=== PATIENT | male | born 1935 | race Caucasian/White ===

== ENCOUNTER 2019-05-31 18:08 | Inpatient (IN) | payer OTHER ==
[~2019-05-31] VITALS: Ht 172.7 cm; Wt 108.9 kg
[2019-05-31 18:08] VITALS: BP_SYST 104
--- NOTE | 2019-05-31 18:08 | NUR ---
BROUGHT IN BY ACLS RT AND [facility], PLACED IN BED #1 AND TRIAGED. REPORT GIVEN TO JOSELYN
--- NOTE | 2019-05-31 18:17 | NUR ---
Pt arrived via [facility] ambulance with RT at bedside for transport. Pt arrived from [facility] for abnormal labs. Pt is trach connected to vent, non-verbal. Pt connected to in room monitor.
--- NOTE | 2019-05-31 18:55 | NUR ---
ER Dr. Mancia at bedside examining patient.
--- NOTE | 2019-05-31 19:21 | NUR ---
Pt opens eyes spontaneously, pupils equal, sluggish to light accomodation. Trach-Vent dependent with Vent settings: A/C 14, Vt 500, PEEP 5, FiO2 40%. G-tube present and secure. Suprapubic cath secure and patent with yellow and cloudy urine to tubing and bag. 3-4+ pitting edema to bilat ankles and feet. VSS.
--- NOTE | 2019-05-31 19:21 | NUR ---
Pt endorsed to night RN at bedside.
[2019-05-31 19:36] LABS: MEAN CORPUSCULAR HEMOGLOBIN 35 pg (27-31); MEAN CORPUSCULAR HGB CONC 35 % (32-36); MEAN CORPUSCULAR VOLUME 101 fL (79.0-98.0); PLATELET COUNT (AUTO) 206 K/uL (130-430); RED CELL DISTRIBUTION WIDTH 19.7 % (9.0-15.0); WHITE BLOOD COUNT (AUTO) 9.1 K/uL (4.8-10.8)
[2019-05-31 19:40] LABS: RED BLOOD CELL COUNT(AUTO) 1.98 MIL/uL (4.2-6.2)
--- NOTE | 2019-05-31 19:40 | NUR ---
RT at bedside to obtain ABG. Lab also at bedside.
[2019-05-31 19:44] LABS: ANION GAP 3 (5-15); CALCIUM 8.3 mg/dL (8.4-11.0); CREATININE 0.84 mg/dL (0.55-1.30); GLUCOSE 154 mg/dL (70-99); UREA NITROGEN, BLOOD 67 mg/dL (8-21)
[2019-05-31 19:49] LABS: ALANINE AMINOTRANSFERASE 11 U/L (12-78); ALBUMIN 1.7 g/dL (3.4-4.8); ASPARTATE AMINOTRANSFERASE 20 U/L (10-37); TOTAL BILIRUBIN 0.5 mg/dL (0.0-1.0)
--- NOTE | 2019-05-31 20:00 | NUR ---
In line trach suction provided. Copious amount of thick white mucous suctioned.
[2019-05-31 20:11] LABS: SODIUM SERUM 116 mmol/L (136-145)
[2019-05-31 20:12] LABS: CHLORIDE 77 mmol/L (98-107); POTASSIUM 3.2 mmol/L (3.5-5.1)
--- NOTE | 2019-05-31 20:20 | NUR ---
# 20 gauge angiocath placed to LFA. Use of asceptic technique. Opsite placed over site. Blood return noted. Blood cultures x 2 and lactic acid drawn for lab from site. Flushed with 10 cc of normal saline. No evidence of infiltration noted. Patient tolerated well.
[2019-05-31 20:26] LABS: BAND % (MANUAL) 15 % (0-6); BASOPHILS % (MANUAL) 0 % (0-2); EOSINOPHILS % (MANUAL) 1 % (0-7); LYMPHOCYTES % (MANUAL) 25 % (20-46); MONOCYTES % (MANUAL) 6 % (0-11)
--- NOTE | 2019-05-31 20:30 | NUR ---
WBC WNL (9.1), Bands 15%, Lactic Acid 2.5. No fluid resuscitation per Dr. Stern r/t BNP 323. Zosyn 3.375 to be given.
[2019-05-31] MEDS ORDERED: PIPERACILLIN/TAZO 3.375 GM in NS 50 ML IV ONE (20:45)
[2019-05-31] MEDS ORDERED: LORA10TA7 GT (20:46)
[2019-05-31] MEDS ORDERED: CHLO473M5 MM (20:46)
[2019-05-31] MEDS ORDERED: DOCU-144 GT (20:47)
[2019-05-31] MEDS ORDERED: IPRA3AMP9 INH ×2 (20:48)
[2019-05-31] MEDS ORDERED: APIX2.5T GT (20:49)
[2019-05-31] MEDS ORDERED: CLON1TAB12 PO (20:50)
[2019-05-31] MEDS ORDERED: FURO-149 PO (20:50)
[2019-05-31] MEDS ORDERED: SYN50 GT (20:51)
[2019-05-31] MEDS ORDERED: MIDO10TA GT (20:52)
[2019-05-31] MEDS ORDERED: MULT-1100 GT (20:53)
[2019-05-31] MEDS ORDERED: OMEP-268 GT (20:54)
[2019-05-31] MEDS ORDERED: PHEN100O4 GT (20:55)
[2019-05-31] MEDS ORDERED: SENN8.6T19 PO (20:56)
[2019-05-31] MEDS ORDERED: ACET12.55 PO (20:57)
[2019-05-31] MEDS ORDERED: ACET12.55 GT (20:58)
[2019-05-31] MEDS ORDERED: CRAN1CAP6 GT (20:59)
[2019-05-31] MEDS ORDERED: VALP500S4 GT (21:00)
[2019-05-31] MEDS ORDERED: PIPERACILLIN/TAZOBACTAM 3.375 GM/VIAL (ZOSYN) IV ONE (21:01)
[2019-05-31] MEDS ORDERED: ASCO500S10 GT (21:02)
--- NOTE | 2019-05-31 21:03 | NUR ---
Wounds to decubitus with excoriation from right lateral gluteus to right lateral thigh. Wound to sacrum. No bandages noted to sites. Blue pads beneath pt and stuck to wounds with yellow slough noted. Dsg to left denominational region.
[2019-05-31] MEDS ORDERED: ZINC220T4 GT (21:04)
--- NOTE | 2019-05-31 21:04 | NUR ---
Medication reconciliation completed with information provided by Myron Tapia. Any prior medication reconciliation on file was reviewed and corrected.
[2019-05-31 21:25] LABS: PROTHROMBIN TIME 10.2 SECS (9.5-12.5)
[2019-05-31] MEDS ORDERED: PANTOPRAZOLE SODIUM 40 MG/VIAL (PROTONIX) IVP ONE (21:45)
--- NOTE | 2019-05-31 21:57 | NUR ---
Rubio santacruz in ED - 06/01/19 at 0109 by SDEDAJ Specimen collected for MRSA and sent to lab.
--- NOTE | 2019-05-31 21:59 | NUR ---
Dr. White at bedside.
[2019-05-31] MEDS ORDERED: FUROSEMIDE 100 MG in D5W 90 ML IV SCH (22:15)
[2019-05-31] MEDS ORDERED: ACETAMINOPHEN WITH CODEINE 12.5 ML UDC GT PRN (22:15)
[2019-05-31] MEDS ORDERED: IPRATROPIUM/ALBUTEROL SULFATE 3 ML AMPUL.NEB (DUONEB) INH PRN (22:15)
[2019-05-31 22:35] VITALS: BP_SYST 111
--- NOTE | 2019-05-31 22:35 | NUR ---
Patient will be admitted to care of Dr. White. Admitted to ICU unit. Will go to room 6. Summary report printed. Bedside report given to BENJAMIN Stevens.
--- NOTE | 2019-05-31 22:35 | NUR ---
ADMISSION NOTE Pt admitted from the ER. Pt brought in by ilan and placed in ICU bed 6. Pt connected to in room monitor, VSS with SR seen on the monitor. Pt trach to vent at this time. Vent settings: AC 14, TV 500, Fio2 40% and PEEP 5. Pt tolerating settings well with O2 sats @ 100% and even and unlabored breathing. Pt has a BEAN 20g SL. Patent/benign c/d/i. Gtube noted, clamped at this time. Suprapubic cath noted draining urine to gravity. Bed is locked and in lowest position, call light within, will cont to monitor pt.
[2019-05-31 23:00] VITALS: BP_SYST 90
[2019-05-31 23:44] VITALS: BP_SYST 104
[2019-05-31 23:47] VITALS: BP_SYST 90
[2019-06-01] VITALS (30 sets, daily range): BP systolic 73–141
--- NOTE | 2019-06-01 00:20 | NUR ---
DR FUNEZ NOTIFIED OF CONSULT AND AWARE OF THE LOW NA, BNP RESULTS.NO ORDERS GIVEN THIS TIME
--- NOTE | 2019-06-01 00:25 | NUR ---
DR CALZADA NOTIFIED OF CONSULT.MADE AWARE OF THE ABG RESULTS, VENT SETTINGS AND VITAL SIGNS AND GAVE ORDER.
[2019-06-01] MEDS: NOREPINEPHRINE BITARTRATE 8 MG in D5W 242 ML IV PRN (00:33)
[2019-06-01] MEDS ORDERED: NOREPINEPHRINE 4 MG/4 ML VIAL IV ONE (00:33)
--- NOTE | 2019-06-01 00:33 | NUR ---
Pt's BP low at this time. Levophed started @ 2 mcg/min per MD order. Will cont to monitor pt.
[2019-06-01] MEDS ORDERED: FUROSEMIDE 100 MG/10 ML VIAL ONE ×2 (00:49)
--- NOTE | 2019-06-01 02:00 | NUR ---
CHG CHG bath given to pt at this time, pt tolerated well. No signs of acute distress or discomfort noted. Will cont to monitor pt.
[2019-06-01 02:46] LABS: BILIRUBIN,URINE NEGATIVE (NEGATIVE); COLOR,URINE YELLOW (YELLOW); GLUCOSE,URINE NEGATIVE (NEGATIVE); KETONES,URINE NEGATIVE (NEGATIVE); LEUKOCYTE ESTERASE ,URINE 3+ (NEGATIVE); NITRITE, URINE POSITIVE (NEGATIVE); PH,URINE 7.5 (5.0-8.0); PROTEIN URINE NEGATIVE (NEGATIVE); UROBILINOGEN,URINE 0.2 (0.2-1.0)
[2019-06-01 02:48] LABS: BLOOD, URINE TRACE (NEGATIVE); CLARITY/URINE SLIGHTLY HAZY (CLEAR)
[2019-06-01 03:44] LABS: BACTERIA,URINE MANY /HPF (None Seen); WBC,URINE 20-50 /HPF (0-3)
--- NOTE | 2019-06-01 05:30 | NUR ---
Pt in bed with eyes closed resting comfortably. No signs of acute distress or discomfort noted. Bed is locked and in lowest position, call light within reach, will cont to monitor pt.
[2019-06-01] MEDS: VALPROIC ACID ORAL SYRUP 250 MG/5 ML UDC GT SCH ×2 (06:00→15:26)
[2019-06-01] MEDS: clonazePAM 0.5 MG TABLET PO SCH ×2 (06:00→15:28)
[2019-06-01 06:47] LABS: BASOPHILS # (AUTO) 0.1 K/uL (0.0-0.2); BASOPHILS % (AUTO) 0.5 % (0.0-2.0); EOSINOPHILS # (AUTO) 0.1 K/uL (0.0-0.4); EOSINOPHILS % (AUTO) 0.5 % (0.0-4.0); HEMATOCRIT 23.4 % (36-54); HEMOGLOBIN 8.1 g/dL (14.0-18.0); LYMPHOCYTES # (AUTO) 2.2 K/uL (1.0-5.5); LYMPHOCYTES % (AUTO) 16.7 % (20.5-51.5); MEAN CORPUSCULAR HEMOGLOBIN 35 pg (27-31); MEAN CORPUSCULAR HGB CONC 35 % (32-36); MEAN CORPUSCULAR VOLUME 102 fL (79.0-98.0); MONOCYTES # (AUTO) 0.9 K/uL (0.0-1.0); PLATELET COUNT (AUTO) 267 K/uL (130-430); RED CELL DISTRIBUTION WIDTH 19.9 % (9.0-15.0); WHITE BLOOD COUNT (AUTO) 13.3 K/uL (4.8-10.8)
[2019-06-01 06:57] LABS: PROTHROMBIN TIME 10.2 SECS (9.5-12.5)
[2019-06-01] MEDS ORDERED: LEVOTHYROXINE SODIUM 0.05 MG TABLET GT SCH (07:00)
[2019-06-01 07:13] LABS: NEUTROPHILS % (AUTO) 75.3 % (40.0-70.0)
[2019-06-01 07:17] LABS: ALANINE AMINOTRANSFERASE 12 U/L (12-78); ALBUMIN 1.8 g/dL (3.4-4.8); ASPARTATE AMINOTRANSFERASE 16 U/L (10-37); CALCIUM 8.5 mg/dL (8.4-11.0); CREATININE 0.91 mg/dL (0.55-1.30); GLUCOSE 146 mg/dL (70-99); PHENYTOIN (DILANTIN) 8.9 ug/mL (10.0-20.0); PHOSPHORUS 4.2 mg/dL (2.7-4.5); SODIUM SERUM 121 mmol/L (136-145); TOTAL BILIRUBIN 0.6 mg/dL (0.0-1.0); UREA NITROGEN, BLOOD 58 mg/dL (8-21); VALPROIC ACID 23 ug/mL (50-100)
--- NOTE | 2019-06-01 07:20 | NUR ---
Received patient and report from NOC shift. In no acute distress.
[2019-06-01] MEDS ORDERED: FUROSEMIDE 100 MG in D5W 90 ML IV SCH (07:23)
--- NOTE | 2019-06-01 07:25 | NUR ---
ENDORSEMENT Report given to oncoming dayshift RN using SBAR format and pt care was endorsed. No signs of acute distress or discomfort noted.
[2019-06-01 07:35] LABS: TOTAL IRON BIND. CAPACITY 239 ug/dL (250-450)
[2019-06-01 07:43] LABS: ANION GAP 2 (5-15); CHLORIDE 82 mmol/L (98-107); FREE T4 (FREE THYROXINE) 0.9 ng/dL (0.6-1.6); THYROID STIMULATING HORMONE 10.95 uIu/mL (0.34-4.82)
[2019-06-01 07:44] LABS: POTASSIUM 2.9 mmol/L (3.5-5.1)
[2019-06-01] MEDS ORDERED: POTASSIUM CHLORIDE 40 MEQ in NS 250 ML IV ONE (08:15)
--- NOTE | 2019-06-01 08:40 | NUR ---
Conservator Francesca eduardo [phone] Spoke with Myron Tapia regarding who makes medical decisions. They indicated to call the conservator Francesca. Called Francesca Dsouza at number indicated above. Her VM referred me to Emergency # [phone]. I called this number and no one answered and unable to leave a message. I called Francesca back at the number above and left her a VM indicating that I need urgent consent for procedures for their member that is here in the ICU. I also informed her that I was unable to reach anyone at the Emergency number provided in VM. I also indicated that her outgoing VM instructs the caller to call the emergency number if they are not available, yet there is no other number listed to call.
[2019-06-01] MEDS ORDERED: SENNOSIDES 8.6 MG TABLET GT PRN (08:45)
[2019-06-01] MEDS: PHENYTOIN 100 MG/4 ML UDC (DILANTIN) GT SCH ×2 (08:50→21:21)
[2019-06-01] MEDS: PANTOPRAZOLE SODIUM 40 MG/VIAL (PROTONIX) IVP SCH ×2 (08:50→21:21)
[2019-06-01] MEDS: LORATADINE 10 MG TABLET GT SCH (08:50)
[2019-06-01] MEDS: DOCUSATE SODIUM 100 MG CAPSULE PO SCH ×2 (08:50→21:20)
[2019-06-01] MEDS: CHLORHEXIDINE GLUCONATE 15 ML/DOSE, 480 ML MM SCH ×2 (09:38→21:45)
[2019-06-01] MEDS: ASCORBIC ACID 500 MG TABLET GT SCH (09:38)
[2019-06-01] MEDS: MULTIVITS,CA,MINERALS/IRON/FA 1 TABLET GT SCH (09:38)
[2019-06-01] MEDS ORDERED: NS 500 ML IV ONE (11:08)
--- NOTE | 2019-06-01 11:34 | NUR ---
Informed MD White hemoglobin 8.1 and hematocrit 23.4. Requested PICC line and DVT prophylaxis. MD White new order of venous doppler of bilateral lower extremities, midline, and to collect stool to test for occult blood. Orders placed.
[2019-06-01] MEDS: NACL 0.9% 1,000 ML IV SCH ×3 (11:58→17:59)
--- NOTE | 2019-06-01 12:24 | NUR ---
Nutrition Update Momo Scale 11 noted. Pt admitted for anemia and possible GI bleed. Diet: NPO BMI: 36.5 kg/m2 RD to follow per nutrition care standards.
[2019-06-01] MEDS ORDERED: CEFEPIME 1 GM in D5W 50 ML IV ONE (12:30)
[2019-06-01] MEDS: MICAFUNGIN SODIUM 100 MG in NS 100 ML IV SCH (15:28)
[2019-06-01] MEDS ORDERED: POTASSIUM CHLORIDE 20 MEQ/PKT PACKET PO ONE (17:30)
[2019-06-01] MEDS ORDERED: EPOETIN ALFA 4,000 UNITS/ML VIAL SUBCUT ONE (17:30)
--- NOTE | 2019-06-01 17:56 | NUR ---
Consult called for Dr. Muro and spoke to Helena.
--- NOTE | 2019-06-01 19:18 | NUR ---
Endorsed patient and gave report to oncoming shift. In no acute distress.
[2019-06-01] MEDS ORDERED: FLU VACC TS2019(65UP)/MF59C/PF 45 MCG/0.5 ML SYRINGE I.M. PRN (19:30)
--- NOTE | 2019-06-01 20:00 | NUR ---
TRACH TO VENT. RESPONDS TO NOXIOUS STIMULI. SUCTIONED TRACH VIA SANDHU WITH MOD AMOUNT OF THIN WHITE MUCUS OBTAINED. ORAL CARE GIVEN. GT CLAMPED. ON LEVOPHED DRIP AT 9 MCG/MIN. LASIX DRIP AT 5 MG/HR. AC PICC LINE DRSG D/I. SUPRAPUBIC CATH PATENT DRAINING CLEAR ROLO URINE TO GRAVITY. SR.
--- NOTE | 2019-06-01 21:00 | NUR ---
FLU SHOT GIVEN.
[2019-06-01] MEDS ORDERED: FUROSEMIDE 40 MG/4 ML VIAL ONE (21:15)
[2019-06-01] MEDS ORDERED: FUROSEMIDE 20 MG/2 ML VIAL ONE (21:16)
[2019-06-01] MEDS: POTASSIUM CHLORIDE 20 MEQ/PKT PACKET GT SCH (21:20)
[2019-06-01] MEDS: CEFEPIME 1 GM in D5W 50 ML IV SCH (21:21)
[2019-06-01] MEDS: FUROSEMIDE 100 MG in D5W 90 ML IV SCH (21:45)
--- NOTE | 2019-06-01 22:00 | NUR ---
HS CARE. SUCTIONED. TURNED. SCD'S CONTRAINDICATED BECAUSE OF MULTIPLE LEG WOUNDS.
[2019-06-02] VITALS (33 sets, daily range): BP systolic 102–142
--- NOTE | 2019-06-02 | NUR ---
GT FEEDING WITH PIVOT 1.5 STARTED AT 30CC/HR PER ORDER. GT FLUSHED WITH 50 CC H2O. ORAL CARE DONE. SUCTIONED WITH SAME RESULTS. TURNED AND REPOSITIONED.
--- NOTE | 2019-06-02 02:00 | NUR ---
ASLEEP. LEVOPHED DECREASED TO 8 MCG/MIN. SUCTIONED. TURNED.
[2019-06-02] MEDS: NACL 0.9% 1,000 ML IV SCH ×2 (02:21→15:06)
--- NOTE | 2019-06-02 04:00 | NUR ---
SUCTIONED. ORAL CARE DONE. TURNED. RESIDUAL CHECK 0.
[2019-06-02] MEDS ORDERED: NOREPINEPHRINE 4 MG/4 ML VIAL IV ONE (05:16)
[2019-06-02] MEDS: NOREPINEPHRINE BITARTRATE 8 MG in D5W 242 ML IV PRN (05:24)
--- NOTE | 2019-06-02 06:00 | NUR ---
OPENS EYES SPON. SUCTIONED AND TURNED Q2 HRS AND PRN. UO GOOD. GT FLUSHED WITH 50CC H2O. LASIX AT 5MG/HR. LEVOPHED AT 8 MCG/MIN. REMAINS IN GUARDED CONDITION.
[2019-06-02] MEDS: LEVOTHYROXINE SODIUM 0.075 MG TABLET PO SCH (06:06)
[2019-06-02 07:20] LABS: CHOLESTEROL 149 mg/dL (<200); HDL CHOLESTEROL 47 mg/dL (>45); LDL CHOLESTEROL 84 mg/dL (<100); TRIGLYCERIDES 103 mg/dL (30-150)
[2019-06-02 07:24] LABS: ALBUMIN 1.6 g/dL (3.4-4.8); ANION GAP 3 (5-15); ASPARTATE AMINOTRANSFERASE 16 U/L (10-37); CALCIUM 8.4 mg/dL (8.4-11.0); CHLORIDE 92 mmol/L (98-107); CREATININE 0.84 mg/dL (0.55-1.30); GLUCOSE 208 mg/dL (70-99); POTASSIUM 3.9 mmol/L (3.5-5.1); SODIUM SERUM 130 mmol/L (136-145); TOTAL BILIRUBIN 0.6 mg/dL (0.0-1.0); UREA NITROGEN, BLOOD 40 mg/dL (8-21)
--- NOTE | 2019-06-02 07:25 | NUR ---
AM NOTES: Received report from Dean ALEXANDER. patient lying in bed, open eyes,nonverbal, vent dependent trach shilley 7XLT, TV 500, Fio2 40%, rate 14, peep 5. no s/s of distress.on levophed 8mcg/kg/min. bp 108/45. picc line right upper arm patent with good blood return. g-tube pivot 1.5@ 30ml/hr. hob elevated to prevent aspiration. suprapubic cath draining dark yellow output. multiple skin issue, lyly lower extremities edematous elevated with pillow.
[2019-06-02] MEDS: POTASSIUM CHLORIDE 20 MEQ/PKT PACKET GT SCH ×2 (08:13→20:43)
[2019-06-02] MEDS: CEFEPIME 1 GM in D5W 50 ML IV SCH ×2 (08:13→20:48)
[2019-06-02] MEDS: PANTOPRAZOLE SODIUM 40 MG/VIAL (PROTONIX) IVP SCH ×2 (08:13→20:43)
[2019-06-02] MEDS: MULTIVITS,CA,MINERALS/IRON/FA 1 TABLET GT SCH (08:14)
[2019-06-02] MEDS: LORATADINE 10 MG TABLET GT SCH (08:14)
[2019-06-02] MEDS: ASCORBIC ACID 500 MG TABLET GT SCH (08:14)
[2019-06-02] MEDS: DOCUSATE SODIUM 100 MG CAPSULE PO SCH ×2 (08:14→20:43)
[2019-06-02] MEDS: PHENYTOIN 100 MG/4 ML UDC (DILANTIN) GT SCH ×2 (08:14→20:44)
[2019-06-02 08:15] LABS: ALANINE AMINOTRANSFERASE 7 U/L (12-78)
[2019-06-02] MEDS: CHLORHEXIDINE GLUCONATE 15 ML/DOSE, 480 ML MM SCH ×2 (08:16→20:56)
--- NOTE | 2019-06-02 09:00 | NUR ---
GI CONSULT: SEEN BY Fatuma FINK
--- NOTE | 2019-06-02 12:00 | NUR ---
ID CONSULT: SEEN BY DR. WARD.
[2019-06-02] MEDS: MICAFUNGIN SODIUM 100 MG in NS 100 ML IV SCH (12:15)
--- NOTE | 2019-06-02 13:15 | NUR ---
Dietitian Recommendations *Recommend Pivot 1.5 at 45ml/hr, Caden BID via GT. *FWF per physician. Provides: 1780 kcal, 106 gm protein and 819ml free water daily. Meets: 103% of estimated calorie needs and 101% of upper end of estimated protein needs. Please see Nutritional Assessment. LILIA, RD
--- NOTE | 2019-06-02 13:30 | NUR ---
G-TUBE FEEDING. INCREASE G TUBE FEEDING TO 40 ML/HR. GOAL 45ML/HR PER DIETITIAN RECOMMENDATION.
--- NOTE | 2019-06-02 13:39 | NUR ---
SS Notes: COUNTER CASER was referred to see pt for assessment. Pt is unable to be interviewed to due condition. COUNTER CASER attempted to phone conservator, Francesca Dsouza @ [phone], left a message to call back for collateral information. Pt is a resident of [facility]. COUNTER CASER spoke with Catherine (SW at [facility] @ [phone]) and information were gathered. Pt has been at [facility] since 10/12/2017 and was referred to them from [facility] and unknown prior to [facility]. Per Catherine, pt has no family and was never . Pt is a resident at their sub-acute unit, and is receiving 24 hr nursing care and respiratory therapy. Pt sees a resource protection specialist 1x/week and wound care on a daily basis. Per Catherine, pt was admitted to their facility with existing wounds. Pt does not qualify for [employer] due to income. SS will follow up with Lyndon (fryer operator).
--- NOTE | 2019-06-02 15:00 | NUR ---
patient keep on coughing, suction, oral care provided. keep hob elevated to prevent aspiration.
[2019-06-02] MEDS: LORazepam 2 MG/ML VIAL IVP PRN (15:06)
[2019-06-02] MEDS: FUROSEMIDE 100 MG in D5W 90 ML IV SCH (17:00)
--- NOTE | 2019-06-02 17:00 | NUR ---
WOUND EVALUATION: Late note for 06/02/19 at 1700 secondary to patient care. Wound Consult received from Dr. White. Thank you, Dr. White, for the consult. Patient received in a [place] Bed with an IsoFlex CHILO mattress, obtunded. Patient unable to turn in bed independently. Momo Score is an 11. Past Medical History: Tracheostomy, persistent vegetative state, Chronic Respiratory Failure, COPD, Obesity, chronic ventilator dependence, Dysphagia, G-tube feeding, Seizure disorder, CVA, Hypothyroidism, Hypertension. Recent Labs: WBC 13.3, RBC 2.30, hemoglobin 8.1, hematocrit 23.4, sodium 130, chloride 92, BUN 40, creatinine 0.84, glucose 208, magnesium 2.5, alkaline phosphatase 324, albumin 1.6. Microbiology: Wound culture results 2 in progress. Urine culture results negative. MRSA screen results negative. Stool occult blood results negative. Patient admitted with Hgb/Hct of 7.0/20.0. Intrinsic factors that delay wound healing: Chronic Respiratory Failure, COPD, chronic ventilator dependence, Dysphagia, G-tube feeding. Extrinsic factors that delay wound healing: Decreased mobility. Wound Assessment: 1. Left Heel: Arterial ulcer per [facility] staff, present on admission. Wound bed has 40% yellow slough, 40% brown slough, 10% pink tissue, 5% red tissue, 5% back slough. Foul odor, scant yellow purulent drainage. Periwound intact. Wound measures 5.8 cm x 5.0 cm. Recommend: Cleanse wound with normal saline. Apply moisture barrier cream to diana-wound. Apply Venelex ointment to wound bed. Cover with foam dressing. Perform wound care daily, and as needed for dressing soiling or dislodgement. 2. Left lateral malleolus: [facility], present on admission. Wound bed has 90% yellow slough, 10% pink tissue. No odor, scant yellow purulent drainage. Periwound intact. Wound measures 3.0 cm x 2.0 cm x 0.4 cm. Recommend: Cleanse wound with normal saline. Apply moisture barrier cream to diana-wound. Apply Venelex ointment to wound bed. Cover with foam dressing. Perform wound care daily, and as needed for dressing soiling or dislodgement. 3. Left distal posterior lower extremity, superior to calcaneus: Chronic wound of unknown etiology, present on admission. Site has 90% pink scar tissue, 10% brown scab. No odor, no drainage. Periwound intact. Site measures 1.2 cm x 1.2 cm. Recommend: Cleanse site with normal saline. Apply moisture barrier cream to site. Cover with foam dressing. Perform site care daily, and as needed for dressing soiling or dislodgement. 4. Right lateral lower extremity: Area of elevated tissue, with 80% pink tissue, 10% black discoloration, 10% red discoloration. No odor, no drainage. Diana-site intact. Site measures 2.0 cm x 1.7 cm. Recommend: Cleanse site with normal saline. Apply moisture barrier cream to site. Cover with foam dressing. Perform site care daily, and as needed for dressing soiling or dislodgement. 5. Right lateral lower extremity, inferior to site 3: Arterial ulcer per [facility] staff, present on admission. Wound bed has 85% yellow slough, 10% pink tissue, 5% red tissue. No odor, no drainage. Periwound intact. Wound measures 7.0 cm x 3.0 cm. 6. Right lateral foot: Arterial ulcer per [facility] staff, present on admission. Wound bed has 85% yellow slough, 10% pink tissue, 5% red tissue. No odor, no drainage. Periwound intact. Wound measures 2.7 cm x 1.7 cm x 0.3 cm. Recommend: Cleanse wounds with normal saline. Apply moisture barrier cream to diana-wounds. Apply Venelex ointment to wound beds. Cover with foam dressings. Perform wound care daily, and as needed for dressing soiling or dislodgement. 7. Posterior back: 8. Posterior bilateral thighs: 9. Pelvic area: 10. Sacral-Coccygeal/Buttocks areas: 11. Abdominal fold: 12. Bilateral inguinal folds: All areas have severe IAD with fungal infection, present on admission. Site have dark red tissue with large amounts of dry, flaky skin. Entire area from back area to Buttocks areas measured 66.7 cm x 48.5 cm. Recommend: Cleanse involved areas with mild soap and water. Pat dry. Place antifungal powder to involved areas. Lay inter-dry AG cloth underneath patient to hold antifungal powder onto skin. Perform site care twice a day, and as needed for soiling. 13. Scrotal area: Severe IAD with fungal infection, present on admission. Site has dark red tissue. Recommend: Cleanse involved area with mild soap and water. Pat dry. Apply antifungal powder to involved area. Lay inter-dry AG cloth underneath Scrotum and pull Scrotum up off of bed by pulling cloth through bilateral thigh/inguinal areas. Perform site care twice a day, and as needed for soiling. 14. Sacral-Coccygeal/Buttocks areas: Moisture associated skin damage that is converting to a pressure ulcer, present on admission. Site has 70% red tissue, 30% black scab versus eschar. No odor, scant sanguineous drainage. Entire site measures 16.0 cm x 14.5 cm. Recommend: Cleanse site with normal saline. Apply moisture barrier cream to diana-wound. Apply Venelex ointment to wound bed. Cover with non-adhesive foam dressings. Secure with transparent dressings. Perform wound care daily, and as needed for dressing soiling or dislodgement. 15. Posterior neck: Moisture associated skin damage from trach collar and intertriginous area, present on admission. Site has 90% denuded pink skin, 5% red scab, 5% black scab. No odor, scant serous drainage. Site measures 2.7 cm x 3.0 cm. 16. Left lateral neck: Moisture associated skin damage from trach collar and intertriginous area, present on admission. Patient also leans his head to the left, further compressing this area causing increased moisture. Site has 100% denuded pink skin. No odor, scant serous drainage. Site measures 2.7 cm x 3.0 cm. Recommend: Cleanse sites with normal saline. Thoroughly pat dry. Apply antifungal powder to sites. Cover with alginate dressing. Cut inter-dry AG cloth to size and place inside of trach collar over the alginate dressing. Perform site care BID, and as needed for dressing soiling or dislodgement. Change inter-dry AG cloth every 5 days, and as needed for cloth soiling or dislodgment. 17. Left lateral forehead: Wound, present on admission. Wound bed has 90% pink tissue, 5% red tissue, 5% yellow tissue. No odor, scant sanguineous is drainage. Periwound intact. Wound measures 2.7 cm x 3.0 cm. Recommend: Cleanse wound with normal saline. Apply moisture barrier cream to diana-wound. Apply Venelex ointment to wound bed. Cover with foam dressing. Perform wound care daily, and as needed for dressing soiling or dislodgement. Also recommend: Reposition patient side to side only every 2 hours with pillow support and off-load pressure areas with pillows for pressure re-distribution. Offload, elevate and float bilateral heels with pillows. Perform skin care and monitor skin integrity Q shift. Use moisture barrier cream on buttocks and other moisture susceptible areas QID and as needed for soiling. Initiate low air-loss therapy.
--- NOTE | 2019-06-02 17:00 | NUR ---
assisted wound care nurse. wound care provided.
[2019-06-02] MEDS ORDERED: ALBUMIN HUMAN 25% 200 ML IV ONE (17:45)
[2019-06-02] MEDS ORDERED: DEXTROSE 50% JECT 50 ML DISP.SYRIN IVP PRN (18:15)
--- NOTE | 2019-06-02 18:15 | NUR ---
MD mora is here updated patient current condition. informed patien has hx of Dm and no accucheck or sliding scale. stated he will order.
[2019-06-02] MEDS: NYSTATIN 15 GM TOPICAL POWDER TP SCH ×2 (18:47→20:50)
[2019-06-02] MEDS: INSULIN REGULAR, HUMAN 100 UNITS/ML, 10 ML VIAL (humuLIN R) SUBCUT PRN (18:48)
--- NOTE | 2019-06-02 19:01 | NUR ---
albumin iv infusing, blood pressure 129/59, decrease Levophed 4mcg/kg/min. patient stable condition. no s/s of distress, blood sugar 206, 4 units of regular insulin administered. g tube feeding infusing no residual noted 45ml/hr. Shipman catheter draining yellow color. lasix drip @5mg/hr. ns @ 100ml/hr. picc line patent with good blood return. all needs mets. will endorsed to incoming nurse.
--- NOTE | 2019-06-02 19:20 | NUR ---
AT 1920 P.M, RECEIVED NURSING REPORT FROM DAY SHIFT RMindaN, PATIENT IS OPEN EYES, NON VERBAL RESPONSE, UNABLE TO FOLLOW COMMANDS, TRACH VIA VENT. VENTILATOR SETTING : AC 14, TV 500, FIO2 40% PEEP 5, O2 SAT. 97-100%, B.P 124/59 MMHG, DEPENDED LEVOPHED DRIP 4 MCG/MIN, H.R 83 IS SINUS RHYTHM WITH FIRST DEGREE A-V BLOCK, RIGHT UPPER ARM PICC LINE DOUBLE LUMEN , HAD BLOOD RETURN, ORDERED ON LASIX 5 MG/HOUR, GENERALIZED EDEMA, G-T INTACT, FORMULA FEEDING TOLERATED WELL, SUPRAPUBIC CATHETER INTACT, DRAIN OUT YELLOW COLOR URINE, GIVE TOTAL CARE, REPOSITION EVERY 2 HOURS, KEEP DRY, CLEAN, COMFORTABLE SUPPORT ALL TIMES
[2019-06-02] MEDS: SOD FERRIC GLUC COMPLEX/SUC 125 MG in NS 100 ML IV SCH (20:43)
[2019-06-03] VITALS (33 sets, daily range): BP systolic 84–129
[2019-06-03] MEDS: NACL 0.9% 1,000 ML IV SCH ×2 (00:11→11:53)
[2019-06-03] MEDS: INSULIN REGULAR, HUMAN 100 UNITS/ML, 10 ML VIAL (humuLIN R) SUBCUT PRN ×5 (00:17→23:47)
[2019-06-03] MEDS: FUROSEMIDE 100 MG in D5W 90 ML IV SCH (00:58)
[2019-06-03] MEDS: LEVOTHYROXINE SODIUM 0.075 MG TABLET PO SCH (06:03)
[2019-06-03 06:06] LABS: MEAN CORPUSCULAR HEMOGLOBIN 36 pg (27-31); MEAN CORPUSCULAR HGB CONC 34 % (32-36); MEAN CORPUSCULAR VOLUME 106 fL (79.0-98.0); PLATELET COUNT (AUTO) 190 K/uL (130-430); RED CELL DISTRIBUTION WIDTH 20.2 % (9.0-15.0); WHITE BLOOD COUNT (AUTO) 9.9 K/uL (4.8-10.8)
[2019-06-03 06:20] LABS: RED BLOOD CELL COUNT(AUTO) 1.92 MIL/uL (4.2-6.2)
[2019-06-03 06:21] LABS: HEMATOCRIT 20.3 % (36-54); HEMOGLOBIN 6.9 g/dL (14.0-18.0)
[2019-06-03 06:26] LABS: ALANINE AMINOTRANSFERASE 12 U/L (12-78); ALBUMIN 2.2 g/dL (3.4-4.8); ASPARTATE AMINOTRANSFERASE 14 U/L (10-37); CALCIUM 7.9 mg/dL (8.4-11.0); CHLORIDE 96 mmol/L (98-107); CREATININE 0.85 mg/dL (0.55-1.30); GLUCOSE 207 mg/dL (70-99); LACTATE DEHYDROGENASE 126 U/L (85-227); PHOSPHORUS 2.9 mg/dL (2.7-4.5); POTASSIUM 4.5 mmol/L (3.5-5.1); SODIUM SERUM 130 mmol/L (136-145); TOTAL BILIRUBIN 0.7 mg/dL (0.0-1.0); UREA NITROGEN, BLOOD 33 mg/dL (8-21)
[2019-06-03 06:31] LABS: BAND % (MANUAL) 3 % (0-6); BASOPHILS % (MANUAL) 0 % (0-2); EOSINOPHILS % (MANUAL) 1 % (0-7); LYMPHOCYTES % (MANUAL) 22 % (20-46); METAMYELOCYTES % 3 % (0-0); MONOCYTES % (MANUAL) 12 % (0-11); MYELOCYTES % 5 % (0-0)
[2019-06-03 06:35] LABS: ANION GAP < 3 (5-15)
--- NOTE | 2019-06-03 06:49 | NUR ---
AT 0600 A.M, RECEIVED A/M LAB, H.b 6.8, REQUEST REDRAW H.b IS 6.9, AT [address] EUGENE , ORDERED GIVE BLOOD TRANSFUSION P-RBC 2 UNITS IN THIS MORNING
--- NOTE | 2019-06-03 07:20 | NUR ---
Opening Note Received plan of care from endorsing nurse Kaylah ALEXANDER. Completed patient round.
--- NOTE | 2019-06-03 07:30 | NUR ---
Called Francesca Bishop [phone] left message to discuss blood consent.
--- NOTE | 2019-06-03 07:33 | NUR ---
GIVE COMPLETE NURSING REPORT TO DAY SHIFT ALEJANDRINA Beach
[2019-06-03] MEDS: NOREPINEPHRINE BITARTRATE 8 MG in D5W 242 ML IV PRN (08:09)
--- NOTE | 2019-06-03 09:00 | NUR ---
Called Francesca Bishop [phone] left message to discuss blood consent.
[2019-06-03] MEDS: CHLORHEXIDINE GLUCONATE 15 ML/DOSE, 480 ML MM SCH ×2 (09:20→20:37)
[2019-06-03] MEDS: CEFEPIME 1 GM in D5W 50 ML IV SCH ×2 (09:21→20:26)
[2019-06-03] MEDS: BALSAM PERU/CASTOR OIL 60 GM OINT...G. TP SCH (09:21)
[2019-06-03] MEDS: ASCORBIC ACID 500 MG TABLET GT SCH (09:22)
[2019-06-03] MEDS: PHENYTOIN 100 MG/4 ML UDC (DILANTIN) GT SCH ×2 (09:22→20:33)
[2019-06-03] MEDS: PANTOPRAZOLE SODIUM 40 MG/VIAL (PROTONIX) IVP SCH ×2 (09:22→20:33)
[2019-06-03] MEDS: POTASSIUM CHLORIDE 20 MEQ/PKT PACKET GT SCH (09:22)
[2019-06-03] MEDS: LORATADINE 10 MG TABLET GT SCH (09:23)
[2019-06-03] MEDS: NYSTATIN 15 GM TOPICAL POWDER TP SCH ×2 (09:23→20:34)
[2019-06-03] MEDS: MULTIVITS,CA,MINERALS/IRON/FA 1 TABLET GT SCH (09:23)
[2019-06-03] MEDS: DOCUSATE SODIUM 100 MG CAPSULE PO SCH ×2 (09:23→20:33)
--- NOTE | 2019-06-03 09:30 | NUR ---
Called Francesca Bishop [phone] left message to discuss blood consent.
--- NOTE | 2019-06-03 10:00 | NUR ---
Received call from venancio Bishop. Received telephone consent for blood transfusion. Second RN witnessed.
--- NOTE | 2019-06-03 10:26 | NUR ---
Prep Person Note Patient's conservator, Francesca Stanfordn [phone], left a voicemail message. ICU stated they have received consent for the transfusions. Returned the call to conservator requesting verification that she agrees for patient to return to [facility] upon discharge.
--- NOTE | 2019-06-03 10:30 | NUR ---
Dr. Meredith at bedside. Received orders to reduce lasix to 3mg/hr.
--- NOTE | 2019-06-03 14:37 | NUR ---
Dr. White at bedside. Per Dr. White we will cancel NS fluid. Dr. White will place orders.
[2019-06-03] MEDS ORDERED: FLUDROCORTISONE ACETATE 0.1 MG TABLET( FLORINEF) PO ONE (15:30)
[2019-06-03] MEDS: MICAFUNGIN SODIUM 100 MG in NS 100 ML IV SCH (17:39)
--- NOTE | 2019-06-03 20:00 | NUR ---
AT 1913 P.M, RECEIVED NURSING REPORT FROM DAY SHIFT ALEJANDRINA Beach, AT 1949 P.M, FINISHED BLOOD TRANSFUSION P-RBC SECOND UNIT ,NO S/S OF ADVERSE REACTION AT THIS TIME ,PATIENT IS OPEN EYES, UNABLE TO FOLLOW COMMANDS , DEPENDED TOTAL CARE, VENT VIA TRACH, CONTINUE LASIX DRIP 3 MG/3 ML/HOUR, GIVE REPOSITION EVERY 2 HOURS, PADDED RAILS UP, KEEP CLEAN, SAFETY, COMFORTABLE SUPPORT ALL TIMES
[2019-06-03] MEDS: SOD FERRIC GLUC COMPLEX/SUC 125 MG in NS 100 ML IV SCH (20:26)
[2019-06-03] MEDS: CLOTRIMAZOLE/BETAMET DIPROP 15 GM TUBE TP SCH (20:38)
[2019-06-03] MEDS: FLUDROCORTISONE ACETATE 0.1 MG TABLET( FLORINEF) PO SCH (20:55)
[2019-06-03] MEDS: LORazepam 2 MG/ML VIAL IVP PRN (23:45)
[2019-06-04] VITALS (33 sets, daily range): BP systolic 85–118
--- NOTE | 2019-06-04 00:11 | NUR ---
AT 2342 P.M, FOND PATIENT HAD SEIZURE ATTACK SUDDENLY, ORDERED GIVE ATIVAN 1 MG IVP , THEN PATIENT IS CALM ,KEEP CLOSE MONITOR
[2019-06-04] MEDS: FUROSEMIDE 100 MG in D5W 90 ML IV SCH ×2 (00:24→17:00)
[2019-06-04 05:23] LABS: BASOPHILS % (AUTO) 0.5 % (0.0-2.0); EOSINOPHILS # (AUTO) 0.2 K/uL (0.0-0.4); EOSINOPHILS % (AUTO) 2.1 % (0.0-4.0); HEMATOCRIT 24.5 % (36-54); HEMOGLOBIN 8.3 g/dL (14.0-18.0); LYMPHOCYTES # (AUTO) 2.2 K/uL (1.0-5.5); LYMPHOCYTES % (AUTO) 25.1 % (20.5-51.5); MEAN CORPUSCULAR HEMOGLOBIN 33 pg (27-31); MEAN CORPUSCULAR HGB CONC 34 % (32-36); MEAN CORPUSCULAR VOLUME 99 fL (79.0-98.0); MONOCYTES # (AUTO) 0.8 K/uL (0.0-1.0); MONOCYTES % (AUTO) 9.7 % (1.7-9.3); NEUTROPHILS # (AUTO) 5.4 K/uL (1.8-7.7); NEUTROPHILS % (AUTO) 62.6 % (40.0-70.0); PLATELET COUNT (AUTO) 158 K/uL (130-430); RED BLOOD CELL COUNT(AUTO) 2.48 MIL/uL (4.2-6.2); RED CELL DISTRIBUTION WIDTH 24.6 % (9.0-15.0); WHITE BLOOD COUNT (AUTO) 8.6 K/uL (4.8-10.8)
[2019-06-04 05:34] LABS: ALANINE AMINOTRANSFERASE 11 U/L (12-78); ASPARTATE AMINOTRANSFERASE 14 U/L (10-37); CALCIUM 7.9 mg/dL (8.4-11.0); CHLORIDE 102 mmol/L (98-107); CREATININE 0.75 mg/dL (0.55-1.30); GLUCOSE 194 mg/dL (70-99); POTASSIUM 4.8 mmol/L (3.5-5.1); SODIUM SERUM 136 mmol/L (136-145); TOTAL BILIRUBIN 0.5 mg/dL (0.0-1.0); UREA NITROGEN, BLOOD 29 mg/dL (8-21)
[2019-06-04] MEDS: INSULIN REGULAR, HUMAN 100 UNITS/ML, 10 ML VIAL (humuLIN R) SUBCUT PRN ×4 (05:44→23:37)
[2019-06-04 05:59] LABS: ANION GAP < 3 (5-15)
[2019-06-04] MEDS: LEVOTHYROXINE SODIUM 0.075 MG TABLET PO SCH (06:01)
--- NOTE | 2019-06-04 07:15 | NUR ---
Endorsement Received shift report from night RN.
--- NOTE | 2019-06-04 07:27 | NUR ---
GIVE COMPLETE NURSING REPORT TO DAY SHIFT BETY Beach, AND COLETTE Beach
--- NOTE | 2019-06-04 08:00 | NUR ---
AM Assessment Pt on Trach ventilator, Shiley 7.0 AC 14, TV 500, FiO2 40, PEEP 5. AC PICC running NS TKO @ 3cc/hr. Tube feeding Pivot 1.5 running at 45cc. Shipman draining clear yellow. Bed in lowest position, locked with drapes open and call light within reach.
--- NOTE | 2019-06-04 08:45 | NUR ---
Provided 0800 oral care. Pt tolerated well. Saturating at 97%
[2019-06-04] MEDS: POTASSIUM CHLORIDE 20 MEQ TAB.PRT.SR PO SCH (09:00)
[2019-06-04] MEDS: PANTOPRAZOLE SODIUM 40 MG/VIAL (PROTONIX) IVP SCH ×2 (09:46→20:07)
[2019-06-04] MEDS: DOCUSATE SODIUM 100 MG CAPSULE PO SCH ×2 (09:46→20:06)
[2019-06-04] MEDS: PHENYTOIN 100 MG/4 ML UDC (DILANTIN) GT SCH ×2 (09:46→20:07)
[2019-06-04] MEDS: MULTIVITS,CA,MINERALS/IRON/FA 1 TABLET GT SCH (09:46)
[2019-06-04] MEDS: FLUDROCORTISONE ACETATE 0.1 MG TABLET( FLORINEF) PO SCH ×2 (09:46→20:06)
[2019-06-04] MEDS: LORATADINE 10 MG TABLET GT SCH (09:46)
[2019-06-04] MEDS: ASCORBIC ACID 500 MG TABLET GT SCH (09:46)
[2019-06-04] MEDS: NYSTATIN 15 GM TOPICAL POWDER TP SCH ×2 (09:47→20:09)
[2019-06-04] MEDS: BALSAM PERU/CASTOR OIL 60 GM OINT...G. TP SCH (09:47)
[2019-06-04] MEDS: CHLORHEXIDINE GLUCONATE 15 ML/DOSE, 480 ML MM SCH ×2 (09:48→20:08)
[2019-06-04] MEDS: CLOTRIMAZOLE/BETAMET DIPROP 15 GM TUBE TP SCH ×2 (09:50→20:09)
[2019-06-04] MEDS: CEFEPIME 1 GM in D5W 50 ML IV SCH ×2 (09:50→21:24)
--- NOTE | 2019-06-04 11:15 | NUR ---
Nutrition F/U RD reviewed pt's current EMR including diet Hx, physician's notes, nursing notes, pertinent labs/meds/procedures, care trends, and care activity. Admitting Dx: Anemia, possible GI bleed PMH: Pt found w/ profound anemia, possible acute blood loss anemia, severe hyponatremia, [place]/CKD, chronic respiratory failure w/ chronic vent-dependence, COPD, tracheostomy, vegetative State, dysphagia on GT feeding, obesity, seizure disorder, CVA w/ quadriplegia, hypothyroidism, HTN per MD notes. Current Nutrition Support: Pivot 1.5 at 45 ml/hr, Caden BID, Free Water Flush: 50 q6h via GT x2 days Subjective Info: Pt seen resting in bed, +trach to vent, w/ TF hung and nearly empty but not infusing at time of RD visit. Per RN, pt's TF was held earlier today d/t medication indication (dilantin). RN stated he would replace TF formula and tubing within the next half hour and also administer Caden as per physician order. Pt had 0 ml GRV, and no pending plans/procedures per RN report. Current TF regimen remains appropriate. Usual Diet At Home Nepro 1.8 at 40ml/hr x 18 hrs per hard chart review Skin Integrity Comment: Momo scale: 12; per Publicity Consultant note 06/02/19: 1. Left Heel: Arterial ulcer per [facility] staff, present on admission. 2. Left lateral malleolus: Arterial ulcer per [facility] staff, present on admission. 3. Left distal posterior lower extremity, superior to calcaneus: Chronic wound of unknown etiology, present on admission. 4. Right lateral lower extremity: Area of elevated tissue, with 80% pink tissue, 10% black discoloration, 10% red discoloration. 5. Right lateral lower extremity, inferior to site 3: Arterial ulcer per [facility] staff, present on admission. 6. Right lateral foot: Arterial ulcer per [facility] staff, present on admission. 7. Posterior back: 8. Posterior bilateral thighs: 9. Pelvic area: 10. Sacral-Coccygeal/Buttocks areas: 11. Abdominal fold: 12. Bilateral inguinal folds: All areas have severe IAD with fungal infection, present on admission. 13. Scrotal area: Severe IAD with fungal infection, present on admission. Site has dark red tissue. 14. Sacral-Coccygeal/Buttocks areas: Moisture associated skin damage that is converting to a pressure ulcer, present on admission. 15. Posterior neck: Moisture associated skin damage from trach collar and intertriginous area, present on admission. 16. Left lateral neck: Moisture associated skin damage from trach collar and intertriginous area, present on admission. 17. Left lateral forehead: Wound, present on admission. NEW Estimated Energy Expenditure (kcals/day) 1775 kcal/day ([employer] 2010 for critical illness; minute volume: 7.4/temperature: 36.9 degrees Celsius) Estimated Protein Required (g/day) 70-105 gm/day (1-1.5 gm/kg IBW for Renal Dz and wound healing) Estimated Fluid Required (l/day) per MD (Renal Dz) Problem/Etiology/Signs/Symptoms Inadequate EN intake r/t medication administration AEB RN report of EN on hold 09/07 medication administration. *ongoing Increased nutrient needs r/t metabolic demands AEB estimated calories and protein for wound healing. *ongoing Expected Outcomes/Goals Monitor EN tolerance and intake w/ goal of pt meeting at least 80% of estimated nutritional needs, labs trending WNL, normal GI function, skin integrity/wt maintenance. Dietitian Recommendations * Recommend continuing Pivot 1.5 at 45 ml/hr, Caden BID, Free Water Flush: 50 q6h via GT Provides: 1780 kcal/day, 106 gm protein/day, and 1020 ml free water/day Meets: 100% of estimated calorie needs and 101% of upper end of estimated protein needs Follow Up High Risk: F/U in 2-3 days Addendum: 06/04/19 at [address] Bed scale wt taken: 256.4# -- likely inaccurate d/t linens. Admission wt: 240# (06/02/19) -- note 16.4# wt change.
--- NOTE | 2019-06-04 11:20 | NUR ---
Automat Car Attendant Bedside
--- NOTE | 2019-06-04 11:36 | NUR ---
Dietitian Recommendations * Recommend continuing Pivot 1.5 at 45 ml/hr, Caden BID, Free Water Flush: 50 q6h via GT Provides: 1780 kcal/day, 106 gm protein/day, and 1020 ml free water/day Meets: 100% of estimated calorie needs and 101% of upper end of estimated protein needs LP, RD Please refer to Nutrition F/U for details.
[2019-06-04] MEDS: MICAFUNGIN SODIUM 100 MG in NS 100 ML IV SCH (12:13)
--- NOTE | 2019-06-04 14:00 | NUR ---
Provided CHG and bed bath.
--- NOTE | 2019-06-04 14:30 | NUR ---
Provided Wound care with Karen client services vice president and two [employer] students. Pt tolerated wound care well, pictures taken and spoke to Lyndon ALEXANDER regarding wound care.
[2019-06-04] MEDS: LORazepam 2 MG/ML VIAL IVP PRN (14:39)
--- NOTE | 2019-06-04 15:30 | NUR ---
Changed gown and bed linens. Provided new bed roll and sheets.
--- NOTE | 2019-06-04 16:30 | NUR ---
Provided oral care, PT tolerated well. Saturating at 96%.
--- NOTE | 2019-06-04 18:34 | NUR ---
Dr White in to see pt.
--- NOTE | 2019-06-04 19:05 | NUR ---
Endorsement Provided end of shift report to night RN.
[2019-06-04] MEDS ORDERED: VALPROIC ACID ORAL SYRUP 250 MG/5 ML UDC GT SCH (19:15)
[2019-06-04] MEDS ORDERED: VALPROIC ACID ORAL SYRUP 250 MG/5 ML UDC GT ONE (19:15)
--- NOTE | 2019-06-04 19:20 | NUR ---
Closing Notes AC PICC running Lasix at 3mg & NS TKO at 3cc Pt resting. No signs of distress. Bed locked and in lowest position. Pt Saturating at 96%. Call light in reach.
--- NOTE | 2019-06-04 19:30 | NUR ---
PM ASSESSMENT Pt in bed with eyes closed resting comfortably. No signs of acute distress or discomfort noted. VSS. Bed is locked and in lowest position, call light within reach, will cont to monitor pt.
--- NOTE | 2019-06-04 19:45 | NUR ---
ENDORSEMENT Report given to BENJAMIN Pedro using SBAR format and pt care was endorsed. No signs of acute distress or discomfort noted.
--- NOTE | 2019-06-04 19:55 | NUR ---
Opening Note Pt in bed, asleep, obtunded. Unable to track or follow commands. Pt is SR on the monitor. Trach to vent. SEttings: AC14, TV 500, FIO2 40%, and PEEP 5. Pt has AC PICC infusing Lasix Drip at 3mg/hr. IV site, C/D/I. No s/s of infiltration noted. Pt has G-tube in place running tube feeding. No residual noted, Pt tolerating well. Suprapubic catheter noted, draining urine to gravity. Pt has multiple skin wounds. Dressing in place, C/D/I. Q2H turns intervention in place. Bed locked in lowest position, call light in reach, and safety precautions in place. Will continue to monitor.
[2019-06-04] MEDS: SOD FERRIC GLUC COMPLEX/SUC 125 MG in NS 100 ML IV SCH (20:07)
[2019-06-05] VITALS (15 sets, daily range): BP systolic 92–125
--- NOTE | 2019-06-05 00:07 | NUR ---
RN Rounds Pt in bed asleep. No s/s of distress noted. Pt Lasix Drip running @3mg/hr. VSS. Will continue to monitor.
--- NOTE | 2019-06-05 03:15 | NUR ---
RN Rounds Pt in bed asleep. No s/s of distress noted. Pt Lasix Drip still running @3mg/hr. Pt has not had any BM at this time. Turns being initiated. VSS. Will continue to monitor.
[2019-06-05 05:21] LABS: BASOPHILS # (AUTO) 0.1 K/uL (0.0-0.2); BASOPHILS % (AUTO) 0.6 % (0.0-2.0); EOSINOPHILS # (AUTO) 0.2 K/uL (0.0-0.4); EOSINOPHILS % (AUTO) 2.1 % (0.0-4.0); HEMATOCRIT 25.7 % (36-54); HEMOGLOBIN 8.6 g/dL (14.0-18.0); LYMPHOCYTES # (AUTO) 2.4 K/uL (1.0-5.5); LYMPHOCYTES % (AUTO) 26.4 % (20.5-51.5); MEAN CORPUSCULAR HEMOGLOBIN 33 pg (27-31); MEAN CORPUSCULAR HGB CONC 33 % (32-36); MEAN CORPUSCULAR VOLUME 100 fL (79.0-98.0); MONOCYTES # (AUTO) 0.9 K/uL (0.0-1.0); MONOCYTES % (AUTO) 9.8 % (1.7-9.3); NEUTROPHILS # (AUTO) 5.5 K/uL (1.8-7.7); NEUTROPHILS % (AUTO) 61.1 % (40.0-70.0); PLATELET COUNT (AUTO) 157 K/uL (130-430); RED BLOOD CELL COUNT(AUTO) 2.58 MIL/uL (4.2-6.2)
--- NOTE | 2019-06-05 05:38 | NUR ---
RN Rounds Pt in bed, asleep. No s/s of distress noted. Lasix Drip running @3mg/hr. No s/s of pain noted. Will continue to monitor.
[2019-06-05 05:39] LABS: ALANINE AMINOTRANSFERASE 12 U/L (12-78); ALBUMIN 2.1 g/dL (3.4-4.8); ASPARTATE AMINOTRANSFERASE 15 U/L (10-37); CALCIUM 8.3 mg/dL (8.4-11.0); CREATININE 0.81 mg/dL (0.55-1.30); GLUCOSE 169 mg/dL (70-99); PHOSPHORUS 2.9 mg/dL (2.7-4.5); POTASSIUM 4.9 mmol/L (3.5-5.1); TOTAL BILIRUBIN 0.5 mg/dL (0.0-1.0); UREA NITROGEN, BLOOD 30 mg/dL (8-21)
[2019-06-05 05:44] LABS: CHLORIDE 106 mmol/L (98-107); SODIUM SERUM 139 mmol/L (136-145)
[2019-06-05] MEDS: LEVOTHYROXINE SODIUM 0.075 MG TABLET PO SCH (06:07)
[2019-06-05 06:13] LABS: ANION GAP < 3 (5-15)
--- NOTE | 2019-06-05 06:34 | NUR ---
PT TRANSFERRED Received patient from ICU, received report from BENJAMIN Pedro.
--- NOTE | 2019-06-05 06:35 | NUR ---
Pt transferred Pt transferred to Tele 102A via gurney, accompanied by RN and RT. Report given to receiving RN at bedside via SBAR approach. Pt stable. All medications and chart transferred w/ Pt.
--- NOTE | 2019-06-05 07:10 | NUR ---
CLOSING NOTES Patient is resting, with twitches. Vent settings for Shiley 7, TV 500, FiO2 40%, no signs of acute respiratory distress observed. Tube feeding with Gtube intact, dressings c/d/i. AC PICC patent, dressings c/d/i. Shipman suprapubic cath in place, dressings c/d/i, no kinks or loops, draining by gravity, clear yellow urine, not touching the floor. SCD's in place for left leg. Bed alarm on, bed at lowest position, call light within reach. Will endorse care to oncoming shift.
--- NOTE | 2019-06-05 08:00 | NUR ---
Note Pt resting in bed with Trach connected to Mechanical Ventilator. No SOB/resp distress or pain/discomfort noted at this time. AC PICC intact and patent infusing IVF's well at this time. GT feedings infusing well and Shipman catheter intact and draining. Pt non verbal and unresponsive to commands. Pt has generalized edema throughout body. Pt is total body movement assist. Call light within reach. Pt next to nurses' station for close observation for needs and care. Tele unit attached and intact at this time.
[2019-06-05] MEDS: PANTOPRAZOLE SODIUM 40 MG/VIAL (PROTONIX) IVP SCH ×2 (08:59→21:04)
[2019-06-05] MEDS: VALPROIC ACID ORAL SYRUP 250 MG/5 ML UDC GT SCH ×3 (09:00→21:05)
[2019-06-05] MEDS: CHLORHEXIDINE GLUCONATE 15 ML/DOSE, 480 ML MM SCH ×2 (09:00→21:06)
[2019-06-05] MEDS: DOCUSATE SODIUM 100 MG CAPSULE PO SCH ×2 (09:01→21:04)
[2019-06-05] MEDS: MULTIVITS,CA,MINERALS/IRON/FA 1 TABLET GT SCH (09:01)
[2019-06-05] MEDS: ASCORBIC ACID 500 MG TABLET GT SCH (09:01)
[2019-06-05] MEDS: POTASSIUM CHLORIDE 20 MEQ TAB.PRT.SR PO SCH (09:01)
[2019-06-05] MEDS: PHENYTOIN 100 MG/4 ML UDC (DILANTIN) GT SCH ×2 (09:01→21:04)
[2019-06-05] MEDS: LORATADINE 10 MG TABLET GT SCH (09:01)
[2019-06-05] MEDS: CEFEPIME 1 GM in D5W 50 ML IV SCH ×2 (09:08→21:03)
[2019-06-05] MEDS: FLUDROCORTISONE ACETATE 0.1 MG TABLET( FLORINEF) PO SCH ×2 (09:16→21:08)
[2019-06-05] MEDS: CLOTRIMAZOLE/BETAMET DIPROP 15 GM TUBE TP SCH ×2 (09:34→21:05)
[2019-06-05] MEDS: LORazepam 2 MG/ML VIAL IVP PRN (09:34)
[2019-06-05] MEDS: NYSTATIN 15 GM TOPICAL POWDER TP SCH ×2 (09:35→21:05)
[2019-06-05] MEDS: BALSAM PERU/CASTOR OIL 60 GM OINT...G. TP SCH (09:35)
--- NOTE | 2019-06-05 12:00 | NUR ---
Note [employer] instructor Tracy and 5 nursing students did pt's wound care on right and left calves and left heel. Pt has Inter dry cloth on back psoriasis. There is inter dry cloth in groin region on right and left side. Dressing on left side of head was also done and completed at this time. Pt turned q2' and PRN for comfort all shift. Call light within reach.
[2019-06-05] MEDS: FLUCONAZOLE 200 mg/ NS 100 ML IV SCH (12:03)
[2019-06-05] MEDS: INSULIN REGULAR, HUMAN 100 UNITS/ML, 10 ML VIAL (humuLIN R) SUBCUT PRN (12:19)
[2019-06-05] MEDS: FUROSEMIDE 100 MG in D5W 90 ML IV SCH (13:00)
--- NOTE | 2019-06-05 16:00 | NUR ---
Note Hygiene care and comfort care completed on pt by STEEL FITTER and RN at this time. No needs noted at this time. GT feedings infusing well and AC PICC infusing Lasix drip and IVF's/IVPB well at this time. Call light within reach.
--- NOTE | 2019-06-05 18:25 | NUR ---
Note Pt's chux was changed under him at 1800. Shipman catheter intact and draining well. No SOB/resp distress or pain/discomfort noted at this time. Pt was checked on q1' and PRN all shift for needs and care. Mechanical ventilator on and oxygenating pt well all shift. Pt resting well at this time. GT feedings infusing well. Pt's lower extremities elevated on pillow and pt is on air mattress all shift. Tele unit attached and intact all shift. Call light within reach and next to nurses' station all shift.
--- NOTE | 2019-06-05 18:56 | NUR ---
Note [facility] EMT on the floor - report given and discharge packet to give [facility] for continuation of care. Pt stable and has her O2 on at 2L/nc. Pt off the floor via gurney and all/any belongings. Pt's father Reginald by her side off the floor.
--- NOTE | 2019-06-05 19:20 | NUR ---
OPENING NOTES Pt and endorsement received from day shift nurse. Pt is resting in bed with both eyes closed, with visible chest rise and fall with non-labored breathing noted. Pt in on mechanical ventilator with settings: AC:14, TV:500, FiO2:40%, PEEP:5. Pt on IVF of Lasix at 3ml/hr and infusing well on right upper arm PICC. Pt on G-tube feeding of Pivot at 45ml/hr and infusing well. Pt on suprapubic catheter with yellow urine noted in the bag and hanged below bladder level. No moaning or grimacing noted. No signs of acute distress or SOB noted. Seizure pads in place. Head elevated at 50 degrees. Safety precautions in place with 3 side rails up, wheels locked, bed alarm on and in lowest position. Will continue to monitor.
--- NOTE | 2019-06-05 21:10 | NUR ---
MED PASS Assessed for bowel sounds and is active upon auscultation. No residual upon aspiration. All due meds given and pt tolerated well. No signs of acute distress noted. Aspiration, seizure and safety precautions in place. Will continue to monitor.
--- NOTE | 2019-06-05 23:35 | NUR ---
ROUNDS Pt is resting in bed with both eyes closed, with visible chest rise and fall with non-labored breathing noted. No changes on mech vent settings. FLACC scale is 0/10. No moaning or grimacing noted. No signs of acute distress or SOB noted. Suctioning done as needed. Aspiration, seizure and safety precautions in place. Will continue to monitor.
[2019-06-06 00:19] VITALS: BP_SYST 116
[2019-06-06] MEDS: INSULIN REGULAR, HUMAN 100 UNITS/ML, 10 ML VIAL (humuLIN R) SUBCUT PRN ×2 (00:48→06:22)
--- NOTE | 2019-06-06 02:16 | NUR ---
ROUNDS Pt is resting in bed with both eyes closed, with visible chest rise and fall with non-labored breathing noted. No signs of acute distress or SOB noted. IVF and G-tube infusing well. Aspiration, seizure and safety precautions in place. Will continue to monitor.
--- NOTE | 2019-06-06 05:00 | NUR ---
ROUNDS Wound care done on back per wound care guidelines. Pt tolerated well. Suctioning done as needed. No signs of acute distress or SOB noted. Seizure, aspiration and safety precautions in place. Will continue to monitor.
[2019-06-06] MEDS: LEVOTHYROXINE SODIUM 0.075 MG TABLET PO SCH (06:20)
--- NOTE | 2019-06-06 06:49 | NUR ---
CLOSING NOTES Pt is resting in bed with both eyes closed, with visible chest rise and fall with non-labored breathing noted. No changes on mechanical ventilator settings.Pt on IVF and G-tube feeding are infusing well. Kept urine bag hanged below bladder level. No moaning or grimacing noted. No signs of acute distress or SOB noted. Seizure pads in place. Head elevated at 45 degrees. Safety precautions maintained with 3 side rails up, wheels locked, bed alarm on and in lowest position. Will endorse to day shift nurse.
[2019-06-06 08:00] VITALS: BP_SYST 141
--- NOTE | 2019-06-06 08:00 | NUR ---
Initial note- In Bed, open eyes with light stimuli. On vent, tolerating settings well. Oral care done. Multiple wounds noted. Redness and flaky skin noted on the back, thigh, abdominal folds, sacral, buttocks, perineal area. tolerating feeding well. repositioned. will monitor.
[2019-06-06 09:29] VITALS: BP_SYST 141
--- NOTE | 2019-06-06 10:00 | NUR ---
Turned and repositioned. Meds given. tolerating feeding, No residual noted.
[2019-06-06] MEDS: CEFEPIME 1 GM in D5W 50 ML IV SCH (10:13)
[2019-06-06] MEDS: PANTOPRAZOLE SODIUM 40 MG/VIAL (PROTONIX) IVP SCH (10:13)
[2019-06-06] MEDS: PHENYTOIN 100 MG/4 ML UDC (DILANTIN) GT SCH (10:13)
[2019-06-06] MEDS: FUROSEMIDE 100 MG in D5W 90 ML IV SCH (10:13)
[2019-06-06] MEDS: ASCORBIC ACID 500 MG TABLET GT SCH (10:14)
[2019-06-06] MEDS: LORATADINE 10 MG TABLET GT SCH (10:14)
[2019-06-06] MEDS: POTASSIUM CHLORIDE 20 MEQ TAB.PRT.SR PO SCH (10:14)
[2019-06-06] MEDS: DOCUSATE SODIUM 100 MG CAPSULE PO SCH (10:14)
[2019-06-06] MEDS: MULTIVITS,CA,MINERALS/IRON/FA 1 TABLET GT SCH (10:14)
[2019-06-06] MEDS: FLUDROCORTISONE ACETATE 0.1 MG TABLET( FLORINEF) PO SCH (10:14)
[2019-06-06] MEDS: VALPROIC ACID ORAL SYRUP 250 MG/5 ML UDC GT SCH (10:14)
[2019-06-06] MEDS: NYSTATIN 15 GM TOPICAL POWDER TP SCH (10:15)
[2019-06-06] MEDS: CLOTRIMAZOLE/BETAMET DIPROP 15 GM TUBE TP SCH (10:15)
[2019-06-06] MEDS: CHLORHEXIDINE GLUCONATE 15 ML/DOSE, 480 ML MM SCH (10:16)
[2019-06-06] MEDS: BALSAM PERU/CASTOR OIL 60 GM OINT...G. TP SCH (10:16)
--- NOTE | 2019-06-06 10:28 | NUR ---
LATE ENTRY--Discharge Planning: DCP faxed pt referral to [facility] (f [phone] p [phone]) DCP followed up with referral , DCP spoke to Michael llamas will review. Addendum: 06/06/19 at 1110 by Lucia Ho DP DCP arranged transportation with [facility] ([phone]) WILL CALL---waiting for room and DC order. Addendum: 06/06/19 at 1124 by Lucia Ho DP [facility] (f [phone] p [phone]) 30C, [facility] ([phone]) 3:00pm CCT patient packet taken to nurse station,nurse made aware.
[2019-06-06] MEDS: FLUCONAZOLE 200 mg/ NS 100 ML IV SCH (11:43)
--- NOTE | 2019-06-06 14:32 | NUR ---
report given to [facility] staff.
--- NOTE | 2019-06-06 15:30 | NUR ---
pt discharge to [facility] via [facility]. No acute distress noted. Discharge packet given to Ambulance staff. Keep PIcc LIne and Suprapubic catheter. Current meds copied and sent with the packet.
[2019-06-06] MEDS ORDERED: CEFEPIME 1 GM in D5W 50 ML IV SCH (21:00)
== END 2019-06-06 15:30 | DRG 870 ==
LOC: SED 18:08 → SIC 21:41 → STU 06-05 06:56
PROVIDERS: ADMIT Internal Medicine; ATTEND Internal Medicine
PROC: 5A1955Z Respiratory Ventilation, Greater than 96 Consecutive Hours (ICD-10-PCS; principal; 2019-05-31)
PROC: 02HV33Z Insertion of Infusion Device into Superior Vena Cava, Percutaneous Approach (ICD-10-PCS; 2019-06-01)
PROC: B548ZZA Ultrasonography of Superior Vena Cava, Guidance (ICD-10-PCS; 2019-06-01)
PROC: 30233N1 Transfusion of Nonautologous Red Blood Cells into Peripheral Vein, Percutaneous Approach (ICD-10-PCS; 2019-06-03)
DX: A41.9 Sepsis, unspecified organism (principal); E43 Unspecified severe protein-calorie malnutrition; R40.20 Unspecified coma; R65.21 Severe sepsis with septic shock; G93.41 Metabolic encephalopathy; J15.9 Unspecified bacterial pneumonia; E87.1 Hypo-osmolality and hyponatremia; E87.3 Alkalosis; J44.0 Chronic obstructive pulmonary disease with (acute) lower respiratory infection; J96.10 Chronic respiratory failure, unspecified whether with hypoxia or hypercapnia; N39.0 Urinary tract infection, site not specified; N17.9 Acute kidney failure, unspecified; B36.9 Superficial mycosis, unspecified; D64.9 Anemia, unspecified; E86.1 Hypovolemia; F03.90 Unspecified dementia, unspecified severity, without behavioral disturbance, psychotic disturbance, mood disturbance, and anxiety; G40.909 Epilepsy, unspecified, not intractable, without status epilepticus; L89.619 Pressure ulcer of right heel, unspecified stage; L89.629 Pressure ulcer of left heel, unspecified stage; L98.429 Non-pressure chronic ulcer of back with unspecified severity; E66.9 Obesity, unspecified; N18.9 Chronic kidney disease, unspecified; I13.10 Hypertensive heart and chronic kidney disease without heart failure, with stage 1 through stage 4 chronic kidney disease, or unspecified chronic kidney disease; E87.6 Hypokalemia; E88.09 Other disorders of plasma-protein metabolism, not elsewhere classified; Y95 Nosocomial condition; Z86.73 Personal history of transient ischemic attack (TIA), and cerebral infarction without residual deficits; Z93.0 Tracheostomy status; Z93.1 Gastrostomy status; Z68.36 Body mass index [BMI] 36.0-36.9, adult; Z79.899 Other long term (current) drug therapy; Z88.8 Allergy status to other drugs, medicaments and biological substances; Z88.2 Allergy status to sulfonamides
CPT/HCPCS: 36415; 36600; 71045; 80048; 80053; 80061; 80164-TC; 80185-TC; 81000-TC; 82140-TC; 82272; 82533; 82550-TC; 82607; 82803-TC; 82962; 83540-TC; 83550-TC; 83605; 83615-TC; 83735-TC; 83880; 83930-TC; 83935-TC; 84100-TC; 84302-TC; 84439; 84443-TC; 84484; 85007; 85025; 85027; 85044-TC; 85610-TC; 85730-TC; 86886; 86900; 86901; 86920; 87040-TC; 87081; 87086; 93005; 93970; 94002; 94003; 94640; 94760; 96365; 96375; 99291; A6209; C1751; C9113; G0378; J0692; J0885; J1450; J1815; J1940; J2060; J2248; J2543; J2916; J3480; J7030; J7040; J7050; J7060; P9021; P9046

== ENCOUNTER 2019-07-25 15:40 | Inpatient (IN) | payer OTHER ==
[~2019-07-25] VITALS: Ht 172.7 cm; Wt 113.4 kg
[~2019-07-25 15:40] MED LIST: ACET12.55 GT; ACET12.55 PO; APIX2.5T GT; ASCO500S10 GT; CHLO473M5 MM; CLON1TAB12 PO; CRAN1CAP6 GT; DOCU-144 GT; FURO-149 PO; IPRA3AMP9 INH; LORA10TA7 GT; MIDO10TA GT; MULT-1100 GT; OMEP-268 GT; PHEN100O4 GT; SENN8.6T19 PO; SYN50 GT; VALP500S4 GT; ZINC220T4 GT
--- NOTE | 2019-07-25 15:40 | NUR ---
Patient to bed 3 and gown. Side rails up.
--- NOTE | 2019-07-25 15:50 | NUR ---
Dr. Levi at bedside for examination.
[2019-07-25 16:04] VITALS: BP_SYST 108
--- NOTE | 2019-07-25 16:15 | NUR ---
Patient received via ambulance with c/o left heel osteomyelits. Per report, patient has been on vancomycin at [facility] and has been unresponsive to medicaton. Patient trach dependent to ventilator AC 12, tidal volume 500, FiO2 40%, PEEP 5. Patient has a g-tube clamped. Patient also has a suprapubic catheter. Patient remains stable at this with no signs of distress. Safety precautions enforced.
[2019-07-25] MEDS ORDERED: VANCOMYCIN HCL 1,000 MG in NS 250 ML IV ONE (16:30)
[2019-07-25 16:35] LABS: HEMOGLOBIN 8.7 g/dL (14.0-18.0)
[2019-07-25 16:38] LABS: ANION GAP 4 (5-15); CALCIUM 8.5 mg/dL (8.4-11.0); CHLORIDE 100 mmol/L (98-107); CREATININE 0.77 mg/dL (0.55-1.30); GLUCOSE 121 mg/dL (70-99); POTASSIUM 5.2 mmol/L (3.5-5.1); SODIUM SERUM 134 mmol/L (136-145); UREA NITROGEN, BLOOD 38 mg/dL (8-21)
[2019-07-25 16:41] LABS: MEAN CORPUSCULAR HEMOGLOBIN 34 pg (27-31); MEAN CORPUSCULAR HGB CONC 32 % (32-36); MEAN CORPUSCULAR VOLUME 107 fL (79.0-98.0); RED BLOOD CELL COUNT(AUTO) 2.54 MIL/uL (4.2-6.2); RED CELL DISTRIBUTION WIDTH 19.4 % (9.0-15.0); WHITE BLOOD COUNT (AUTO) 13.8 K/uL (4.8-10.8)
[2019-07-25 16:42] LABS: PROTHROMBIN TIME 10.5 SECS (9.5-12.5)
[2019-07-25 16:44] LABS: ALANINE AMINOTRANSFERASE 13 U/L (12-78); ALBUMIN 2.2 g/dL (3.4-4.8); ASPARTATE AMINOTRANSFERASE 28 U/L (10-37); TOTAL BILIRUBIN 0.7 mg/dL (0.0-1.0)
[2019-07-25 16:58] LABS: PLATELET COUNT (AUTO) 381 K/uL (130-430)
[2019-07-25 16:59] LABS: BAND % (MANUAL) 2 % (0-6); BASOPHILS % (MANUAL) 0 % (0-2); EOSINOPHILS % (MANUAL) 0 % (0-7); LYMPHOCYTES % (MANUAL) 25 % (20-46); METAMYELOCYTES % 2 % (0-0); MONOCYTES % (MANUAL) 8 % (0-11)
[2019-07-25] MEDS ORDERED: VANCOMYCIN HCL 1000 MG/VIAL IV ONE (17:02)
[2019-07-25] MEDS ORDERED: SODIUM POLYSTYRENE SULFONATE 15 GM/60 ML UDBTL GT ONE (17:15)
--- NOTE | 2019-07-25 17:27 | NUR ---
RECEIVED ADMISSION ORDERS FROM DR EUGENE, CALLED FOR BED PLACEMENT AND UNABLE TO ACCEPT PT AT THIS TIME
--- NOTE | 2019-07-25 17:30 | NUR ---
Patient remains in stable condition. No signs of distress noted.
[2019-07-25] MEDS ORDERED: FER300L GT (18:23)
[2019-07-25] MEDS ORDERED: EPOE20005 SQ (18:23)
[2019-07-25] MEDS ORDERED: TYLL650 GT (18:23)
[2019-07-25] MEDS ORDERED: SODIUM TABLET GT (18:23)
--- NOTE | 2019-07-25 18:23 | NUR ---
Medication reconciliation completed with information provided by ADITYA NOLAN. Any prior medication reconciliation on file was reviewed and corrected.
--- NOTE | 2019-07-25 19:47 | NUR ---
ADMIT NOTE Received pt from ER to the floor with a diagnosis of CELLILITIS OF HEEL. Admission process initiated. patient oriented to pain management, safety and call light-NON VERBAL, CONFUSED.
--- NOTE | 2019-07-25 19:47 | NUR ---
Transfer to Tele via ACLS protocol. Licensed nurse present. IV present no signs or symptoms of infiltration.
[2019-07-25 20:00] VITALS: BP_SYST 106
--- NOTE | 2019-07-25 20:23 | NUR ---
Dr. White rounds: Dr. White at bedside to assess patient. MD examined patient's left heel wound, stated that patient will possibly require amputation of left lower extremity. MD to input orders, will follow-up.
[2019-07-25] MEDS ORDERED: SENNOSIDES 8.6 MG TABLET PO PRN (20:45)
[2019-07-25] MEDS ORDERED: DEXTROSE 50% JECT 50 ML DISP.SYRIN IVP PRN (21:00)
[2019-07-25 21:15] VITALS: BP_SYST 106
[2019-07-25] MEDS ORDERED: ACETAMINOPHEN 650 MG/20.3 ML UDC PO PRN (21:30)
--- NOTE | 2019-07-25 21:35 | NUR ---
Dr. White: Spoke with Dr. White over phone. was informed that [facility] called and notified this RN that ordered bone scan will not be done until Sunday. Per MD, bone scan on Sunday is fine. also made aware that patient has a suprapubic catheter. Order received to cancel Shipman catheter insertion and to collect UA/UC from [facility]. Verified by read-back, RN to input.
[2019-07-25] MEDS: FUROSEMIDE 20 MG TABLET GT SCH (21:46)
[2019-07-25] MEDS: ENOXAPARIN SODIUM 30 MG/0.3 ML SYRINGE SUBCUT SCH (21:48)
[2019-07-25] MEDS: NACL 0.9% 1,000 ML IV SCH (21:49)
[2019-07-25] MEDS: PHENYTOIN 100 MG/4 ML UDC (DILANTIN) GT SCH (21:50)
--- NOTE | 2019-07-25 21:55 | NUR ---
Medications Patient resting in bed, educated patient on 2100 scheduled medications uses and potential side effects, patient unable to verbalized understanding due to impaired cognition, 0mL of residual noted, administered scheduled medications via G-tube, safety, fall and seizure precautions in place, call light with patient, will continue to monitor.
[2019-07-25] MEDS ORDERED: PIPERACILLIN/TAZOBACTAM 3.375 GM/VIAL (ZOSYN) IV ONE (21:59)
[2019-07-25 22:00] VITALS: BP_SYST 101
[2019-07-25] MEDS ORDERED: SODIUM POLYSTYRENE SULFONATE 15 GM/60 ML UDBTL PO SCH (22:00)
[2019-07-25] MEDS ORDERED: VALPROIC ACID ORAL SYRUP 250 MG/5 ML UDC GT SCH (22:00)
--- NOTE | 2019-07-25 22:09 | NUR ---
CONSULTATION PAGED/CALLED Reason for Consultation: VENT DEP Person Who was Notified: ANDREEA Consulting Physician: DOREEN LINARES Documentation Specialist Specialty: Ordering Physician: JABIER
[2019-07-25] MEDS: PIPERACILLIN/TAZO 3.375/DEX-IS 50 ML IV SCH (22:23)
--- NOTE | 2019-07-25 22:32 | NUR ---
CONSULTATION PAGED/CALLED Reason for Consultation: POSS. BKA Person Who was Notified: CURT Consulting Physician: DANIELA Web Engineer Specialty: Ordering Physician: JABIER
[2019-07-26] VITALS (7 sets, daily range): BP systolic 92–106
--- NOTE | 2019-07-26 00:42 | NUR ---
Incontinence care: Patient had a large bowel movement. Incontinence care rendered by this RN and GRADY Núñez. Patient clean and dry, turned and repositioned. Call light is with patient. Will continue to monitor.
--- NOTE | 2019-07-26 04:45 | NUR ---
Incontinence care Patient had a large bowel movement. Incontinence care rendered by RN and GRADY Núñez. Patient clean and dry, turned and repositioned, call light is with patient, will continue to monitor.
[2019-07-26] MEDS: PIPERACILLIN/TAZO 3.375/DEX-IS 50 ML IV SCH ×3 (04:53→21:15)
[2019-07-26 04:57] LABS: BILIRUBIN,URINE NEGATIVE (NEGATIVE); BLOOD, URINE 3+ (NEGATIVE); CLARITY/URINE CLEAR (CLEAR); COLOR,URINE YELLOW (YELLOW); GLUCOSE,URINE NEGATIVE (NEGATIVE); KETONES,URINE NEGATIVE (NEGATIVE); LEUKOCYTE ESTERASE ,URINE 2+ (NEGATIVE); NITRITE, URINE POSITIVE (NEGATIVE); PH,URINE 8.5 (5.0-8.0); PROTEIN URINE 1+ (NEGATIVE)
[2019-07-26 05:02] LABS: WBC,URINE 20-50 /HPF (0-3)
[2019-07-26 05:03] LABS: BACTERIA,URINE MANY /HPF (None Seen)
[2019-07-26 06:37] LABS: BASOPHILS # (AUTO) 0.1 K/uL (0.0-0.2); BASOPHILS % (AUTO) 0.8 % (0.0-2.0); EOSINOPHILS # (AUTO) 0.2 K/uL (0.0-0.4); EOSINOPHILS % (AUTO) 2.3 % (0.0-4.0); HEMATOCRIT 24.8 % (36-54); HEMOGLOBIN 8.2 g/dL (14.0-18.0); LYMPHOCYTES # (AUTO) 1.4 K/uL (1.0-5.5); LYMPHOCYTES % (AUTO) 16.3 % (20.5-51.5); MEAN CORPUSCULAR HEMOGLOBIN 35 pg (27-31); MEAN CORPUSCULAR HGB CONC 33 % (32-36); MEAN CORPUSCULAR VOLUME 106 fL (79.0-98.0); MONOCYTES # (AUTO) 0.9 K/uL (0.0-1.0); MONOCYTES % (AUTO) 9.9 % (1.7-9.3); NEUTROPHILS # (AUTO) 6.2 K/uL (1.8-7.7); NEUTROPHILS % (AUTO) 70.7 % (40.0-70.0); PLATELET COUNT (AUTO) 269 K/uL (130-430); RED BLOOD CELL COUNT(AUTO) 2.34 MIL/uL (4.2-6.2); RED CELL DISTRIBUTION WIDTH 19.5 % (9.0-15.0); RETICULOCYTE COUNT 4.3 % (0.5-1.5); WHITE BLOOD COUNT (AUTO) 8.8 K/uL (4.8-10.8)
--- NOTE | 2019-07-26 06:43 | NUR ---
Closing Note Patient resting in bed, eyes closed, tracheostomy ventilator support, vent settings TV 500, FiO2 40%, AC 12, PEEP 5, right upper arm PICC line infusing fluids per MD order, tube feeding glucerna 1.5 at 70mL/hr, 5mL residual, HOB elevated to 30 degrees, suprapubic catheter in place draining to gravity, seizure precautions in place, safety, fall and aspiration precautions in place, call light with patient, will endorse care to day shift RN.
[2019-07-26 07:19] LABS: ALANINE AMINOTRANSFERASE 12 U/L (12-78); ALBUMIN 1.8 g/dL (3.4-4.8); ANION GAP 6 (5-15); ASPARTATE AMINOTRANSFERASE 20 U/L (10-37); CALCIUM 7.9 mg/dL (8.4-11.0); CHLORIDE 106 mmol/L (98-107); CREATININE 0.91 mg/dL (0.55-1.30); FREE T4 (FREE THYROXINE) 0.8 ng/dl (0.8-1.5); GLUCOSE 161 mg/dL (70-99); PHOSPHORUS 4.9 mg/dL (2.7-4.5); POTASSIUM 4.4 mmol/L (3.5-5.1); SODIUM SERUM 142 mmol/L (136-145); THYROID STIMULATING HORMONE 7.35 uIu/mL (0.36-3.74); TOTAL BILIRUBIN 0.6 mg/dL (0.0-1.0); UREA NITROGEN, BLOOD 35 mg/dL (8-21)
[2019-07-26 07:21] LABS: TOTAL IRON BIND. CAPACITY 159 ug/dL (250-450)
[2019-07-26] MEDS ORDERED: SENNOSIDES 8.6 MG TABLET GT PRN (07:59)
--- NOTE | 2019-07-26 08:00 | NUR ---
RN INITIAL NOTES RECEIVED PATIENT IN BED WITH EYES OPEN BUT NON VERBAL , WITH TRACT VENTILATOR SUPPORT , VENT SETTING TV 500, FiO2 40%, 1C 12, PEEP 5 , RT UPPER ARM PICC LINE X 2 LUMEN INFUSING IVF ORDERED, HOB ELEVATED TO 30 DEGREES, NO SIGN OF ASPIRATION , GTUBEFEEDING TOLERATED , SUPRAPUBIC CATH INT ACT DRAINING , BOTH HEEZ FLOATED TO PILLOW , WITH BOTH UPPER AND LOW, WILL CONT CARE , BOTH LOWER EXTREMETIES SWOLLEN, WILL CONT CARE AND MEDICATION ORDERED
[2019-07-26 09:00] LABS: CHOLESTEROL 189 mg/dL (<200); HDL CHOLESTEROL 28 mg/dL (>45); LDL CHOLESTEROL 119 mg/dL (<100); TRIGLYCERIDES 262 mg/dL (30-150)
[2019-07-26] MEDS: FUROSEMIDE 20 MG TABLET GT SCH ×2 (09:00→21:00)
[2019-07-26] MEDS ORDERED: ACETAMINOPHEN 650 MG/20.3 ML UDC GT SCH (09:00)
[2019-07-26] MEDS: DOCUSATE SODIUM 100 MG/10 ML UDC GT SCH (09:50)
[2019-07-26] MEDS: FERROUS SULFATE 300 MG/5 ML UDC GT SCH (09:50)
[2019-07-26] MEDS: PHENYTOIN 100 MG/4 ML UDC (DILANTIN) GT SCH ×2 (09:50→21:11)
[2019-07-26] MEDS: LANSOPRAZOLE 30 MG CAPSULE.DR GT SCH (09:51)
--- NOTE | 2019-07-26 10:00 | NUR ---
ROUNDS PATIENT INTERMITTENTLY AWAKE REPOSITIONED AND LOWER LEGS DOPPLER DONE , CONT WITH IVF AND GTUBE FEEDING ORDERED
--- NOTE | 2019-07-26 11:14 | NUR ---
Nutrition Update Momo Scale 11 noted. Pt admitted for osteomyelitis of heel. Diet: Glucerna 1.5 at 70 ml/hr, Free Water Flush: 100 ML Q6H via GT BMI: 33.8 kg/m2 RD to follow per nutrition care standards.
--- NOTE | 2019-07-26 12:00 | NUR ---
DR EUGENE ROUNDS DR EUGENE CAME INFORMED PATIENT SKIN IN THE BACK CONDITION , INFORMED THAT PATIENT CONDITION SEEMS FUNGAL IN NATURE , DR EUGENE SAID THAT WHY TO WAIT FOR DR MANCINI FOR FURTHER EVAL AND MGT . AT THIS TIME CONT CARE Addendum: 07/27/19 at 1030 by Penny Bradley RN LATE ENTRY FOR 07/26/19 DR EUGENE FERROUS SO4 PER GTUBE WAS GIVEN ALREADY THIS AM AND DR EUGENE SAID THAT ITS OK WILL CONT WITH FERRLECIT IV THIS PM.
[2019-07-26] MEDS ORDERED: ERGOCALCIFEROL 8000 UNITS/ML ORAL SOLUTION, 60 ML BOTTLE GT ONE (13:00)
[2019-07-26] MEDS ORDERED: EPOETIN ALFA 10,000 UNITS/ML VIAL SUBCUT ONE (13:00)
--- NOTE | 2019-07-26 14:00 | NUR ---
ROUNDS WILL CONT CARE , GTUBE FEEDING FLUSHING DONE , WOUND DRESSING STILL INTACT AT THIS TIME, DRESSING WILL BE DONE NEXT TONIGHT ,
[2019-07-26] MEDS: VALPROIC ACID ORAL SYRUP 250 MG/5 ML UDC GT SCH ×2 (15:51→21:12)
[2019-07-26] MEDS: SOD FERRIC GLUC COMPLEX/SUC 125 MG in NS 100 ML IV SCH (15:54)
--- NOTE | 2019-07-26 16:38 | NUR ---
ROUNDS SLEEPING AT THIS TIME
--- NOTE | 2019-07-26 18:39 | NUR ---
ENDORSEMENT WILL ENDORSE TO NEXT SHIFT CONT CARE , WITH GTUBE FEEDING , TOLERATING , IVF INFUSING ORDERED, SUPRAPUBIC CATH INTACT DRAINING , WOUND DRESSING TO BE DONE THIS WET PLANT OPERATOR , AWAITING STILL FOR DR MANCINI TO COME BY AND TO REFER SKIN CONDITION ON THE BACK , REPOSITIONED AND KEEP HEELS FLOAT, WITH MECH TRACT INTACT AND SATING 100%,NEEDS ATTENDED
--- NOTE | 2019-07-26 19:50 | NUR ---
Opening Note Received report from alie RN, patient resting in bed, awake, A&Ox1, tracheostomy ventilator support, vent settings TV 500, FiO2 40%, AC 12, PEEP 5, right upper arm PICC line infusing fluids per MD order, tube feeding Glucerna 1.5 at 70mL/hr, 5mL residual, HOB elevated to 30 degrees, suprapubic catheter in place draining charmaine to gravity, seizure precautions in place, safety, fall and aspiration precautions in place, call light with patient, will continue to monitor.
--- NOTE | 2019-07-26 20:02 | NUR ---
Dr. Anaya rounds: MD at bedside to assess patient, examined wounds to patient's left lower extremity. No verbal orders given. Will follow-up for any further orders. Addendum: 07/26/19 at 2026 by Suraj Love RN at nurses station, order given for CT angiogram w/wo contrast for osteomyelitis of left heel. Verified by read-back, RN to input.
[2019-07-26] MEDS: NACL 0.9% 1,000 ML IV SCH (21:14)
--- NOTE | 2019-07-26 21:15 | NUR ---
Medications Patient resting in bed, awake, educated patient on 2100 scheduled medications uses and potential side effects, patient unable to verbalized understanding due to cognitive impairment, 5mL of residual noted, administered scheduled medications via G-tube, patient tolerated well, safety, fall and seizure precautions in place, call light with patient, will continue to monitor.
[2019-07-26] MEDS: ENOXAPARIN SODIUM 30 MG/0.3 ML SYRINGE SUBCUT SCH (21:17)
--- NOTE | 2019-07-26 22:34 | NUR ---
Call for consent: Consent required from patient's conservator Francesca Bishop for ordered CT angiogram of lower extremities w/wo contrast. Called conservator's number as listed on face sheet [phone]. No answer, voicemail left to call hospital back, provided number to [facility]. Called emergency number as provided by conservator's voicemail greeting [phone], unable to leave voicemail due to busy tone after several minutes of ringing tone. Will attempt to reach [facility] again in the morning.
--- NOTE | 2019-07-27 00:12 | NUR ---
Incontinence care Patient had a small bowel movement. Incontinence care rendered by RN and Braxton RASMUSSEN. Patient clean and dry, turned and repositioned, call light is with patient, will continue to monitor.
[2019-07-27 00:25] VITALS: BP_SYST 106
--- NOTE | 2019-07-27 02:40 | NUR ---
RN Rounds Patient resting in bed, eyes closed, tolerating tracheostomy ventilator support, vent settings TV 500, FiO2 40%, AC 12, PEEP 5, PICC line infusing fluids per MD order, HOB elevated to 30 degrees, suprapubic catheter in place draining charmaine to gravity, safety, fall and aspiration precautions in place, seizure precautions in place, call light with patient, will continue to monitor.
[2019-07-27] MEDS: PIPERACILLIN/TAZO 3.375/DEX-IS 50 ML IV SCH ×3 (04:13→22:03)
--- NOTE | 2019-07-27 05:10 | NUR ---
RN Rounds Patient resting in bed, awake, cleansed and dressed wounds to bilateral lower extremities and head, patient tolerated well, call light with patient, will continue to monitor.
--- NOTE | 2019-07-27 05:45 | NUR ---
Consultation Paged Reason for Consultation: Osteomyelitis Heel Was consult called: Y Person who was notified: Zahraa Consulting Physician: Dr. Ryan Mail Forwarding System Markup Clerk Ordering Physician: Dr. Guerrier Addendum: 07/27/19 at 0548 by Diya Mercado MD/ Ordering Physician: Dr. White
[2019-07-27] MEDS: VALPROIC ACID ORAL SYRUP 250 MG/5 ML UDC GT SCH ×3 (05:52→22:09)
--- NOTE | 2019-07-27 06:11 | NUR ---
Call for consent: 2nd attempt to contact patient's conservator Francesca Bishop. Consent required from patient's conservator for ordered CT angiogram of lower extremities w/wo contrast. No answer from conservator's number per face sheet [phone]. No answer from emergency number per conservator's voicemail greeting [phone]. Will endorse to alie ALEXANDER.
--- NOTE | 2019-07-27 06:21 | NUR ---
Closing Note Patient resting in bed, eyes closed, tracheostomy ventilator support, vent settings TV 500, FiO2 40%, AC 12, PEEP 5, right upper arm PICC line infusing fluids per MD order, tube feeding Glucerna 1.5 at 70mL/hr, 0mL residual notes, HOB elevated to 30 degrees, suprapubic catheter in place draining charmaine to gravity, seizure precautions in place, safety, fall and aspiration precautions in place, call light with patient, will endorse care to day shift RN.
[2019-07-27 07:33] LABS: BASOPHILS # (AUTO) 0.1 K/uL (0.0-0.2); BASOPHILS % (AUTO) 0.7 % (0.0-2.0); EOSINOPHILS # (AUTO) 0.2 K/uL (0.0-0.4); EOSINOPHILS % (AUTO) 2.2 % (0.0-4.0); HEMOGLOBIN 8.6 g/dL (14.0-18.0); LYMPHOCYTES # (AUTO) 2.1 K/uL (1.0-5.5); LYMPHOCYTES % (AUTO) 20.6 % (20.5-51.5); MEAN CORPUSCULAR HEMOGLOBIN 35 pg (27-31); MEAN CORPUSCULAR HGB CONC 33 % (32-36); MEAN CORPUSCULAR VOLUME 108 fL (79.0-98.0); MONOCYTES # (AUTO) 0.9 K/uL (0.0-1.0); MONOCYTES % (AUTO) 8.9 % (1.7-9.3); NEUTROPHILS # (AUTO) 6.8 K/uL (1.8-7.7); NEUTROPHILS % (AUTO) 67.6 % (40.0-70.0); PLATELET COUNT (AUTO) 237 K/uL (130-430); RED BLOOD CELL COUNT(AUTO) 2.42 MIL/uL (4.2-6.2); RED CELL DISTRIBUTION WIDTH 19.6 % (9.0-15.0); WHITE BLOOD COUNT (AUTO) 10.1 K/uL (4.8-10.8)
--- NOTE | 2019-07-27 08:00 | NUR ---
RN INITIAL NOTES RECEIVED PATIENT IN BED NON VERBAL WITH TRACH VENT SUPPOR VENT SETTING TV 500, FI02 40%, AC 12 ,PEEP 5,WITH RT UPPER PICC LINE X 2 LUMEN INFUSING IV ORDERED, GLUCERNA 1.2 AT 70 ML/HR TOLERATING WELL NO RESIDUAL , HOB ELEVATED WITH 30 DEGREE , NO ASPIRATION NOTED , WITH SUPRAPUBIC CATH INTACT DRAINING TO BSB NO HEMATURIA, WITH UPPER AND LOWER EXTREMETIES SWELLING, BOTH HEELS FLOATED WOUND DRESSING INTACT DRESSING DONE THIS 0500 BY BOOK SEWER , WILL CONT CARE AND FERROUS SO4 ON HOLD FOR TILL PATIENT ON FERLICIT IV , DR EUGENE CAME INFORMED ABOUT PATIENT CONDITION, WILL FOLLOW UP WITH DR MANCINI CONSULT WITH SKIN CONDITION
[2019-07-27 08:16] LABS: ALANINE AMINOTRANSFERASE 15 U/L (12-78); ALBUMIN 1.8 g/dL (3.4-4.8); ANION GAP 6 (5-15); ASPARTATE AMINOTRANSFERASE 24 U/L (10-37); CALCIUM 8.6 mg/dL (8.4-11.0); CHLORIDE 107 mmol/L (98-107); CREATININE 0.85 mg/dL (0.55-1.30); GLUCOSE 169 mg/dL (70-99); POTASSIUM 3.6 mmol/L (3.5-5.1); SODIUM SERUM 144 mmol/L (136-145); TOTAL BILIRUBIN 0.6 mg/dL (0.0-1.0); UREA NITROGEN, BLOOD 35 mg/dL (8-21)
[2019-07-27] MEDS: FUROSEMIDE 20 MG TABLET GT SCH ×2 (09:00→22:09)
[2019-07-27] MEDS: PHENYTOIN 100 MG/4 ML UDC (DILANTIN) GT SCH ×2 (09:40→22:02)
[2019-07-27] MEDS: DOCUSATE SODIUM 100 MG/10 ML UDC GT SCH (09:40)
[2019-07-27] MEDS: LANSOPRAZOLE 30 MG CAPSULE.DR GT SCH (09:41)
[2019-07-27] MEDS: ERGOCALCIFEROL 8000 UNITS/ML ORAL SOLUTION, 60 ML BOTTLE GT SCH (09:42)
[2019-07-27] MEDS: FERROUS SULFATE 300 MG/5 ML UDC GT SCH ×2 (09:42→09:44)
--- NOTE | 2019-07-27 10:00 | NUR ---
ROUNDS PATIENT HOB MAINTAINED ON 30 DEGREE ANGLE,NO ASPIRATION TOLERATED AM MEDS , DR EUGENE SEEN PATIENT AND CONT WITH PLAN OF CARE
[2019-07-27] MEDS ORDERED: POTASSIUM CHLORIDE 20 MEQ/PKT PACKET PO ONE (10:30)
--- NOTE | 2019-07-27 10:30 | NUR ---
CALLED CONSERVATOR LEFT MESSAGE TO CONSERVATOR NO ANSWER
[2019-07-27 12:15] VITALS: BP_SYST 126
--- NOTE | 2019-07-27 13:00 | NUR ---
DR MCNEIL VISIT SRGEON DR MCNEIL HERE INFORMED THAT NO CONSENT OF THE CTA ORDERED D/T NO RESPONSE FROM CONSERVATOR
[2019-07-27] MEDS ORDERED: LINEZOLID 300 ML IV ONE (14:00)
--- NOTE | 2019-07-27 15:00 | NUR ---
LEFT MESSAGE TO CONSERVATOR CARYN DORMAN STILL NO RETURN CALL BACK ONCE WITH CONSENT WILL INFORM DR MCNEIL
[2019-07-27] MEDS: SOD FERRIC GLUC COMPLEX/SUC 125 MG in NS 100 ML IV SCH (15:15)
--- NOTE | 2019-07-27 15:44 | NUR ---
Dietitian Recommendations *Continue Glucerna 1.2 at 70ml/hr and 100ml FWF Q6H *Provides 2016kcal, 101gPro, and 1752ml of free water *Meets 92%kcal and 112% of lower end of estimated protein needs *Caden BID to aid with wound healing Please see Nutrition Assessment for further details. LT, RD
--- NOTE | 2019-07-27 16:00 | NUR ---
DR LIVE richter informed about skin condition in the back with order to apply hydrocortisone to affected back and buttocks
[2019-07-27] MEDS ORDERED: HYDROCORTISONE 1%, 28.35 GM TOPICAL CREAM TP PRN (16:15)
[2019-07-27 16:30] VITALS: BP_SYST 133
--- NOTE | 2019-07-27 18:28 | NUR ---
ENDORSEMENT WILL ENDORSE TO NEXT SHIFT CONT CARE , WITH PICC LINE X 2 LUMEN INFUSING UVF ORDERED , TOLERATING GTUBE FLUSHED WITH WATER AND CONT WITH PRN SUCTIONING VIA TRACH , WOUND DRESSING INTCAT AND WILL APPLY HYDROCORTISONE TO BUTTOCKS AND LOWER BACK ONCE MEDS AVAIL, WITH SUPRAPUBIC CATH INTACT AND NO HEMATURIA , WILL FOLLOW UP WITH CTA CONSENT AND POSSIBLE SURGERY ONCE WITH CONSENT FROM CONSERVATOR , NO FACIAL GRIMACE NOTED ,NO SEIZURE NOTED THE WHOLE SHIFT BUT WITH EPISODES OF MILD INVOLUNTARY MOVEMENT OF THE HEAND , KEEP BOTH HEELZ A FLOAT
--- NOTE | 2019-07-27 19:20 | NUR ---
OPENING NOTES Pt and endorsement received from day shift nurse. Pt is resting in bed with both eyes closed, with visible chest rise and fall with non-labored breathing noted. Pt on mechanical vent with settings: AC:12, TV:500, FiO2:40%, Peep:5. Pt on IVF with NS at 30ml/hr and infusing well on right upper arm PICC. Pt on G-tube feeding with Glucerna 1.5 at 70ml/hr and infusing well. Pt on ahuja catheter with yellow urine noted in the bag and hanged below bladder level. No moaning or grimacing noted. No signs of acute distress or SOB noted. Safety precautions in place with 3 side rails up, wheels locked, bed alarm on and in lowest level. Will continue to monitor.
[2019-07-27] MEDS: HYDROCORTISONE 1%, 28.35 GM TOPICAL CREAM TP SCH (21:00)
[2019-07-27] MEDS: NACL 0.9% 1,000 ML IV SCH ×2 (21:30→22:28)
[2019-07-27 21:55] VITALS: BP_SYST 129
[2019-07-27] MEDS: INSULIN LISPRO SLIDING SCALE 100 UNITS/ML VIAL (humaLOG) SUBCUT PRN (22:03)
[2019-07-27] MEDS: ENOXAPARIN SODIUM 30 MG/0.3 ML SYRINGE SUBCUT SCH (22:10)
--- NOTE | 2019-07-27 22:10 | NUR ---
MED PASS G-tube feeding was stopped at 2100. All G-tube and IV due meds given and pt tolerating well. Aspiration precaution maintained with head elevated at 45 degrees. Will resume feeding after one hour. No signs of acute distress noted. Safety precautions in place and call light with pt. Will continue to monitor.
--- NOTE | 2019-07-27 23:20 | NUR ---
ROUNDS Pt is resting in bed with both eyes closed, with visible chest rise and fall with non-labored breathing noted. G-tube feeding resumed. No moaning or grimacing and no signs of acute distress noted. IVF infusing well. Safety precautions in place and call light with pt. Will continue to monitor.
[2019-07-27] MEDS: LINEZOLID 300 ML IV SCH (23:21)
--- NOTE | 2019-07-28 02:39 | NUR ---
ROUNDS Pt is resting in bed with both eyes closed, with visible chest rise and fall with non-labored breathing noted. Sometimes opens his eyes but non-verbal. No signs of acute distress or SOB noted. IVF and tube feeding are infusing well. No needs at this time. Safety precautions in place and call light with pt. Will continue to monitor.
[2019-07-28] MEDS: PIPERACILLIN/TAZO 3.375/DEX-IS 50 ML IV SCH ×3 (05:05→22:29)
[2019-07-28] MEDS: VALPROIC ACID ORAL SYRUP 250 MG/5 ML UDC GT SCH ×3 (05:08→22:31)
--- NOTE | 2019-07-28 05:10 | NUR ---
ROUNDS Wound care done and pt tolerated well. No signs of acute distress noted. Safety precautions in place and call light with pt. Will continue to monitor.
[2019-07-28] MEDS: INSULIN LISPRO SLIDING SCALE 100 UNITS/ML VIAL (humaLOG) SUBCUT PRN (05:58)
--- NOTE | 2019-07-28 06:43 | NUR ---
CLOSING NOTES Pt is resting in bed with both eyes closed, with visible chest rise and fall with non-labored breathing noted. IVF and tube feeding are infusing well. No changes in [facility] vent settings. Kept ahuja bag hanged below bladder level. No moaning or grimacing noted. No signs of acute distress or SOB noted. All needs attended throughout the shift. Aspiration precautions maintained with head elevated at 45 degrees. Seizure pads in place and safety precautions maintained with 3 side rails up, wheels locked, bed alarm on and in lowest level. Call light with pt. Will endorse to days shift nurse. Addendum: 07/28/19 at 0650 by Deja Chilel RN Also called conservator Francesca Dario at 0600 to obtain consent but no one answered, left a voicemail. Called again at 0630 but no one is still answering, will endorse to day shift nurse.
[2019-07-28 07:32] LABS: HEMATOCRIT 22.8 % (36-54); HEMOGLOBIN 7.4 g/dL (14.0-18.0); MEAN CORPUSCULAR HEMOGLOBIN 35 pg (27-31); MEAN CORPUSCULAR HGB CONC 32 % (32-36); MEAN CORPUSCULAR VOLUME 108 fL (79.0-98.0); PLATELET COUNT (AUTO) 212 K/uL (130-430); RED BLOOD CELL COUNT(AUTO) 2.12 MIL/uL (4.2-6.2); RED CELL DISTRIBUTION WIDTH 19.9 % (9.0-15.0); WHITE BLOOD COUNT (AUTO) 12.9 K/uL (4.8-10.8)
[2019-07-28 07:41] LABS: ANION GAP 5 (5-15); CALCIUM 8.2 mg/dL (8.4-11.0); CHLORIDE 107 mmol/L (98-107); CREATININE 0.98 mg/dL (0.55-1.30); GLUCOSE 133 mg/dL (70-99); POTASSIUM 3.9 mmol/L (3.5-5.1); SODIUM SERUM 142 mmol/L (136-145); UREA NITROGEN, BLOOD 32 mg/dL (8-21)
[2019-07-28 08:00] VITALS: BP_SYST 112
--- NOTE | 2019-07-28 08:00 | NUR ---
Note Pt resting in bed with mechanical ventilation. Pt has AC PICC intact and patent infusing IVF's well. GT site patent and intact infusing feedings. Suprapubic catheter intact and draining. Pt's lower extremities elevated on pillows. Pt has dressings on lower extremities done at 05am. Call light within reach.
[2019-07-28 08:42] LABS: BAND % (MANUAL) 8 % (0-6); BASOPHILS % (MANUAL) 0 % (0-2); EOSINOPHILS % (MANUAL) 5 % (0-7); LYMPHOCYTES % (MANUAL) 48 % (20-46); MONOCYTES % (MANUAL) 4 % (0-11); MYELOCYTES % 6 % (0-0)
[2019-07-28 08:43] LABS: WBC MORPHOLOGY TOXIC VACUOLATION
[2019-07-28] MEDS: LANSOPRAZOLE 30 MG CAPSULE.DR GT SCH (09:02)
[2019-07-28] MEDS: FUROSEMIDE 20 MG TABLET GT SCH ×2 (09:03→22:31)
[2019-07-28] MEDS: DOCUSATE SODIUM 100 MG/10 ML UDC GT SCH (09:03)
[2019-07-28] MEDS: POTASSIUM CHLORIDE 20 MEQ/PKT PACKET PO SCH (09:03)
[2019-07-28] MEDS: PHENYTOIN 100 MG/4 ML UDC (DILANTIN) GT SCH ×2 (09:03→22:30)
[2019-07-28] MEDS: HYDROCORTISONE 1%, 28.35 GM TOPICAL CREAM TP SCH ×2 (09:04→22:32)
[2019-07-28] MEDS: ERGOCALCIFEROL 8000 UNITS/ML ORAL SOLUTION, 60 ML BOTTLE GT SCH (09:05)
--- NOTE | 2019-07-28 10:15 | NUR ---
RT NOTES Transported pt to Nuclear med, bagging w/ 100% O2 via ambubag to trach tube. Pt. was back on vent once in nuclear med. @1105 Transported pt back to Room, bagging w/ 100% O2 via ambubag to trach tube, and back on vent w/ same settings once in the room. T.T remained secure/patent. No distress noted.
[2019-07-28] MEDS: LINEZOLID 300 ML IV SCH (11:20)
--- NOTE | 2019-07-28 12:00 | NUR ---
Note Pt off the floor at 1015am via gurney to Nuclear Medicine for scan of lower extremities. Pt back to floor at 11am. RT and RN went with pt from the floor to Radiology dept. Pt stable. IVF's and GT feedings were clamped and then restarted once pt back to room/floor. Dr Anaya came to floor and requested that CT angiogram on lower extremities be done today. CT dept called and requested that pt have his CT scan of lower extremities per Dr Anaya's order. Tech stated they will do it today.
[2019-07-28 12:35] VITALS: BP_SYST 138
[2019-07-28] MEDS: SOD FERRIC GLUC COMPLEX/SUC 125 MG in NS 100 ML IV SCH (14:29)
--- NOTE | 2019-07-28 15:40 | NUR ---
Hemo consult called: for Dr. Mari, regarding anemia, ordered by Dr. White, spoke with
--- NOTE | 2019-07-28 16:00 | NUR ---
WOUND EVALUATION: Late note for 1600 secondary to patient care. Wound Consult received from Dr. White. Thank you, Dr. White, for the consult. Patient received in a [place] Bed with an IsoFlex CHILO mattress with low air-loss therapy initiated, obtunded. Patient unable to turn in bed independently. Momo Score is an 11. Past Medical History: Tracheostomy, persistent vegetative state, Chronic Respiratory Failure, COPD, Obesity, chronic ventilator dependence, Dysphagia, G-tube feeding, Seizure disorder, CVA, Hypothyroidism, Hypertension. Recent Labs: WBC 12.9, RBC 2.12, hemoglobin 7.4, hematocrit 22.8, BUN 32, creatinine 0.98, glucose 133, calcium 8.2, albumin 1.8. Microbiology: Wound culture results positive for Escherichia coli, Proteus Mirabilis (MDRO), Viridans Streptococcus group. Urine culture results negative. MRSA screen results negative. Blood culture results 2 in progress. 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 Intrinsic factors that delay wound healing: Chronic Respiratory Failure, COPD, chronic ventilator dependence, Dysphagia, G-tube feeding. Extrinsic factors that delay wound healing: Decreased mobility. Wound Assessment: 1. Left Heel: Arterial ulcer per [facility] staff, present on admission. Wound bed has 40% yellow slough, 30% black slough, 30% pink tissue. Foul odor, scant yellow purulent and sanguineous drainage. Periwound intact. Wound measures 10.0 cm x 8.3 cm. Recommend: Cleanse wound with normal saline. Apply moisture barrier cream to diana-wound. Apply Venelex ointment to wound bed. Cover with foam dressing. Wrap with jody wrap. Perform wound care daily, and as needed for dressing soiling or dislodgement. 2. Left lateral malleolus: Arterial ulcer per [facility] staff, present on admission. Wound bed has 100% brown eschar. No odor, no drainage. Periwound intact. Dry, stable. Wound measures 0.5 cm x 0.4 cm. Recommend: Thayer site with Betadine daily. No dressing needed. 3. Left distal posterior lower extremity, superior to calcaneus: Arterial ulcer, present on admission. Site has 45% yellow slough, 40% pink tissue, 10% black slough, 5% red tissue. No odor, scant yellow purulent drainage. Periwound intact. Site measures 2.0 cm x 1.8 cm. Recommend: Cleanse wound with normal saline. Apply moisture barrier cream to diana-wound. Apply Venelex ointment to wound bed. Cover with foam dressing. Perform wound care daily, and as needed for dressing soiling or dislodgement. 4. Left lower extremity, superior and lateral to site 3: Arterial ulcer, present on admission. Site has 55% yellow slough, 40% red tissue, 15% black slough. Wound is in a vertical linear shape. No odor, scant yellow purulent drainage. Periwound intact. Site measures 6.9 cm x 3.5 cm x 0.3 cm. Recommend: Cleanse wound with normal saline. Apply moisture barrier cream to diana-wound. Apply Venelex ointment to wound bed. Cover with foam dressing. Perform wound care daily, and as needed for dressing soiling or dislodgement. 5. Left lateral lower extremity, superior to site 4: Arterial ulcer, present on admission. Wound bed has 100% brown eschar. No odor, no drainage. Periwound intact. Wound measures 1.3 cm x 0.4 cm. Recommend: Thayer site with Betadine daily. Cover with foam dressing. 6. Left great toe: Chronic ischemic wound, present on admission. Wound bed has 90% brown eschar, 10% white eschar. No odor, no drainage. Periwound intact. Dry, stable. Wound measures 0.6 cm x 0.5 cm. 7. Left second toe: Chronic ischemic wound, present on admission. Wound bed has 100% black eschar. No odor, no drainage. Periwound intact. Dry, stable. Wound measures 0.1 cm x 0.2 cm. Recommend: Apply Betadine to wound beds. Perform site care and assess sites daily. 8. Right lateral lower extremity: Arterial ulcer, present on admission. Wound bed has 75% pink tissue, 15% yellow slough, 5% black slough, 5% red tissue. No odor, no drainage. Periwound intact. Wound measures 11.5 cm x 1.0 cm. 9. Right lateral malleolus: Arterial ulcer, present on admission. Wound bed has 85% pink tissue, 10% yellow slough, 5% red tissue. No odor, no drainage. Periwound intact. Wound measures 2.4 cm x 1.4 cm. 10. Right Lateral mid foot: Arterial ulcer, present on admission. Wound bed has 85% yellow slough, 5% black slough, 10% red tissue. No odor, no drainage. Periwound intact. Wound measures 1.3 cm x 0.8 cm. Recommend: Cleanse wounds with normal saline. Apply moisture barrier cream to diana-wounds. Apply Venelex ointment to wound beds. Cover with foam dressings. Perform wound care daily, and as needed for dressing soiling or dislodgement. 11. Sacral-Coccygeal/Buttocks areas: Appears to be moisture associated skin damage that is converting to a pressure ulcer, present on admission. Site has 100% dark red choppy tissue. No odor, scant sanguineous drainage. Entire site measures 6.0 cm x 10.5 cm. Recommend: Cleanse wound with normal saline. Apply moisture barrier cream to diana-wound. Apply Venelex ointment to wound bed. Cover with Sacral foam dressing. Perform wound care daily, and as needed for dressing soiling or dislodgement. 12. Right buttock near ischium: Pressure ulcer, present on admission. Wound bed has 100% red tissue. No odor, no drainage. Periwound intact. Wound measures 4.0 cm x 4.0 cm. 13. Left buttock near ischium: sDTI, present on admission. Site has 50% dark discolored tissue, 50% dark red tissue. No odor, no drainage. Periwound intact. Wound measures 3.5 cm x 3.0 cm. Recommend: Cleanse wounds with normal saline. Apply moisture barrier cream to diana-wounds. Apply Venelex ointment to wound beds. Cover with foam dressings. Perform wound care daily, and as needed for dressing soiling or dislodgement. 14. Right hip near greater trochanter: Pressure ulcer, present on admission. Wound bed has 100% dark red tissue. No odor, no drainage. Periwound intact. Wound measures 5.0 cm x 4.0 cm. Recommend: Cleanse wound with normal saline. Apply moisture barrier cream to diana-wound. Apply Venelex ointment to wound bed. Cover with foam dressing. Perform wound care daily, and as needed for dressing soiling or dislodgement. 15. Mid central back, near C/T junction: Wound of unknown etiology, present on admission. Site is elevated tissue with small open area with 100% red tissue. No odor, scant sanguineous drainage. Periwound intact. Wound measures 0.6 cm x 0.5 cm. Recommend: Cleanse wound with normal saline. Apply moisture barrier cream to diana-wound. Apply Venelex ointment to wound bed. Cover with foam dressing. Perform wound care daily, and as needed for dressing soiling or dislodgement. 16. Left lateral forehead: Wound, present on admission. Wound bed has 90% pink tissue, 10% red tissue. No odor, scant sanguineous is drainage. Periwound intact. Wound measures 2.2 cm x 3.0 cm. Recommend: Cleanse wound with normal saline. Apply moisture barrier cream to diana-wound. Apply Venelex ointment to wound bed. Cover with foam dressing. Perform wound care daily, and as needed for dressing soiling or dislodgement. Posterior back: 17. Posterior bilateral thighs: 18. Pelvic area: 19. Sacral-Coccygeal/Buttocks areas: 20. Abdominal fold: 21. Bilateral inguinal folds: All areas have severe IAD with fungal infection, present on admission. Site have dark red tissue with large amounts of dry, flaky skin. Recommend: Cleanse involved areas with mild soap and water. Pat dry. Place antifungal powder to involved areas. Lay inter-dry AG cloth underneath patient to hold antifungal powder onto skin. Perform site care twice a day, and as needed for soiling. 22. Scrotal area: Severe IAD with fungal infection, present on admission. Site has dark red tissue. Recommend: Cleanse involved area with mild soap and water. Pat dry. Apply antifungal powder to involved area. Lay inter-dry AG cloth underneath Scrotum and pull Scrotum up off of bed by pulling cloth through bilateral thigh/inguinal areas. Perform site care twice a day, and as needed for soiling. Also recommend: Reposition patient side to side only every 2 hours with pillow support and off-load pressure areas with pillows for pressure re-distribution. Offload, elevate and float bilateral heels with pillows. Perform skin care and monitor skin integrity Q shift. Use moisture barrier cream on buttocks and other moisture susceptible areas QID and as needed for soiling. Initiate low air-loss therapy.
--- NOTE | 2019-07-28 16:00 | NUR ---
Note Wound care and assessment done by Lyndon customs investigator and floor RN at this time. Dressings on lower extremities and and head (as well as back) done at this time as well.Dr White did rounds and assessment on pt at this time. Pt resting and tolerating feedings well. Call light within reach.
[2019-07-28 16:15] VITALS: BP_SYST 92
--- NOTE | 2019-07-28 17:00 | NUR ---
1640 BAGGED PT TO NUCLEAR MEDICINE AND SET UP VENT; 1700 TRANSPORTED (BAGGED) PT BACK TO ROOM 111A, SET UP VENT AND HOOKED UP PT Addendum: 07/28/19 at 1749 by Bridget Fernandez RT Amended: Links added.
--- NOTE | 2019-07-28 17:30 | NUR ---
Note Pt was taken down to part II of Nuclear scan of lower extremities at 1630, RT and RN accompanied pt off the floor and then back to room at 1715. Pt stable. GT feedings and IVF's restarted again once pt came back to floor. Call light within reach.
--- NOTE | 2019-07-28 18:25 | NUR ---
Note Pt resting in bed at this time with mechanical ventilation. Pt was checked on q1' and PRN all shift for needs and care. No SOB/resp distress or pain/discomfort noted at this time. Tele unit attached and intact all shift with continuos pulse ox. GT feedings infusing well. Minimal residue. AC PICC intact and patent infusing IVF's well. Pt's lower extremities elevated on pillow. Called radiology about CT angiogram not done, was informed that Radiologist called Dr Anaya and US of lower extremities was recommended instead of CT angio. Order to be put in. No needs noted at this time. Call light within reach.
--- NOTE | 2019-07-28 18:25 | NUR ---
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 Dr Oropeza called back and results were read to at this time. Addendum: 07/28/19 at 1831 by Jyoti Jensen RN Dr Oropeza stated these results of sputum and decubitus were to be expected - it is colonized.
--- NOTE | 2019-07-28 19:40 | NUR ---
OPENING NOTES Received bedside report from BENJAMIN Montes. Patient is resting in bed, eyes closed, breathing evenly and nonlabored. Patient has trach shiley #7, is on a mechanical vent TV 500, FiO2 40%, AC 12, Peep 5. Patient has a PICC line on the AC, patent, benign, no s/s of infiltration or infection noted. Patient has GT feeding running, has a ahuja cath secured, and draining by gravity. Bed is at lowest position, armed, and locked. Fall/safety/aspiration/seizure/isolation precautions. Will continue to monitor. Addendum: 07/29/19 at 0218 by Rolo Wiseman RN Educated patient on plan of care, call light system, fall/safety/seizure precautions, patient unable to state understanding due to cognitive limitations and being nonverbal.
--- NOTE | 2019-07-28 20:40 | NUR ---
ROUNDS Patient is resting in bed, eyes closed, breathing evenly and nonlabored. No s/s of distress at this time. No other needs at this time. Fall/safety/aspiration/respiratory/seizure/isolation precautions.
[2019-07-28] MEDS: ENOXAPARIN SODIUM 30 MG/0.3 ML SYRINGE SUBCUT SCH (22:32)
[2019-07-28 22:36] VITALS: BP_SYST 119
--- NOTE | 2019-07-28 22:50 | NUR ---
MEDICATIONS/ROUNDS Patient is resting in bed, eyes closed, breathing evenly and nonlabored. GT dressing changed. Medications administered, patient tolerated it well. Educated patient on medications, patient unable to respond due to being nonverbal and cognitive limitations. No s/s of distress at this time. No other needs at this time. Fall/safety/aspirations/respiratory/seizure/isolation precautions.
[2019-07-29 00:20] VITALS: BP_SYST 107
[2019-07-29] MEDS: LINEZOLID 300 ML IV SCH ×2 (00:25→13:42)
--- NOTE | 2019-07-29 00:25 | NUR ---
MEDICATIONS/ROUNDS Patient is resting in bed, eyes closed, breathing evenly and nonlabored. Medication administered, patient tolerated it well. Educated patient on medication, patient unable to respond due to being nonverbal and cognitive limitations. No s/s of distress at this time. No other needs at this time. Fall/safety/aspiration/respiratory/seizure/isolation precautions.
--- NOTE | 2019-07-29 02:00 | NUR ---
ROUNDS Patient is resting in bed, eyes closed, breathing evenly and nonlabored. GT feeding running. No s/s of distress at this time. No other needs at this time. Fall/safety/aspiration/respiratory/seizure/isolation precautions.
--- NOTE | 2019-07-29 04:05 | NUR ---
ROUNDS Patient is resting in bed, eyes closed, breathing evenly and nonlabored. GT feeding running. No s/s of distress at this time. No other needs at this time. Fall/safety/aspiration/respiratory/seizure/isolation precautions. Will continue to monitor.
[2019-07-29] MEDS: PIPERACILLIN/TAZO 3.375/DEX-IS 50 ML IV SCH ×3 (05:08→20:55)
[2019-07-29] MEDS: VALPROIC ACID ORAL SYRUP 250 MG/5 ML UDC GT SCH ×3 (05:09→21:13)
--- NOTE | 2019-07-29 05:40 | NUR ---
MEDICATIONS/ROUNDS Patient is resting in bed, eyes closed, breathing evenly and nonlabored. Hygiene care performed. BS checked, no coverage needed. Medications administered, patient tolerated it well. Educated patient on medications, patient unable to respond due to being nonverbal and cognitive limitations. No s/s of distress at this time. No other needs at this time. Fall/safety/aspiration/respiratory/seizure/isolation precautions.
[2019-07-29 07:38] LABS: HEMATOCRIT 22.9 % (36-54); HEMOGLOBIN 7.6 g/dL (14.0-18.0); MEAN CORPUSCULAR HEMOGLOBIN 36 pg (27-31); MEAN CORPUSCULAR HGB CONC 33 % (32-36); MEAN CORPUSCULAR VOLUME 108 fL (79.0-98.0); PLATELET COUNT (AUTO) 183 K/uL (130-430); RED BLOOD CELL COUNT(AUTO) 2.12 MIL/uL (4.2-6.2); RED CELL DISTRIBUTION WIDTH 19.4 % (9.0-15.0); WHITE BLOOD COUNT (AUTO) 10.2 K/uL (4.8-10.8)
--- NOTE | 2019-07-29 08:00 | NUR ---
PATIENT OPENS EYES, BUT THEY DONT TRACK. ON VENT; TV 500, FI02 40%, AC 12 ,PEEP 5. UPPER PICC LINE X 2 LUMEN INFUSING IVF. GLUCERNA 1.5 AT 70 ML/HR, NO RESIDUALS. SUPRAPUBIC CATH DRAINING YELLOW URINE BY GRAVITY. BOTH HEELS FLOATED WOUND DRESSING INTACT. CALL LIGHT IN PLACE, BED LOCKED AT THE LOWEST POSITION WITH BED ALARM ON. SR ON MONITOR.
[2019-07-29 08:40] LABS: ANION GAP 8 (5-15); CALCIUM 8.2 mg/dL (8.4-11.0); CHLORIDE 105 mmol/L (98-107); GLUCOSE 140 mg/dL (70-99); POTASSIUM 4.1 mmol/L (3.5-5.1); SODIUM SERUM 143 mmol/L (136-145); UREA NITROGEN, BLOOD 32 mg/dL (8-21)
[2019-07-29 08:41] LABS: CREATININE 0.99 mg/dL (0.55-1.30); PHOSPHORUS 4.2 mg/dL (2.7-4.5)
[2019-07-29 09:41] LABS: ATYPICAL LYMPHOCYTES % 0 % (0-0); BASOPHILS % (MANUAL) 0 % (0-2); EOSINOPHILS % (MANUAL) 0 % (0-7); LYMPHOCYTES % (MANUAL) 28 % (20-46); METAMYELOCYTES % 2 % (0-0); MONOCYTES % (MANUAL) 7 % (0-11); MYELOCYTES % 1 % (0-0)
[2019-07-29] MEDS: FERROUS SULFATE 300 MG/5 ML UDC GT SCH (09:48)
[2019-07-29] MEDS: POTASSIUM CHLORIDE 20 MEQ/PKT PACKET PO SCH (09:48)
[2019-07-29] MEDS: PHENYTOIN 100 MG/4 ML UDC (DILANTIN) GT SCH ×2 (09:48→20:53)
[2019-07-29] MEDS: LANSOPRAZOLE 30 MG CAPSULE.DR GT SCH (09:48)
[2019-07-29] MEDS: DOCUSATE SODIUM 100 MG/10 ML UDC GT SCH (09:49)
[2019-07-29] MEDS: ERGOCALCIFEROL 8000 UNITS/ML ORAL SOLUTION, 60 ML BOTTLE GT SCH (09:49)
[2019-07-29] MEDS: BALSAM PERU/CASTOR OIL 60 GM OINT...G. TP SCH (09:49)
[2019-07-29] MEDS: FUROSEMIDE 20 MG TABLET GT SCH ×2 (09:49→20:54)
[2019-07-29] MEDS: HYDROCORTISONE 1%, 28.35 GM TOPICAL CREAM TP SCH ×2 (09:50→20:55)
[2019-07-29 10:00] LABS: BAND % (MANUAL) 1 % (0-6)
--- NOTE | 2019-07-29 10:08 | NUR ---
PATIENT IS TURNED AND REPOSITIONED FOR COMFORT.
[2019-07-29 11:28] VITALS: BP_SYST 140
[2019-07-29] MEDS ORDERED: IOHEXOL 350 mgI/mL, 150 ML INFUS..BTL IV ONE (11:52)
--- NOTE | 2019-07-29 12:30 | NUR ---
PATIENT IS TAKEN TO CT ANGIOGRAM. STRATEGIC CLIENT EXECUTIVE STATES THAT THE PROCEDURE WAS UNSUCCESSFUL. PATIENT WAS THEN TAKEN BACK TO HIS ROOM. V/S WAS STABLE AFTER PATIENT WAS RETURNED FROM CT.
[2019-07-29] MEDS: LORazepam 2 MG/ML VIAL IVP PRN (12:36)
--- NOTE | 2019-07-29 14:35 | NUR ---
PATIENT HAD A BM. HE IS CLEANED AND REPOSITIONED FOR COMFORT.
[2019-07-29 15:09] VITALS: BP_SYST 104
--- NOTE | 2019-07-29 17:00 | NUR ---
BLOOD SUGAR 115. NO COVERAGE IS NEEDED.
[2019-07-29 19:00] VITALS: BP_SYST 110
--- NOTE | 2019-07-29 19:15 | NUR ---
change of shift.pt.presents isolation status.contact.pt.presents affect;aflat/blunt.pt.presents trach/vent.pt.presents picc line;rt.bicept. pt.presents g-tube w/feed.pt.presents supra-pubic cath.call light/telephone w/in reach of the pt.
[2019-07-29 20:00] VITALS: BP_SYST 110
--- NOTE | 2019-07-29 20:00 | NUR ---
pt.assessed v/s assessed.values w/in kevin limits.i have reviewed the vent settings;tv;500,FIO2%=40%,A/C 12,P:5.i have attended to the oral/trach suction.i have attended to the oral/trach care.picc line intact;patent.iv fluids infusing.g-tube intact; patent g-tube feed infusing.supra-pubic cath intact patent;urine content present.pt.assessed for cleanliness.pt repositioned.general status stable.respiratory status stable;o2-sat%=98%.call light/telephone placed w/in reach of the pt.
[2019-07-29] MEDS: IPRATROPIUM/ALBUTEROL SULFATE 3 ML AMPUL.NEB (DUONEB) INH SCH (20:09)
--- NOTE | 2019-07-29 20:30 | NUR ---
i haVE ASSESSED THE BLOOD GLUCOSE;VALUE:100MG/DL.
[2019-07-29] MEDS: NACL 0.9% 1,000 ML IV SCH (20:56)
--- NOTE | 2019-07-29 21:00 | NUR ---
2100p medications administered via the g-tube.administered w/out resistance.post administration flush.
[2019-07-29] MEDS: ENOXAPARIN SODIUM 30 MG/0.3 ML SYRINGE SUBCUT SCH (21:16)
--- NOTE | 2019-07-29 22:00 | NUR ---
pt.assessed.pt.assessed for cleanliness.pt repositioned.i have attended to the oral/trach care.i have attended to the oral/trach suction. picc line intact;patent;iv fluids infusing.g-tube intact;patent g-tube feed infusing.supra-pubic cath intact;patent:urine content present.call light/telephone placed w/in reach of the pt. Addendum: 07/30/19 at 0101 by Krishna Roman RN o2-sat%=98%.
--- NOTE | 2019-07-30 | NUR ---
pt.assessed v/a assessed;values w/in normal limits.i have reviewed the vent settings.i have attended to the oral/trach care. i have attended to the oral/trach suction.picc line intact;patent;iv fluids.infusing.g-tube intact patent;g-tube feed infusing.suprapubic cath intact;patent:urine content present.pt assessed for cleanliness.pt.repositioned.i have administered zyvox;0000- am dose via picc line.call light/telephone placed w/in reach of the pt. Addendum: 07/30/19 at 0101 by Krishna Roman RN 02-sat%=98%.
[2019-07-30] MEDS: LINEZOLID 300 ML IV SCH ×3 (00:08→23:49)
[2019-07-30] MEDS: IPRATROPIUM/ALBUTEROL SULFATE 3 ML AMPUL.NEB (DUONEB) INH SCH ×7 (00:19→23:33)
[2019-07-30 01:44] VITALS: BP_SYST 105
--- NOTE | 2019-07-30 02:00 | NUR ---
pt.assessed.pt.assessed for cleanliness.pt.repositioned.i have attended to the oral/trach care.i have attended to the oral/trach suction.picc line intact;patent.iv fluids infusing.g-tube intact;patent g-tube feed infusing.supra-pubic cath intact;patent; urine content present general status stable.respiratory status stable;unlabored.call light/telephone placed w/in reach of the pt.
--- NOTE | 2019-07-30 04:00 | NUR ---
pt.assessed.i have attended to the oral/trach care.i have attended to the oral/trach [id number].picc line intact,g-tube intact,supra-pubic cath intact.pt.assessed for cleanliness.pt.cleaned pt.repositioned.call light/telephone placed w/in reach of the pt.
[2019-07-30 05:07] LABS: FOLATE (FOLIC ACID) 12.8 ng/mL (>3.0)
[2019-07-30] MEDS: PIPERACILLIN/TAZO 3.375/DEX-IS 50 ML IV SCH ×3 (05:12→22:03)
[2019-07-30] MEDS: VALPROIC ACID ORAL SYRUP 250 MG/5 ML UDC GT SCH ×3 (05:13→22:04)
--- NOTE | 2019-07-30 06:00 | NUR ---
pt.assessed.pt.assessed fore cleanliness.pt.repositioned.i have attended to the oral/trach care.i have atten to the oral/trach suction. g-tube intact;patent;g-tube fed infusing.i have changed the g-tube feed bottle/tubing.picc line intact;patent iv fluids infusing.i have administered the zosyn;abx;ivpb;0500 a dose.i have administered the depakane elixir via the g-tube w/out resistance.pt.tolerating the g-tube feed residuals;scant;10ml,i have administer g-tube flush.supra-pubic cath intact;patent;urine content present, i have weighed the pt.this am;chf/lasix hx.call light/telephone placed w/in reach of the pt. Addendum: 07/30/19 at 0621 by Krishna Roman RN i have assessed the blood glucose;value:128mg/dl.
[2019-07-30 07:53] LABS: BASOPHILS # (AUTO) 0.1 K/uL (0.0-0.2); BASOPHILS % (AUTO) 0.8 % (0.0-2.0); EOSINOPHILS # (AUTO) 0.2 K/uL (0.0-0.4); EOSINOPHILS % (AUTO) 1.8 % (0.0-4.0); HEMATOCRIT 24.8 % (36-54); HEMOGLOBIN 8.1 g/dL (14.0-18.0); LYMPHOCYTES # (AUTO) 2.3 K/uL (1.0-5.5); LYMPHOCYTES % (AUTO) 22.3 % (20.5-51.5); MEAN CORPUSCULAR HEMOGLOBIN 35 pg (27-31); MEAN CORPUSCULAR HGB CONC 33 % (32-36); MEAN CORPUSCULAR VOLUME 108 fL (79.0-98.0); MONOCYTES # (AUTO) 0.8 K/uL (0.0-1.0); MONOCYTES % (AUTO) 8.1 % (1.7-9.3); NEUTROPHILS # (AUTO) 6.9 K/uL (1.8-7.7); PLATELET COUNT (AUTO) 189 K/uL (130-430); RED CELL DISTRIBUTION WIDTH 19.8 % (9.0-15.0); WHITE BLOOD COUNT (AUTO) 10.3 K/uL (4.8-10.8)
[2019-07-30 08:21] LABS: ANION GAP 7 (5-15); CALCIUM 8.4 mg/dL (8.4-11.0); CHLORIDE 106 mmol/L (98-107); CREATININE 1.03 mg/dL (0.55-1.30); GLUCOSE 156 mg/dL (70-99); PHOSPHORUS 4.4 mg/dL (2.7-4.5); POTASSIUM 4.2 mmol/L (3.5-5.1); SODIUM SERUM 143 mmol/L (136-145); UREA NITROGEN, BLOOD 30 mg/dL (8-21)
[2019-07-30] MEDS: LANSOPRAZOLE 30 MG CAPSULE.DR GT SCH (08:36)
[2019-07-30] MEDS: FERROUS SULFATE 300 MG/5 ML UDC GT SCH (08:37)
[2019-07-30] MEDS: POTASSIUM CHLORIDE 20 MEQ/PKT PACKET PO SCH (08:38)
[2019-07-30] MEDS: FOLIC ACID 1 MG TABLET GT SCH (08:38)
[2019-07-30] MEDS: PHENYTOIN 100 MG/4 ML UDC (DILANTIN) GT SCH ×2 (08:38→22:03)
[2019-07-30] MEDS: FUROSEMIDE 20 MG TABLET GT SCH ×2 (08:39→22:02)
[2019-07-30] MEDS: ERGOCALCIFEROL 8000 UNITS/ML ORAL SOLUTION, 60 ML BOTTLE GT SCH (08:40)
[2019-07-30] MEDS: HYDROCORTISONE 1%, 28.35 GM TOPICAL CREAM TP SCH ×2 (08:41→22:06)
[2019-07-30] MEDS: BALSAM PERU/CASTOR OIL 60 GM OINT...G. TP SCH (08:41)
[2019-07-30] MEDS: DOCUSATE SODIUM 100 MG/10 ML UDC GT SCH (08:56)
--- NOTE | 2019-07-30 09:35 | NUR ---
PATIENT HAD A MODERATE BM. HE IS TURNED AND CLEANED FOR DISCOMFORT.
--- NOTE | 2019-07-30 11:15 | NUR ---
BLOOD SUGAR 120. NO COVERAGE NEEDED.
[2019-07-30 12:23] VITALS: BP_SYST 108
[2019-07-30] MEDS: LORazepam 2 MG/ML VIAL IVP PRN ×2 (13:24→23:51)
--- NOTE | 2019-07-30 13:40 | NUR ---
Nutrition Follow Up RD reviewed pt's current EMR including diet hx, physician notes, nursing notes, pertinent labs/meds/procedures, care trends and care activity. Admitting Diagnosis: Osteomyelitis of the right foot Subjective Information: Pt remains unresponsive, on trach. Pt continuing wound care to the bilateral heel necrotic ulcers, Caden BID in place, TF adequate in vitamins and minerals for wound healing. MD recommending comfort care. TF running, 30ml enfused upon RD visit. Anthropometrics taken via bedscale. Residuals at 10ml, pt appears to be tolerating TF well. Current Diet Order/Nutrition Support: Glucerna 1.5 at 70ml/hr and 100ml Q6H w/Caden BID x 2 days Provides 2520kcal, 144gPro, and 1675ml of free water Meets 115%kcal and 90% of upper end of estimated protein needs LABS: POC: 115H, 100H, 128H, 120H Estimated Energy Expenditure (kcals/day) 2184 (MSJ x 1.3 x 1.4 for chronic dz and wound healing) Estimated Protein Required (g/day) 90-156 g/day (1.2-2g/kg based on Adj BW for chronic dz and wound healing) Estimated Fluid Required (l/day) 1.8-2.1L/day (based on CBW for maintenance) Problem/Etiology/Signs/Symptoms Increased nutrient needs related to wound healing as evidenced by multiple pressure injuries *ongoing* Expected Outcomes/Goals Monitor EN tolerance and intake w/ goal of pt meeting at least 75% of estimated nutritional needs, labs trending WNL, normal GI function, skin integrity/wt maintenance. Dietitian Recommendations *Continue Glucerna 1.5 at 70ml/hr w/ 100ml FWF Q6H and Caden BID *Provides 2520kcal, 144gPro, and 1675ml of free water *Meets 115%kcal and 90% of upper end of estimated protein needs Follow Up High Risk: F/U in 2-3days
--- NOTE | 2019-07-30 13:46 | NUR ---
Dietitian Recommendations *Continue Glucerna 1.5 at 70ml/hr w/ 100ml FWF Q6H and Caden BID *Provides 2520kcal, 144gPro, and 1675ml of free water *Meets 115%kcal and 90% of upper end of estimated protein needs Please see Nutrition Follow Up for further details. LT, RD
[2019-07-30] MEDS ORDERED: IOHEXOL 350 mgI/mL, 150 ML INFUS..BTL IV ONE (15:10)
--- NOTE | 2019-07-30 15:30 | NUR ---
Radiology dept calls to inform nurse that cardiac cath technician not available. CT angio will be delayed until tomorrow.
[2019-07-30 16:11] VITALS: BP_SYST 102
--- NOTE | 2019-07-30 17:00 | NUR ---
blood sugar 135. No coverage needed.
--- NOTE | 2019-07-30 18:07 | NUR ---
Wound care is done. Patient tolerated without distress.
--- NOTE | 2019-07-30 19:50 | NUR ---
INITIAL NOTES: PT EYES ARE CLOSED , PT ON VENT AC12, TV 500 , FIO2 40% , PEEP 5 , PT IS TOLERATING VENT SETTINGS WELL ; ASSESSMENT DONE , NOTICED DRESSING WERE CHANGED BY DAY SHIFT . PT HAS A SUPRAPUBIC CATH , CATH DRAINING YELLOW COLOR URINE TO GRAVITY ; ORAL CARE GIVEN , ORAL AND TRACHEAL SUCTION PROVIDED ; R UPPER ARM PICC LINE IN PLACE , IV FLUID IS INFUSING WELL ;G TUBE , RESIDUAL IS LESS THAN 10 ML ; GT FLUSHED WELL ; BED IN LOW AND LOCK POSITION ; PT IS UNABLE TO MAKE CALL ; TELE MONITOR IS RUNNING SR ; PT SAT 100 % . BED ALARM IS ON ; SIDE RAILS ARE UP , AND PADDED FOR SEIZURE PRECAUTION , ISOLATION PRECAUTION MAINTAINED ; WILL CONTINUE TO MONITOR PT . Addendum: 07/31/19 at 0703 by Philly Ortiz RN TELEMONITOR , SR WITH PACEMAKER ON DEMAND
[2019-07-30 20:06] VITALS: BP_SYST 125
[2019-07-30] MEDS: ENOXAPARIN SODIUM 30 MG/0.3 ML SYRINGE SUBCUT SCH (21:59)
[2019-07-30] MEDS: NACL 0.9% 1,000 ML IV SCH (22:00)
--- NOTE | 2019-07-30 22:15 | NUR ---
MEDICATION: DUE MEDICATION GIVEN PER ORDER; GT FLUSHED WELL ; GT FEEDING PUTON HOLD SINCE PT RECEIVED DILANTIN , WILL RESTART AFTER 1 HR
--- NOTE | 2019-07-30 23:15 | NUR ---
RN NOTES: GT FLUSHED , GT FEEDING RESTARTED , PT IS COMFORTABLE .
--- NOTE | 2019-07-30 23:55 | NUR ---
BENJAMIN NOTES: NOTICED PT IS HAVING JERKEY MOVEMENT TO HIS HANDS , AND LOOKS RESTLESS EVEN THOUGH PT CANNOT MOVE HIS BODY WELL ; ATIVAN GIVEN PER ORDER . Addendum: 07/31/19 at 0646 by Philly Ortiz RN ORAL CARE GIVEN , ORAL AND TRACH SUCTION PROVIDED .
--- NOTE | 2019-07-31 01:00 | NUR ---
RN NOTES: PT IS SLEEPING , RESPIRATION IS EVEN AND NON LABORED TOLERATING VENT SETTING WELL , GT FEEDING AND IV FLUID ARE INFUSING WELL ; WILL CONTINUE TO MONITOR PT .
[2019-07-31 01:38] VITALS: BP_SYST 102
[2019-07-31] MEDS: IPRATROPIUM/ALBUTEROL SULFATE 3 ML AMPUL.NEB (DUONEB) INH SCH ×6 (03:15→23:25)
--- NOTE | 2019-07-31 04:30 | NUR ---
BM: PT IS INCONTINENT WITH LOOSE BM ; PT CLEANED ; LINEN AND ALVERTO CHANGED ; APPLIED HYDROCORTISONE TO THE ERYTHEMATOSUS AREA TO THE BACK ; ALL DRESSING VERY CHANGED BY DAYSHIFT RN , BUT SACRAL DRESSING WAS OUT , CLEANED WITH NS , APPLIED VENELEX AND COVERED WITH FOAM DRESSING ; GT DRESSING AND SUPRAPUBIC CATH DRESSINGS WERE NOT CHANGED , SO REMOVED OLD DRESSING CLEANED STOMA SITE , PAT DRIED , COVERED WITH [place]GH[place] DRESSING , NO DRAINAGE NOTICED .PT ORAL CARE PROVIDED ; ORAL AND TRACHEAL SUCTION PROVIDED ; PT TURNED AND REPOSITIONED ; GT FEEDING RESTARTED ; HOB ELEVATED ; BED IN LOW AND LOCK POSITION ; WILL CONTINUE TO MONITOR PT .
[2019-07-31] MEDS: LORazepam 2 MG/ML VIAL IVP PRN ×2 (04:36→13:32)
[2019-07-31] MEDS: PIPERACILLIN/TAZO 3.375/DEX-IS 50 ML IV SCH ×3 (04:39→22:35)
--- NOTE | 2019-07-31 04:40 | NUR ---
RN NOTES: NOTICED PT IS HAVING JERKEY MOVEMENT TO HIS HANDS , AND LOOKS RESTLESS EVEN THOUGH PT CANNOT MOVE HIS BODY WELL ; ATIVAN GIVEN PER ORDER .
[2019-07-31] MEDS: VALPROIC ACID ORAL SYRUP 250 MG/5 ML UDC GT SCH ×3 (05:36→22:33)
--- NOTE | 2019-07-31 05:45 | NUR ---
MEDICATION: DUE MEDS GIVEN ;BS 115 , NO INSULIN COVERAGE NEEDED . WILL CONTINUE TO MONITOR
--- NOTE | 2019-07-31 06:57 | NUR ---
CLOSING NOTES: PT LOOKS LIKE SLEEPING , EYES ARE CLOSED , PT ON VENT AC12, TV 500 , FIO2 40% , PEEP 5 , PT IS TOLERATING VENT SETTINGS WELL ; PT HAS A SUPRAPUBIC CATH , CATH DRAINING DARK YELLOW COLOR URINE TO GRAVITY ; R UPPER ARM PICC LINE IN PLACE , IV FLUID IS INFUSING WELL ;G TUBE FEEDING IS INFUSING WELL ; BED IN LOW AND LOCK POSITION ; PT IS UNABLE TO MAKE CALL ; TELE MONITOR IS RUNNING SR ; PT SAT 100 % . BED ALARM IS ON ; SIDE RAILS ARE UP SIDE RAILS ARE PADDED FOR SEIZURE PRECAUTION , ISOLATION PRECAUTION MAINTAINED ; HOB WAS ELEVATED ALL TIMES ;WILL CONTINUE TO MONITOR PT .
[2019-07-31 07:16] LABS: BASOPHILS # (AUTO) 0.1 K/uL (0.0-0.2); HEMOGLOBIN 7.2 g/dL (14.0-18.0); MEAN CORPUSCULAR HGB CONC 33 % (32-36); NEUTROPHILS # (AUTO) 6.4 K/uL (1.8-7.7); WHITE BLOOD COUNT (AUTO) 9.8 K/uL (4.8-10.8)
[2019-07-31 07:20] LABS: BASOPHILS % (AUTO) 0.7 % (0.0-2.0); EOSINOPHILS # (AUTO) 0.2 K/uL (0.0-0.4); EOSINOPHILS % (AUTO) 2.5 % (0.0-4.0); LYMPHOCYTES # (AUTO) 2.3 K/uL (1.0-5.5); LYMPHOCYTES % (AUTO) 23.2 % (20.5-51.5); MEAN CORPUSCULAR HEMOGLOBIN 36 pg (27-31); MEAN CORPUSCULAR VOLUME 109 fL (79.0-98.0); MONOCYTES # (AUTO) 0.8 K/uL (0.0-1.0); MONOCYTES % (AUTO) 8.3 % (1.7-9.3); PLATELET COUNT (AUTO) 177 K/uL (130-430); RED CELL DISTRIBUTION WIDTH 20.1 % (9.0-15.0)
--- NOTE | 2019-07-31 07:25 | NUR ---
REPORT GIVEN TO RN AT BEDSIDE , PT IS COMFORTABLE
[2019-07-31 07:46] LABS: ANION GAP 6 (5-15); CALCIUM 8.2 mg/dL (8.4-11.0); CHLORIDE 107 mmol/L (98-107); CREATININE 0.96 mg/dL (0.55-1.30); GLUCOSE 134 mg/dL (70-99); POTASSIUM 4.2 mmol/L (3.5-5.1); SODIUM SERUM 144 mmol/L (136-145); UREA NITROGEN, BLOOD 26 mg/dL (8-21)
--- NOTE | 2019-07-31 08:00 | NUR ---
initial notes rec patient asleep opens eyes but non verbally responsive. pt on mechanical ventilator and monitored. resp easy and unlabored. no sob noted.call light within reached . bed to the lowest position and side rails up and locked.
[2019-07-31 08:13] LABS: RED BLOOD CELL COUNT(AUTO) 1.99 MIL/uL (4.2-6.2)
[2019-07-31 08:16] LABS: HEMATOCRIT 21.8 % (36-54)
[2019-07-31 08:17] LABS: NEUTROPHILS % (AUTO) 65.3 % (40.0-70.0)
[2019-07-31] MEDS: DOCUSATE SODIUM 100 MG/10 ML UDC GT SCH (09:37)
[2019-07-31] MEDS: POTASSIUM CHLORIDE 20 MEQ/PKT PACKET PO SCH (09:38)
[2019-07-31] MEDS: PHENYTOIN 100 MG/4 ML UDC (DILANTIN) GT SCH ×2 (09:38→22:27)
[2019-07-31] MEDS: LANSOPRAZOLE 30 MG CAPSULE.DR GT SCH (09:38)
[2019-07-31] MEDS: FOLIC ACID 1 MG TABLET GT SCH (09:38)
[2019-07-31] MEDS: FERROUS SULFATE 300 MG/5 ML UDC GT SCH (09:38)
[2019-07-31] MEDS: ERGOCALCIFEROL 8000 UNITS/ML ORAL SOLUTION, 60 ML BOTTLE GT SCH (09:39)
[2019-07-31] MEDS: HYDROCORTISONE 1%, 28.35 GM TOPICAL CREAM TP SCH ×2 (09:40→22:35)
[2019-07-31] MEDS: BALSAM PERU/CASTOR OIL 60 GM OINT...G. TP SCH (09:41)
[2019-07-31] MEDS: FUROSEMIDE 20 MG TABLET GT SCH ×2 (09:54→22:32)
[2019-07-31] MEDS ORDERED: IOHEXOL 350 mgI/mL, 150 ML INFUS..BTL IV ONE (11:00)
--- NOTE | 2019-07-31 11:15 | NUR ---
Pt accompanied to Radiology on Portable monitor for CTA of the Lower Extremities.
--- NOTE | 2019-07-31 11:45 | NUR ---
Back to Telemetry Rm [id number].
[2019-07-31 12:26] VITALS: BP_SYST 115
[2019-07-31] MEDS: LINEZOLID 300 ML IV SCH (13:33)
[2019-07-31 16:20] VITALS: BP_SYST 110
--- NOTE | 2019-07-31 19:30 | NUR ---
Opening Note Received patient resting in bed w/eyes open. He is on ventilator w/ settings: AC 12, TV 500, FIO2 40%, PEEP 5. PIIC to AC, suprapubic auhja cath bag to gravity. G-tube feeding is running at 70 ml/hr, IVF infusing at 70 ml/hr. Side rails up 3x, bed alarm on.
[2019-07-31 20:00] VITALS: BP_SYST 130
--- NOTE | 2019-07-31 20:20 | NUR ---
Dr. Robel Anaya Incoming call from Dr. Anaya, charge nurse and assistant housekeeping manager. He asked that we have conservator call him so that he can explain surgical procedure (left BKA) and get consent. He provided his cell phone # [phone].
--- NOTE | 2019-07-31 22:15 | NUR ---
voice message for conservator Called Francesca craft, ; no answer, I left message on voice mail informing doctor needs to talk to her to explain procedure and so she can give consent.
[2019-07-31] MEDS: NACL 0.9% 1,000 ML IV SCH (22:27)
--- NOTE | 2019-07-31 22:35 | NUR ---
Medications Due medications given via G-tube and antibiotic administered via AC PIIC. Patient tolerating.
[2019-07-31] MEDS: ENOXAPARIN SODIUM 30 MG/0.3 ML SYRINGE SUBCUT SCH (22:46)
--- NOTE | 2019-08-01 00:10 | NUR ---
Free water / Patient care Due antibiotic administered and patient tolerating. Zero residual noted, provided 100ml free water flush. patient repositioned, provided oral care.
[2019-08-01] MEDS: LINEZOLID 300 ML IV SCH (00:20)
[2019-08-01 00:59] VITALS: BP_SYST 136
[2019-08-01] MEDS: IPRATROPIUM/ALBUTEROL SULFATE 3 ML AMPUL.NEB (DUONEB) INH SCH ×6 (02:40→23:26)
--- NOTE | 2019-08-01 03:45 | NUR ---
Reposition / patient care Patient had bowel movement and provided with diana-care, bed bath, CHG bath and linen change. Sacral dressing was changed. Provided oral care.
--- NOTE | 2019-08-01 04:15 | NUR ---
PIIC dressing change PIIC line dressing changed per policy, patient tolerated
[2019-08-01] MEDS: PIPERACILLIN/TAZO 3.375/DEX-IS 50 ML IV SCH (06:03)
[2019-08-01] MEDS: VALPROIC ACID ORAL SYRUP 250 MG/5 ML UDC GT SCH ×3 (06:04→22:56)
--- NOTE | 2019-08-01 06:23 | NUR ---
Free water / Patient care / Antibiotic Due antibiotic administered and patient tolerating. Zero residual noted, administered due medication and provided 100ml free water flush. patient repositioned, provided oral care.
[2019-08-01 07:18] LABS: BASOPHILS # (AUTO) 0.1 K/uL (0.0-0.2); BASOPHILS % (AUTO) 0.8 % (0.0-2.0); EOSINOPHILS # (AUTO) 0.4 K/uL (0.0-0.4); EOSINOPHILS % (AUTO) 3.5 % (0.0-4.0); HEMATOCRIT 24.2 % (36-54); LYMPHOCYTES # (AUTO) 2.2 K/uL (1.0-5.5); MEAN CORPUSCULAR HEMOGLOBIN 36 pg (27-31); MEAN CORPUSCULAR HGB CONC 33 % (32-36); MEAN CORPUSCULAR VOLUME 110 fL (79.0-98.0); MONOCYTES # (AUTO) 0.8 K/uL (0.0-1.0); MONOCYTES % (AUTO) 7.7 % (1.7-9.3); NEUTROPHILS # (AUTO) 7.4 K/uL (1.8-7.7); PLATELET COUNT (AUTO) 182 K/uL (130-430); RED CELL DISTRIBUTION WIDTH 19.4 % (9.0-15.0); WHITE BLOOD COUNT (AUTO) 10.8 K/uL (4.8-10.8)
[2019-08-01 08:00] VITALS: BP_SYST 105
--- NOTE | 2019-08-01 08:00 | NUR ---
initial notes rec patient awake opens eyes but non verbally responsive. pt on a ventilator, on contact isolation and with multiple wounds. bed to the lowest position and side rails up and locked.
[2019-08-01] MEDS: DOCUSATE SODIUM 100 MG/10 ML UDC GT SCH (09:00)
[2019-08-01] MEDS: POTASSIUM CHLORIDE 20 MEQ/PKT PACKET PO SCH (09:32)
[2019-08-01] MEDS: FERROUS SULFATE 300 MG/5 ML UDC GT SCH (09:32)
[2019-08-01] MEDS: PHENYTOIN 100 MG/4 ML UDC (DILANTIN) GT SCH ×2 (09:32→22:56)
[2019-08-01] MEDS: FOLIC ACID 1 MG TABLET GT SCH (09:33)
[2019-08-01] MEDS: LANSOPRAZOLE 30 MG CAPSULE.DR GT SCH (09:33)
[2019-08-01] MEDS: ERGOCALCIFEROL 8000 UNITS/ML ORAL SOLUTION, 60 ML BOTTLE GT SCH (09:39)
[2019-08-01] MEDS: FUROSEMIDE 20 MG TABLET GT SCH ×2 (09:40→23:01)
[2019-08-01] MEDS: HYDROCORTISONE 1%, 28.35 GM TOPICAL CREAM TP SCH ×2 (09:41→22:58)
[2019-08-01] MEDS: BALSAM PERU/CASTOR OIL 60 GM OINT...G. TP SCH (09:41)
--- NOTE | 2019-08-01 09:53 | NUR ---
rounds seen by dr madrigal covering for dr davidson saw the patient.
--- NOTE | 2019-08-01 10:00 | NUR ---
rounds due meds given and alberto well. no residual noted. no sob noted.
[2019-08-01 11:21] VITALS: BP_SYST 144
--- NOTE | 2019-08-01 12:53 | NUR ---
LEFT MESSAGE TO CONSERVATOR LEFT MESSAGE TO CONSERVATOR DL DORMAN CONSERVATOR OF PATIENT TO CALL BACK AT [facility] SO SHE CAN TALK TO DR MCNEIL REGARDING SURGERY. TRIED ALSO ANOTHER PHONE NUMBER LEFT ON DL'S VOICE MAIL FOR EMERGENCY SITUATION( [phone]). AWAITING TO CALL BACK.
--- NOTE | 2019-08-01 13:00 | NUR ---
rounds no hypo hyperglycemic reaction noted. turned repositioned for comfort.
[2019-08-01] MEDS: PIPERACILLIN/TAZO 4.5GM/DEX-IS 100 ML IV SCH ×2 (14:37→22:55)
[2019-08-01 15:24] VITALS: BP_SYST 112
--- NOTE | 2019-08-01 16:00 | NUR ---
rounds continue to turn repositioned for comfort. sleeps at intervals.
--- NOTE | 2019-08-01 18:40 | NUR ---
closing notes sleeping soundly at this time. no acute distress noted. bed to the lowest position and bread wrapper ails up and locked. stable and needs attended.
--- NOTE | 2019-08-01 19:30 | NUR ---
Opening Note Received patient resting in bed w/eyes open. He is on ventilator w/ settings: AC 12, TV 500, FIO2 40%, PEEP 5. PIIC to AC, suprapubic ahuja cath bag to gravity. G-tube feeding is running at 70 ml/hr, IVF infusing at 30 ml/hr. Side rails up 3x, bed alarm on.
[2019-08-01 20:00] VITALS: BP_SYST 118
--- NOTE | 2019-08-01 22:56 | NUR ---
Medications Due medications given, via G-tube as ordered, no residual noted. Repositioned and provided oral care.
[2019-08-01] MEDS: NACL 0.9% 1,000 ML IV SCH (22:57)
[2019-08-01] MEDS: ENOXAPARIN SODIUM 30 MG/0.3 ML SYRINGE SUBCUT SCH (23:06)
[2019-08-02] VITALS: BP_SYST 115
--- NOTE | 2019-08-02 00:30 | NUR ---
Free water Noted 5 ml of residual and returned. Administered free water flush and patient tolerating, ventilator settings as ordered.
--- NOTE | 2019-08-02 02:15 | NUR ---
Rounds Repositioned and turned patient
[2019-08-02] MEDS: IPRATROPIUM/ALBUTEROL SULFATE 3 ML AMPUL.NEB (DUONEB) INH SCH ×6 (04:07→23:43)
[2019-08-02] MEDS: LORazepam 2 MG/ML VIAL IVP PRN (04:54)
[2019-08-02] MEDS: VALPROIC ACID ORAL SYRUP 250 MG/5 ML UDC GT SCH ×3 (05:34→21:03)
[2019-08-02] MEDS: PIPERACILLIN/TAZO 4.5GM/DEX-IS 100 ML IV SCH ×3 (05:35→21:03)
--- NOTE | 2019-08-02 06:10 | NUR ---
Free water free water, due antibiotic, and mediations given. bathed and repositioned. buttocks dressing change done
[2019-08-02 06:32] LABS: BASOPHILS # (AUTO) 0.1 K/uL (0.0-0.2); BASOPHILS % (AUTO) 0.6 % (0.0-2.0); EOSINOPHILS # (AUTO) 0.2 K/uL (0.0-0.4); EOSINOPHILS % (AUTO) 2.6 % (0.0-4.0); HEMATOCRIT 22.8 % (36-54); HEMOGLOBIN 7.5 g/dL (14.0-18.0); LYMPHOCYTES # (AUTO) 2.3 K/uL (1.0-5.5); LYMPHOCYTES % (AUTO) 25.1 % (20.5-51.5); MEAN CORPUSCULAR HEMOGLOBIN 36 pg (27-31); MEAN CORPUSCULAR HGB CONC 33 % (32-36); MEAN CORPUSCULAR VOLUME 111 fL (79.0-98.0); MONOCYTES # (AUTO) 0.8 K/uL (0.0-1.0); MONOCYTES % (AUTO) 8.5 % (1.7-9.3); NEUTROPHILS # (AUTO) 5.7 K/uL (1.8-7.7); NEUTROPHILS % (AUTO) 63.2 % (40.0-70.0); PLATELET COUNT (AUTO) 185 K/uL (130-430); RED BLOOD CELL COUNT(AUTO) 2.06 MIL/uL (4.2-6.2); RED CELL DISTRIBUTION WIDTH 19.6 % (9.0-15.0)
[2019-08-02 07:15] LABS: ANION GAP 3 (5-15); CALCIUM 8.3 mg/dL (8.4-11.0); CHLORIDE 106 mmol/L (98-107); GLUCOSE 142 mg/dL (70-99); SODIUM SERUM 140 mmol/L (136-145)
[2019-08-02 07:16] LABS: CREATININE 1.09 mg/dL (0.55-1.30); PHENYTOIN (DILANTIN) 3.3 ug/mL (10.0-20.0); UREA NITROGEN, BLOOD 30 mg/dL (8-21); VALPROIC ACID 42 ug/mL (50-100)
--- NOTE | 2019-08-02 07:44 | NUR ---
OPENING NOTE Patient resting in the bed. No acute distress. Trach intact to vent: AC=12, KS=316, FIO2=40%, PEEP=5. HOB elevated. GT intact, on Glucerna 1.5 at 70ml/hr. Skin warm and dry to touch. PICC intact to AC, no redness, no swelling, no drainage. On NS at 100ml/hr, infusing well. On contact isolation. safety measure maintained. Call light within reached. Bed locked in low position, padded side rails up, bed alarm on. Will continue to monitor.
[2019-08-02 08:00] VITALS: BP_SYST 115
--- NOTE | 2019-08-02 09:00 | NUR ---
WOUND CARE Wound care down as ordered. Patient tolerated procedure well. Safety measure maintained. Call light within reached. Continue to monitor.
[2019-08-02] MEDS: FUROSEMIDE 20 MG TABLET GT SCH ×2 (09:01→21:15)
[2019-08-02] MEDS: LANSOPRAZOLE 30 MG CAPSULE.DR GT SCH (09:01)
[2019-08-02] MEDS: FOLIC ACID 1 MG TABLET GT SCH (09:01)
[2019-08-02] MEDS: FERROUS SULFATE 300 MG/5 ML UDC GT SCH (09:02)
[2019-08-02] MEDS: DOCUSATE SODIUM 100 MG/10 ML UDC GT SCH (09:02)
[2019-08-02] MEDS: PHENYTOIN 100 MG/4 ML UDC (DILANTIN) GT SCH ×2 (09:02→21:03)
[2019-08-02] MEDS: ERGOCALCIFEROL 8000 UNITS/ML ORAL SOLUTION, 60 ML BOTTLE GT SCH (09:03)
[2019-08-02] MEDS: POTASSIUM CHLORIDE 20 MEQ/PKT PACKET PO SCH (09:04)
[2019-08-02] MEDS: BALSAM PERU/CASTOR OIL 60 GM OINT...G. TP SCH (09:06)
[2019-08-02] MEDS: HYDROCORTISONE 1%, 28.35 GM TOPICAL CREAM TP SCH ×2 (09:06→21:04)
--- NOTE | 2019-08-02 11:00 | NUR ---
ROUND Patient resting in the bed. No acute distress. Trach intact to vent. Continue on GTF, tolerated well. HOB elevated. Suprapubic catheter intact, drain gravity. Contact isolation maintained. Safety measure maintained. Call light within reached. Bed locked in low position, padded side rails up, bed alarm on. Continue to monitor.
[2019-08-02 12:07] VITALS: BP_SYST 90
--- NOTE | 2019-08-02 12:24 | NUR ---
OQ=836 No insulin coverage needed per sliding scale. Patient resting in the bed. No acute distress. HOB elevated. Trach intact to vent. GT intact, GT feeding tolerated well/ Suprapubic catheter intact, drain gravity. Continue on contact isolation. Safety measure maintained. Call light within reached. Bed locked in low position, padded side rails up, bed alarm on. Continue to monitor.
--- NOTE | 2019-08-02 12:42 | NUR ---
SEEN AND EXAMINED BY DENNIS SINGLETON.
--- NOTE | 2019-08-02 14:30 | NUR ---
ROUND Patient resting in the bed. No acute distress. HOB elevated. Trach intact to vent. GT intact, patent, continue on GTF, tolerated well. Skin warm and dry to touch. PICC line intact, IVF infusing well. Shipman drain gravity. Safety measure maintained. Call light within reached. Bed locked in low position, padded side rails up, bed alarm on. Continue to monitor.
[2019-08-02] MEDS ORDERED: EPOETIN ALFA 4,000 UNITS/ML VIAL SUBCUT ONE (16:00)
[2019-08-02 16:12] VITALS: BP_SYST 110
--- NOTE | 2019-08-02 16:15 | NUR ---
NEW GLUCERNA 1.5 BOTTLE HANG Patient resting in the bed. No acute distress. HOB elevated. Trach intact to vent. GT intact, patent, no residual, new bottle formula changed. Skin warm and dry to touch. PICC line intact, IVF infusing well. Safety measure maintained. Call light within reached. Bed locked in low position, padded side rails up, bed alarm on. Continue to monitor.
[2019-08-02] MEDS: SOD FERRIC GLUC COMPLEX/SUC 125 MG in NS 100 ML IV SCH (18:24)
--- NOTE | 2019-08-02 18:50 | NUR ---
CLOSING NOTE Patient resting in the bed. No acute distress. Trach intact to vent: AC=12, VU=929, FIO2=40%, PEEP=5. HOB elevated. GT intact, on Glucerna 1.5 at 70ml/hr, tolerated well. Skin warm and dry to touch. PICC intact to AC, no redness, no swelling, no drainage. Covered with clean and dry transparent dressing. On NS at 100ml/hr, infusing well. All needs met. o seizure activity noted during shift. On contact isolation. Safety measure maintained. Call light within reached. Bed locked in low position, padded side rails up, bed alarm on. Will endorse to night nurse.
--- NOTE | 2019-08-02 19:40 | NUR ---
Opening notes Pt asleep, opens eyes, Mechanical Vent dependant settings AC 12, FIO2 40%, TV 500, Peep5. HOB maintained elevated. GT feeding Glucerna 1.5 running at 70cc/hr, no residual noted. Suprapubic catheter intact and secured with dark yellow urine. IVF infusing at ordered rate AC PICC line double lumen, dressing C/D/I. Kirill foot 4+ edematous noted, dressing to kirill lower extremities C/D/I. Seizure precaution in place. Contact isolation maintained. Bed low, locked, siderails up x3. To monitor.
[2019-08-02 20:00] VITALS: BP_SYST 114
[2019-08-02] MEDS: NACL 0.9% 1,000 ML IV SCH (21:04)
[2019-08-02] MEDS: ENOXAPARIN SODIUM 30 MG/0.3 ML SYRINGE SUBCUT SCH (21:06)
--- NOTE | 2019-08-02 21:15 | NUR ---
Rounds Pt asleep, opens eyes. Meds passed as scheduled via GT. IVF infusing at ordered rate AC PICC line. Pt repositioned. Seizure precaution and contact isolation maintained. To monitor.
--- NOTE | 2019-08-03 00:35 | NUR ---
Rounds Pt asleep, no s/s distress noted. No changes in mechanical ventilation settings noted. IVF infusing at ordered rate AC PICC line double lumen. Suprapubic catheter remains secured and intact. GT feeding running at ordered rate, water flushes 100ml given as ordered. Pt on low air mattress. Repositioned. To monitor. Contact isolation maintained.
[2019-08-03 00:41] VITALS: BP_SYST 105
--- NOTE | 2019-08-03 02:05 | NUR ---
Rounds Pt asleep, no s/s distress noted. No changes in Mechanical ventilation. HOB maintained elevated. GT feeding Glucerna 1.5 running at 70cc/hr. To monitor.
[2019-08-03] MEDS: IPRATROPIUM/ALBUTEROL SULFATE 3 ML AMPUL.NEB (DUONEB) INH SCH ×6 (02:22→23:09)
--- NOTE | 2019-08-03 05:30 | NUR ---
Oral suction Oral suction provided. Obtained large amount of frothy white secretion. Pt tolerated well. Changed wall suction canister noted 900ml.
--- NOTE | 2019-08-03 05:45 | NUR ---
Wound care Pt asleep, opens eyes. GT feeding Glucerna 1.5 infusing at 70cc/hr, pt tolerating well. No residual noted. Pt had a bowel movement this AM. Pericare provided. Sacral dressings x2 changed. Hydrocortisone cream applied to erythema on the back. Suprapubic catheter intact dressing changed. Noted some urine leaking from Penis. To monitor.
[2019-08-03] MEDS: PIPERACILLIN/TAZO 4.5GM/DEX-IS 100 ML IV SCH ×3 (05:46→21:13)
[2019-08-03] MEDS: LEVOTHYROXINE SODIUM 0.05 MG TABLET PO SCH (06:19)
[2019-08-03] MEDS: VALPROIC ACID ORAL SYRUP 250 MG/5 ML UDC GT SCH ×2 (06:19→21:14)
--- NOTE | 2019-08-03 06:19 | NUR ---
Closing notes Pt asleep, opens eyes. No changes in mechanical vent settings. HOB maintained elevate. GT feeding running at ordered rate. Pt tolerating feeding well. Water flushes given as scheduled. Kirill lower legs dressing C/D/I. Suprapubic catheter intact and secured. IVF/antibiotics infusing at ordered rate AC PICC line double lumen, dressing C/D/I. Seizure precation maintained. Pt contact isolation maintained. Bed low, locked, siderails up. To endorse to AM nurse.
--- NOTE | 2019-08-03 07:34 | NUR ---
OPENING NOTE Patient resting in the bed. No acute distress. HOB elevated. Trach intact to vent: AC=12, PY=248, FIO2=40%, PEEP=5. GT intact, on Glucerna 1.5 at 70ml/hr. Skin warm and dry to touch. PICC intact to AC, no redness, no swelling, no drainage. Covered with clean and dry transparent dressing. On NS at 30ml/hr, infusing well. Suprapubic catheter intact, drain gravity. On contact isolation. Safety measure maintained. Call light within reached. Bed locked in low position, padded side rails up, bed alarm on. Will continue to monitor.
[2019-08-03 08:00] VITALS: BP_SYST 105
[2019-08-03] MEDS: FERROUS SULFATE 300 MG/5 ML UDC GT SCH (09:36)
[2019-08-03] MEDS: PHENYTOIN 100 MG/4 ML UDC (DILANTIN) GT SCH ×2 (09:36→21:14)
[2019-08-03] MEDS: ERGOCALCIFEROL 8000 UNITS/ML ORAL SOLUTION, 60 ML BOTTLE GT SCH (09:37)
[2019-08-03] MEDS: DOCUSATE SODIUM 100 MG/10 ML UDC GT SCH (09:37)
[2019-08-03] MEDS: FOLIC ACID 1 MG TABLET GT SCH (09:38)
[2019-08-03] MEDS: LANSOPRAZOLE 30 MG CAPSULE.DR GT SCH (09:38)
[2019-08-03] MEDS: BALSAM PERU/CASTOR OIL 60 GM OINT...G. TP SCH (09:39)
[2019-08-03] MEDS: HYDROCORTISONE 1%, 28.35 GM TOPICAL CREAM TP SCH ×2 (09:39→21:23)
--- NOTE | 2019-08-03 09:40 | NUR ---
WOUND CARE Wound care done as ordered. Patient tolerated procedure well. PICC line intact, IVF infusing well. Continue on contact isolation. Suprapubic catheter intact, drain gravity. Safety measure maintained. Call light within reached. Bed locked in low position, padded side rails up, bed alarm on. Continue to monitor.
[2019-08-03] MEDS: FUROSEMIDE 20 MG TABLET GT SCH ×2 (09:45→21:18)
--- NOTE | 2019-08-03 10:35 | NUR ---
BILLIE SPEARS CONSERVATOR CALLED AND LEFT MESSAGE TO PATIENT'S CONSERVATOR TO CALL THE HOSPITAL SOON POSSIBLE
--- NOTE | 2019-08-03 11:20 | NUR ---
ROUND Patient resting in the bed with eyes closed. No acute distress. Trach intact to vent. Continue on GTF, tolerated well. HOB elevated. Suprapubic catheter intact, drain gravity. Contact isolation maintained. Safety measure maintained. Call light within reached. Bed locked in low position, padded side rails up, bed alarm on. Continue to monitor.
[2019-08-03 12:47] VITALS: BP_SYST 104
--- NOTE | 2019-08-03 13:25 | NUR ---
ROUND Patient resting in the bed with eyes closed. No acute distress. HOB elevated. Trach intact to vent. Continue on GTF, tolerated well. Suprapubic catheter intact, drain gravity. Contact isolation maintained. Safety measure maintained. Bed locked in low position, padded side rails up, bed alarm on. Call light within reached. Continue to monitor.
[2019-08-03] MEDS ORDERED: PHENYTOIN 100 MG/4 ML UDC (DILANTIN) GT ONE (15:30)
[2019-08-03] MEDS ORDERED: VALPROIC ACID ORAL SYRUP 250 MG/5 ML UDC GT ONE (15:30)
[2019-08-03] MEDS: NACL 0.9% 1,000 ML IV SCH (15:41)
--- NOTE | 2019-08-03 15:42 | NUR ---
SEEN AND EXAMINED BY LAZARO LOZADA WITH ORDER RECEIVED.
[2019-08-03] MEDS ORDERED: MULTIVIT-MINERALS/FERROUS GLUC 15 ML UDC GT ONE (15:45)
--- NOTE | 2019-08-03 16:22 | NUR ---
Nutrition F/U (short note d/t high patient load) RD reviewed pt's current EMR including diet Hx, physician notes, nursing notes, pertinent labs/meds/procedures, care trends, and care activity. Current Nutrition Support Order: Glucerna 1.5 at 70 ml/hr, Caden BID, Free Water Flush: 100 ml Q6h via GT x6 days Pt was seen w/ TF infusing as per physician order. Per RN, pt has been tolerating TF well, no residuals, and Caden x1 was administered this morning. Current TF regimen remains appropriate. Pt remains at high nutritional risk; F/U within 2-3 days.
[2019-08-03] MEDS: SOD FERRIC GLUC COMPLEX/SUC 125 MG in NS 100 ML IV SCH (16:39)
--- NOTE | 2019-08-03 16:40 | NUR ---
DR. ANAYA, AUTAR Dr. Anaya in the unit, informed to Dr. Anaya regarding the conservator still not available due to holiday, message left and will follow up tomorrow.
[2019-08-03 16:42] VITALS: BP_SYST 113
--- NOTE | 2019-08-03 17:32 | NUR ---
BL=716 No insulin coverage needed per sliding scale.
--- NOTE | 2019-08-03 18:29 | NUR ---
CLOSING NOTE Patient resting in the bed. No acute distress. Trach intact to vent. HOB elevated all the time. GT intact, on Glucerna 1.5 at 70ml/hr, tolerated well. No s/s of aspiration noted. Skin warm and dry to touch. PICC intact to AC, no redness, no swelling, no drainage. Covered with clean and dry transparent dressing. On NS at 30ml/hr, infusing well. All needs met. No seizure activity noted during shift. Muscle twisting noted during shift. On contact isolation. Safety measure maintained. Call light within reached. Bed locked in low position, padded side rails up, bed alarm on. Will endorse to night nurse.
[2019-08-03 19:30] VITALS: BP_SYST 130
--- NOTE | 2019-08-03 19:55 | NUR ---
INITIAL NOTE AT INITIAL ASSESSMENT, PATIENT IS RESTING IN BED, STABLE, NO SIGNS OF RESPIRATORY DISTRESS. PATIENT IS UNABLE TO DEMONSTRATE CORRECT USAGE OF CALL LIGHT DUE TO COGNITIVE IMPAIRMENT. FALL, SAFETY, ISOLATION, SEIZURE, RESPIRATORY, AND ASPIRATION PRECAUTIONS WILL BE IN PLACE THROUGHOUT THE SHIFT.
[2019-08-03] MEDS: ENOXAPARIN SODIUM 30 MG/0.3 ML SYRINGE SUBCUT SCH (21:19)
--- NOTE | 2019-08-03 21:35 | NUR ---
TRANSFER OF CARE BEDSIDE REPORT GIVEN TO BENJAMIN SINCLAIR AT THIS TIME. PATIENT HAS ALREADY BEEN GIVEN SCHEDULED MEDICATIONS FOR THIS TIME. PATIENT IS RESTING IN BED, STABLE, NO SIGNS OF RESPIRATORY DISTRESS. BED IS LOCKED, ALARMED, AND AT THE LOWEST LEVEL. FALL, SAFETY, ISOLATION, RESPIRATORY, AND ASPIRATION PRECAUTIONS HAVE BEEN IN PLACE THROUGHOUT THE SHIFT.
--- NOTE | 2019-08-03 22:00 | NUR ---
Patient resting in the bed with yes closed. No acute distress noted. HOB elevated >30 degrees. Trach to vent functioning properly at: AC=12, KS=187, FIO2=40%, PEEP=5. GT intact, on Glucerna 1.5 at 70ml/hr. Skin warm and dry to touch. PICC intact to AC, no redness, no swelling, no drainage. Covered with clean and dry transparent dressing. On NS at 30ml/hr, infusing well. Suprapubic catheter intact, draining to gravity. On contact isolation. Safety precautions in place and maintained. Call light within reach. Bed locked in low position, padded side rails for SZ precautions, bed alarm on. Monitoring continued. Addendum: 08/04/19 at 0803 by Thirty two organ pipe maker metal Patient resting in the bed with eyes closed. No acute distress noted. HOB elevated >30 degrees. Trach to vent functioning properly at: AC=12, ID=[id number], FIO2=40%, PEEP=5. GT intact, on Glucerna 1.5 at 70ml/hr. Skin warm and dry to touch. PICC intact to AC, no redness, no swelling, no drainage. Covered with clean and dry transparent dressing. On NS at 30ml/hr, infusing well. Suprapubic catheter intact, draining to gravity. On contact isolation. Safety precautions in place and maintained. Call light within reach. Bed locked in low position, padded side rails for SZ precautions, bed alarm on. Monitoring continued.
[2019-08-03 23:35] VITALS: BP_SYST 110
[2019-08-03] MEDS: LORazepam 2 MG/ML VIAL IVP PRN (23:36)
--- NOTE | 2019-08-03 23:36 | NUR ---
Pt noted to have SZ like activity with face, abd, and bilateral arms jerking/twitching. Ativan 1 mg IVP administered per MD PRN orders. VS stable. No injury sustained. Close observation at this time.
--- NOTE | 2019-08-04 | NUR ---
No more SZ like activity at this time. Pt resting in bed with eyes closed. Called Dr. White to report that pt had SZ like activity, Ativan adminstered and that pt also had small amount dark red blood in stool with H/H=7.5/22. Awaiting response.
--- NOTE | 2019-08-04 00:30 | NUR ---
No response from Dr. White. Second attempt to reach Dr. White at this time. Awaiting response. Still No more SZ like activity at this time. Pt resting in bed with eyes closed.
--- NOTE | 2019-08-04 01:00 | NUR ---
Still no response from Dr. White. Notified Charge Nurse, Dean of pt's SZ like activity and Ativan administration, also notified of small amount of dark red blood in stool with H/H=7.5/22. VS stable.
[2019-08-04 01:49] VITALS: BP_SYST 112
[2019-08-04] MEDS: VALPROIC ACID ORAL SYRUP 250 MG/5 ML UDC GT SCH ×4 (03:13→22:17)
[2019-08-04] MEDS: IPRATROPIUM/ALBUTEROL SULFATE 3 ML AMPUL.NEB (DUONEB) INH SCH ×6 (03:45→23:13)
[2019-08-04] MEDS: LEVOTHYROXINE SODIUM 0.05 MG TABLET PO SCH (06:52)
[2019-08-04] MEDS: PIPERACILLIN/TAZO 4.5GM/DEX-IS 100 ML IV SCH ×3 (06:52→21:36)
[2019-08-04 07:26] LABS: BASOPHILS # (AUTO) 0.1 K/uL (0.0-0.2); BASOPHILS % (AUTO) 0.5 % (0.0-2.0); EOSINOPHILS # (AUTO) 0.3 K/uL (0.0-0.4); EOSINOPHILS % (AUTO) 2.8 % (0.0-4.0); HEMATOCRIT 23.4 % (36-54); HEMOGLOBIN 7.5 g/dL (14.0-18.0); LYMPHOCYTES # (AUTO) 2.3 K/uL (1.0-5.5); LYMPHOCYTES % (AUTO) 20.9 % (20.5-51.5); MEAN CORPUSCULAR HEMOGLOBIN 36 pg (27-31); MEAN CORPUSCULAR HGB CONC 32 % (32-36); MEAN CORPUSCULAR VOLUME 112 fL (79.0-98.0); MONOCYTES # (AUTO) 1.1 K/uL (0.0-1.0); MONOCYTES % (AUTO) 10.1 % (1.7-9.3); NEUTROPHILS # (AUTO) 7.1 K/uL (1.8-7.7); NEUTROPHILS % (AUTO) 65.7 % (40.0-70.0); PLATELET COUNT (AUTO) 203 K/uL (130-430); RED BLOOD CELL COUNT(AUTO) 2.09 MIL/uL (4.2-6.2); WHITE BLOOD COUNT (AUTO) 10.8 K/uL (4.8-10.8)
--- NOTE | 2019-08-04 07:30 | NUR ---
Endorsement OF CARE BEDSIDE REPORT GIVEN TO BENJAMIN Francis AT THIS TIME. PATIENT IS RESTING IN BED, STABLE, NO SIGNS OF RESPIRATORY DISTRESS. BED IS LOCKED, ALARMED, AND AT THE LOWEST LEVEL. FALL, SAFETY, ISOLATION, RESPIRATORY, AND ASPIRATION PRECAUTIONS HAVE BEEN IN PLACE THROUGHOUT THE SHIFT.
--- NOTE | 2019-08-04 07:30 | NUR ---
RN INITIAL NOTES RECEIVED PATIENT IN BED NON VERBAL NO DISTRESS WITH TRACH ON MECH VENT HOB ELEVATED , WITH PICC LINE TO RT UPPER ARM X 2 LUMEN, WITH GTUBE OFF ENDORSED PER RN REPORT CHARGE NURSE ADVISED NPO TO MAINTAIN FOR POSSIBLE LEFT BKA TODAY , PENDING CONSENT FROM CONSERVATOR, WITH SUPRAPUBIC CATH INTACT , WITH GENERALIZED SWELLING TO EXTREMETIES, KEEP ARM ELEVATED , BOTH HEELZ UP FLOAT, WITH INTACT DRESSING , ADVISED REAL ESTATE REPRESENTATIVE TO LEAVE A MESSAGE TO CONSERVATOR FOR THE CONSENT , SUCTIONING PRN DONE
[2019-08-04 07:45] VITALS: BP_SYST 117
[2019-08-04 07:53] LABS: RED CELL DISTRIBUTION WIDTH 20.3 % (9.0-15.0)
[2019-08-04 07:58] LABS: ALANINE AMINOTRANSFERASE 9 U/L (12-78); ALBUMIN 1.7 g/dL (3.4-4.8); ANION GAP 3 (5-15); ASPARTATE AMINOTRANSFERASE 15 U/L (10-37); CALCIUM 8.5 mg/dL (8.4-11.0); CHLORIDE 107 mmol/L (98-107); CREATININE 0.95 mg/dL (0.55-1.30); GLUCOSE 116 mg/dL (70-99); PHENYTOIN (DILANTIN) 3.3 ug/mL (10.0-20.0); POTASSIUM 5.2 mmol/L (3.5-5.1); SODIUM SERUM 140 mmol/L (136-145); TOTAL BILIRUBIN 0.4 mg/dL (0.0-1.0); UREA NITROGEN, BLOOD 34 mg/dL (8-21); VALPROIC ACID 32 ug/mL (50-100)
[2019-08-04 08:00] VITALS: BP_SYST 115
--- NOTE | 2019-08-04 08:30 | NUR ---
LEFT MESSAGE RE: CONSERVATOR CONSENT NEEDED Left detailed, private, Urgent message to [place] Francesca Bishop ([phone]) re: need for pt's conservator to give consent for pt to have Left BKA. Also left phone number to hospital ([phone]) with pt name, location and nurse to ask for (BENJAMIN Francis) for day shift today. Pt has been NPO with TF off since 0300 this morning for possible surgery today. Endorsed to BENJAMIN Francis.
[2019-08-04] MEDS: MULTIVIT-MINERALS/FERROUS GLUC 15 ML UDC GT SCH ×2 (09:00→11:52)
[2019-08-04] MEDS: PHENYTOIN 100 MG/4 ML UDC (DILANTIN) GT SCH ×3 (09:00→21:39)
[2019-08-04] MEDS: FUROSEMIDE 20 MG TABLET GT SCH ×2 (09:00→11:55)
[2019-08-04] MEDS: DOCUSATE SODIUM 100 MG/10 ML UDC GT SCH (09:00)
[2019-08-04] MEDS: FOLIC ACID 1 MG TABLET GT SCH ×2 (09:00→11:51)
[2019-08-04] MEDS: LANSOPRAZOLE 30 MG CAPSULE.DR GT SCH ×2 (09:00→11:50)
[2019-08-04] MEDS: ERGOCALCIFEROL 8000 UNITS/ML ORAL SOLUTION, 60 ML BOTTLE GT SCH ×2 (09:00→11:53)
[2019-08-04] MEDS: FERROUS SULFATE 300 MG/5 ML UDC GT SCH ×2 (09:00→11:51)
--- NOTE | 2019-08-04 09:59 | NUR ---
CONSERVATOR DL Cartwright CONSERVATOR RETURNED CALL AND DISCUSSED WITH HER PLAN OF LEFT BKA BY THE SURGEON, ADVISED TO FAX OVER THE FORMS TO BE SIGNRD BUT SHE WANTS TO SPEAK WITH THE SURGEON BEFORE SHE SIGN THE CONSENT , KENDELL GIBBONS MADE REQUESTED TO PAGE DR MCNEIL FOR THE CONSERVATOR TO TALK , WILL FOLLOW UP , MAINTAINED NPO/NOTHING PER GTUBE AT THIS TIME ENDORSED BY NIGHT NURSE , VERIFIED WITH AM CHARGE NURSE NO MEDS GIVEN .
--- NOTE | 2019-08-04 10:00 | NUR ---
ROUNDS PATIENT AT THIS TIME ASLEEP NO DISTRESS AND WILL CONT TO MONITOR
--- NOTE | 2019-08-04 10:30 | NUR ---
dr etta richter returned call informed conservator will not sign the consent unless she speak with him , said to have conservator call him
--- NOTE | 2019-08-04 11:15 | NUR ---
CONSERVATOR GABRIELE CONSERVATOR RETURNED CALL AND SHE SAID SHE SPOKE WITH DR MCNEIL AND THE LF BKA WILL NOT BE DONE TILL AFTER THE HOLIDAY BUT CONSERVATOR WILL FAXED THE SIGNED CONSENT AND TO CALL HER BACK WHEN THERES A SPECIFIC DATE OF SURGERY , CHARGE NURSE MADE AWRE , RESUMED PATIENT GTUBE FEEDING AND GIVEN ANTI SEIZURE MEDS , WILL CONT CARE
[2019-08-04] MEDS: HYDROCORTISONE 1%, 28.35 GM TOPICAL CREAM TP SCH ×2 (12:15→21:38)
[2019-08-04] MEDS: BALSAM PERU/CASTOR OIL 60 GM OINT...G. TP SCH (12:16)
[2019-08-04 12:35] VITALS: BP_SYST 121
--- NOTE | 2019-08-04 14:00 | NUR ---
CONSENT CONSERVATOR DL CALLED AND STATED SHE SENT THE SIGNED CONSENT ALREADY , WILL INFORM DR EUGENE AND DR MCNEIL
[2019-08-04] MEDS ORDERED: SODIUM POLYSTYRENE SULFONATE 15 GM/60 ML UDBTL GT ONE (14:45)
--- NOTE | 2019-08-04 15:59 | NUR ---
DR MCNEIL CALLED DR MCNEIL INFORMED COCO SANCHEZ MD SAID HE WILL NO IT TIL AFTER NEW YEAR, INFORMED DR EUGENE ABOUT IT AND DR EUGENE CALLED DR MCNEIL DC PLANNING ORDERED
--- NOTE | 2019-08-04 16:09 | NUR ---
Discharge Planning: Pt has order to DC back to sub acute unit; [facility] has [facility]ed pt[facility] information to [facility] ([phone] [phone]). [facility] on will call with [facility] ([phone]). Addendum: 08/04/19 at 1625 by Kinza Dozire LCSW ZAN placed call to [facility] and the admissions staff has either "gone home for the day or is in a meeting"; CM/ZAN will follow up tomorrow (08/05/19).
[2019-08-04 16:15] VITALS: BP_SYST 110
[2019-08-04] MEDS ORDERED: EPOETIN ALFA 10,000 UNITS/ML VIAL SUBCUT ONE (17:30)
--- NOTE | 2019-08-04 18:52 | NUR ---
ENDORSEMENT WILL CONT CARE NO FACIAL GRIMACE NOTED , PATIENT MOSTLY WITH CLOSED EYES, NO ASPIRATION NOTED GTUBE CONT DR EUGENE IS AWARE AND SAID TO CONT SAME MEDS AND FEEDING , PROCRIT SQ GIVEN AND WOUND DRESSING DONE AND BACK AND BUTTOCKS STILL WITH REDNESS / MOISTURE CONT WITH TX , KEEP AREA CLEAN, REPOSITIONED , STILL WITH MECH VENT SATING 99%, KEEP HOB ELEVATED , SUPRAPUBIC CATH INTACT AND DRESSING DONE, WITH PICC LINE TO RT UPPER ARM X 2 LUMEN INFUSING IVF ORDERED . BOTH LOWER FEET FLOATED ,ASSISTED ., STILL FOR DC IN AM, AWAITING FOR RESPONSE FROM THE FACILITY
[2019-08-04 20:00] VITALS: BP_SYST 94
--- NOTE | 2019-08-04 20:00 | NUR ---
Patient resting in the bed without any twitching movements. No acute distress noted. HOB elevated >30 degrees. Trach to vent functioning properly at: AC=12, QY=269, FIO2=40%, PEEP=5. GT intact, on Glucerna 1.5 at 70ml/hr. Skin warm and dry to touch. PICC intact to AC, no redness, no swelling, no drainage. Covered with clean and dry transparent dressing. On NS at 30ml/hr, infusing well. Suprapubic catheter intact, draining to gravity. On contact isolation. Safety precautions in place and maintained. Call light within reach. Bed locked in lowest position, padded side rails for SZ precautions, bed alarm on. All safety precautions in place. Monitoring continued.
[2019-08-04] MEDS: NACL 0.9% 1,000 ML IV SCH (21:30)
[2019-08-04] MEDS: ENOXAPARIN SODIUM 30 MG/0.3 ML SYRINGE SUBCUT SCH (21:38)
--- NOTE | 2019-08-04 22:00 | NUR ---
Pt turned and repositioned. No distress noted. No SZ activity noted. All safety precautions and SZ precautions maintained. Monitoring continued.
--- NOTE | 2019-08-05 | NUR ---
Pt turned and repositioned. No distress noted. No SZ activity noted. All safety precautions and SZ precautions maintained. VS stable. Monitoring continued.
[2019-08-05 00:59] VITALS: BP_SYST 118
--- NOTE | 2019-08-05 02:00 | NUR ---
Pt turned and repositioned. No distress noted. No SZ activity noted. All safety precautions and SZ precautions maintained. Monitoring continued.
[2019-08-05] MEDS: VALPROIC ACID ORAL SYRUP 250 MG/5 ML UDC GT SCH ×4 (03:25→21:02)
[2019-08-05] MEDS: IPRATROPIUM/ALBUTEROL SULFATE 3 ML AMPUL.NEB (DUONEB) INH SCH ×6 (03:31→23:41)
--- NOTE | 2019-08-05 04:00 | NUR ---
Pt turned and repositioned. No distress noted. No SZ activity noted. All safety precautions and SZ precautions maintained. VS stable. Monitoring continued.
[2019-08-05] MEDS: LEVOTHYROXINE SODIUM 0.05 MG TABLET PO SCH (06:15)
[2019-08-05] MEDS: PIPERACILLIN/TAZO 4.5GM/DEX-IS 100 ML IV SCH ×3 (06:16→21:04)
--- NOTE | 2019-08-05 08:00 | NUR ---
RN INITIAL NOTES RECEIVED PATIENT IN BED WITH CLOSED EYES, WITH GTUBE TOLERATING HOB ELEVATED ,WITH PICC LINE TO RT UPPER ARM IVF INFUSING ORDERED , WITH TRACH TO MECH VENT , SATING 99% , VITALS SIGNS STABLE, WITH SUPRAPUBIC CATH INTACT DRAINING , SUCTIONING AND BREATHING TREATMENT TOLERATED, WILL CONT PLAN OF CARE
[2019-08-05] MEDS: DOCUSATE SODIUM 100 MG/10 ML UDC GT SCH (08:57)
[2019-08-05 09:20] VITALS: BP_SYST 112
[2019-08-05] MEDS ORDERED: FERROUS SULFATE 300 MG/5 ML UDC GT ONE (09:45)
[2019-08-05] MEDS ORDERED: ERGOCALCIFEROL 8000 UNITS/ML ORAL SOLUTION, 60 ML BOTTLE GT ONE (09:45)
[2019-08-05] MEDS: PHENYTOIN 100 MG/4 ML UDC (DILANTIN) GT SCH ×3 (09:56→21:02)
[2019-08-05] MEDS: FUROSEMIDE 20 MG TABLET GT SCH ×2 (09:57→21:03)
[2019-08-05] MEDS: HYDROCORTISONE 1%, 28.35 GM TOPICAL CREAM TP SCH ×3 (09:59→21:25)
[2019-08-05] MEDS: BALSAM PERU/CASTOR OIL 60 GM OINT...G. TP SCH (09:59)
[2019-08-05] MEDS ORDERED: FUROSEMIDE 20 MG TABLET GT ONE (10:00)
[2019-08-05] MEDS ORDERED: MULTIVIT-MINERALS/FERROUS GLUC 15 ML UDC GT ONE (10:00)
[2019-08-05] MEDS ORDERED: LANSOPRAZOLE 30 MG CAPSULE.DR GT ONE (10:00)
[2019-08-05] MEDS ORDERED: FOLIC ACID 1 MG TABLET GT ONE (10:00)
--- NOTE | 2019-08-05 10:00 | NUR ---
ROUNDS PATIENT CONT WITH SUCTIONING PRN , HOB ELEVATED NO ASPIRATION, PATIENT , NO DISTRESS
[2019-08-05] MEDS: NACL 0.9% 1,000 ML IV SCH (10:29)
[2019-08-05 12:28] VITALS: BP_SYST 108
[2019-08-05 13:33] LABS: BASOPHILS # (AUTO) 0.1 K/uL (0.0-0.2); BASOPHILS % (AUTO) 0.7 % (0.0-2.0); EOSINOPHILS # (AUTO) 0.3 K/uL (0.0-0.4); EOSINOPHILS % (AUTO) 3.1 % (0.0-4.0); HEMATOCRIT 23.2 % (36-54); HEMOGLOBIN 7.4 g/dL (14.0-18.0); LYMPHOCYTES % (AUTO) 21.3 % (20.5-51.5); MEAN CORPUSCULAR HEMOGLOBIN 36 pg (27-31); MEAN CORPUSCULAR HGB CONC 32 % (32-36); MEAN CORPUSCULAR VOLUME 111 fL (79.0-98.0); NEUTROPHILS # (AUTO) 6.2 K/uL (1.8-7.7); NEUTROPHILS % (AUTO) 64.9 % (40.0-70.0); PLATELET COUNT (AUTO) 222 K/uL (130-430); RED BLOOD CELL COUNT(AUTO) 2.08 MIL/uL (4.2-6.2); WHITE BLOOD COUNT (AUTO) 9.6 K/uL (4.8-10.8)
[2019-08-05 13:42] LABS: ANION GAP 7 (5-15); CALCIUM 8.5 mg/dL (8.4-11.0); CHLORIDE 110 mmol/L (98-107); CREATININE 0.81 mg/dL (0.55-1.30); GLUCOSE 126 mg/dL (70-99); POTASSIUM 4.7 mmol/L (3.5-5.1); SODIUM SERUM 145 mmol/L (136-145); UREA NITROGEN, BLOOD 38 mg/dL (8-21)
--- NOTE | 2019-08-05 13:54 | NUR ---
Discharge Planning: INDUSTRIAL EDUCATION INSTRUCTOR placed several calls to [facility] this morning and was unable to speak to anyone in admissions. INDUSTRIAL EDUCATION INSTRUCTOR placed another call to [facility] and spoke to Michael who stated that their sub acute unit is full and they do not have a bed for pt. [facility] has updated CM.
--- NOTE | 2019-08-05 14:01 | NUR ---
ROUNDS PATIENT MEDS GIVEN IV ATB NO AR /SE NOTED
--- NOTE | 2019-08-05 16:00 | NUR ---
DR JABIER MOMIN CAME DISCUSSED PATIENT CONDITION , CONT SAME CARE AND STILL FOR DC IRIZARRY ONCE WITH AVAIL ROOM , CONT MEDS AND TREATMENT AT THIS TIME
[2019-08-05 16:02] VITALS: BP_SYST 109
--- NOTE | 2019-08-05 17:30 | NUR ---
RT NOTES - SKIN TEAR AROUND NECK INFORMED RN LYDIA SKIN TEARS AROUND NECK AREA NOTED WHEN GIVING TRACH CARE. PLACED NON-ADHESIVE FOAM DRESSING UNDER TRACH TIE AT THIS TIME.
[2019-08-05 19:00] VITALS: BP_SYST 117
--- NOTE | 2019-08-05 19:00 | NUR ---
ENDORSEMENT WILL ENDORSED TO RN OTILIO PATIENT TOLERATED GTUBE FEEDING , STILL WITH MECH VENT , SUCTIONING DONE PRN WITH WHITESH SECRETIONS, HOB ELEVATED NO ASPIRATION NOTED , WOUND DRESSING DONE , WITH SUPRAPUBIC ATH INTACT , WITH PICC LINE INTACT, WITH IVF INFUSING AND NO ADVERSE REACTION NOTED ,WOUND DRESSING DONE , STILL FOR DC PALN IN AM ONCE WITH AVAIL BED ENDORSED TO NEXT SHIFT RN NEW OCCURENCE OF SKIN TEAR AROUND NECK AREA WHERE THE SOFT COLLAR IS APPLIED BY THE RT TO HOLD THE TRACH, WILL START TX BY THE RECOVERY ANALYST NURSE , CARE ENDORSED .
--- NOTE | 2019-08-05 19:15 | NUR ---
change of shift.pt.presents isolation status;contact;mdro;wound,microsoft bi architect;sputum.pt presents trach/vent.settings;tv;500,fio2%=40%,a/c;12,p;5.pt;tolerating the settings.pt presents picc line;location;rt.bicept.iv fluids infusing.pt ptrste g-0trube;intact.g-tube feed infusing.pt.presents supra-pubic cath;intact;pattern;urine content present.call light/telephone w/in reach of the pt.
[2019-08-05 20:00] VITALS: BP_SYST 117
--- NOTE | 2019-08-05 20:00 | NUR ---
pt.assessed.v/s assessed;values w/in normal limits.vent setting reviewed;pt.tolerating the vent settings;02-sat%=100%. picc line intact;patent;iv fluids infusing.g-tube intact;patent;g-tube feed infusing.supra-pubic cath intact;patent;urine content present. pt.assessed for cleanliness.pt repositioned.call light/telephone placed w/in reach of the pt.
--- NOTE | 2019-08-05 21:00 | NUR ---
2100pmedications administered via the g-tube.the medications administer w/out resistance.g-tube intact;patent. call light/telephone paced w/in reach of the pt.
[2019-08-05] MEDS: ENOXAPARIN SODIUM 30 MG/0.3 ML SYRINGE SUBCUT SCH (21:07)
--- NOTE | 2019-08-05 22:00 | NUR ---
pt.assessed.pt.assessed for cleanliness.pt repositioned.i have attended to the oral/trach care.i have attended to the oral/trach suctioning. picc line;intact;patent;iv fluids infusing.g-tube intact;patent;g-tube feed infusing.supra-pubic cath intact;patent;urine content preset.o2-sat%=100%.CALL LiGHT/TELePHOnE PLaCED W/IN REACH OF TH PT.
--- NOTE | 2019-08-06 | NUR ---
pt.assessed.v/s assessed;values w/in normal limits.vent settings reviewed.pt tolerating the vent settings.i have attended to the oral/trach suctioning.i have attended to the oral/trach care.picc line intact;patent;iv fluids infusing.g-tube intact;patent;g-tube feed infusing.supra-pubic cath intact;patent;urine content present.pt.assessed for cleanliness.pt repositioned.call light/telephone placed w/in the reach of the pt. Addendum: 08/06/19 at 0050 by Krishna Roman RN o2-sat%=100%.
[2019-08-06 01:46] VITALS: BP_SYST 102
--- NOTE | 2019-08-06 02:00 | NUR ---
pt.assessed.pt.assessed for cleanliness.pt.repositioned.i have attended to the oral/trach care.i have attended to the oral/trach suctioning. picc line intact;patent;iv fluids infusing.g-tube intact;patent;g-tube feed infusing.supra-pubic cath intact;patent;urine content present.02-sat%=100%.call light/telephone placed w/in reach of the pt.
[2019-08-06] MEDS: IPRATROPIUM/ALBUTEROL SULFATE 3 ML AMPUL.NEB (DUONEB) INH SCH ×6 (02:47→23:18)
--- NOTE | 2019-08-06 04:00 | NUR ---
pt.assessed.pt.assessed for cleanliness.pt.repositioned.i have attended to the oral/trach care.i have attended to the oral/trach suctioning.picc line intact;patent;iv fluids infusing.g-tube intact;patent g-tube feed infusing.supra-pubic cath intact;patent;urine content present.general status stable.respiratory status stable;lo2-sat%=100%.call light/telephone placed w/in reach of the pt.
[2019-08-06] MEDS: VALPROIC ACID ORAL SYRUP 250 MG/5 ML UDC GT SCH ×4 (05:10→22:35)
[2019-08-06] MEDS: LEVOTHYROXINE SODIUM 0.05 MG TABLET PO SCH (05:45)
[2019-08-06] MEDS: PIPERACILLIN/TAZO 4.5GM/DEX-IS 100 ML IV SCH ×3 (05:45→22:37)
--- NOTE | 2019-08-06 06:14 | NUR ---
pt.assessed.pt.assessed for cleanliness.pt.cleaned.pt.repositioned.i have attended to the oral/trach care.i have attended to the oral/trach suctioning.g-tube intact;patent;g-tube feed infusing.picc line intact;patent iv fluids infusing.supra-pubic cath intact;patent;urine content present.call light/telephone placed w/in reach of the pt.
--- NOTE | 2019-08-06 07:12 | NUR ---
Opening Note Received report from restaurant shift supervisor RN. Received pt nonverbal, trach to vent. Noted multiple skin issues. No obvious signs of pain or distress noted.
[2019-08-06 08:00] VITALS: BP_SYST 103
[2019-08-06 08:24] LABS: BASOPHILS # (AUTO) 0.1 K/uL (0.0-0.2); BASOPHILS % (AUTO) 0.7 % (0.0-2.0); EOSINOPHILS # (AUTO) 0.5 K/uL (0.0-0.4); EOSINOPHILS % (AUTO) 4.9 % (0.0-4.0); HEMATOCRIT 25.7 % (36-54); HEMOGLOBIN 8.3 g/dL (14.0-18.0); LYMPHOCYTES # (AUTO) 2.4 K/uL (1.0-5.5); LYMPHOCYTES % (AUTO) 25.2 % (20.5-51.5); MEAN CORPUSCULAR HEMOGLOBIN 36 pg (27-31); MEAN CORPUSCULAR HGB CONC 32 % (32-36); MEAN CORPUSCULAR VOLUME 113 fL (79.0-98.0); MONOCYTES # (AUTO) 1.2 K/uL (0.0-1.0); MONOCYTES % (AUTO) 13.1 % (1.7-9.3); NEUTROPHILS # (AUTO) 5.3 K/uL (1.8-7.7); NEUTROPHILS % (AUTO) 56.1 % (40.0-70.0); PLATELET COUNT (AUTO) 234 K/uL (130-430); RED BLOOD CELL COUNT(AUTO) 2.29 MIL/uL (4.2-6.2); WHITE BLOOD COUNT (AUTO) 9.4 K/uL (4.8-10.8)
[2019-08-06 09:05] LABS: RED CELL DISTRIBUTION WIDTH 21.3 % (9.0-15.0)
[2019-08-06] MEDS: LANSOPRAZOLE 30 MG CAPSULE.DR GT SCH (10:02)
[2019-08-06] MEDS: FOLIC ACID 1 MG TABLET GT SCH (10:02)
[2019-08-06] MEDS: FUROSEMIDE 20 MG TABLET GT SCH ×2 (10:07→22:36)
[2019-08-06] MEDS: DOCUSATE SODIUM 100 MG/10 ML UDC GT SCH (10:09)
[2019-08-06] MEDS: MULTIVIT-MINERALS/FERROUS GLUC 15 ML UDC GT SCH (10:09)
[2019-08-06] MEDS: FERROUS SULFATE 300 MG/5 ML UDC GT SCH (10:09)
[2019-08-06] MEDS: PHENYTOIN 100 MG/4 ML UDC (DILANTIN) GT SCH ×3 (10:10→22:36)
[2019-08-06] MEDS: ERGOCALCIFEROL 8000 UNITS/ML ORAL SOLUTION, 60 ML BOTTLE GT SCH (10:11)
[2019-08-06 11:17] VITALS: BP_SYST 123
--- NOTE | 2019-08-06 12:00 | NUR ---
Rounds Pt in no signs of distress or pain.
[2019-08-06] MEDS ORDERED: EPOETIN ALFA 20,000 UNITS/ML VIAL SUBCUT ONE (14:15)
[2019-08-06 15:05] VITALS: BP_SYST 110
--- NOTE | 2019-08-06 15:39 | NUR ---
Nutrition F/U RD reviewed pt's current EMR including diet hx, physician notes, nursing notes, pertinent labs/meds/procedures, care trends and care activity. 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 Per RN, pt has been tolerating TF, but TF bottle is almost empty and needs replacement. RD notified [facility] staff to provide. PO diet is not indicated d/t pt's Hx of dysphagia -- PO diet may have been ordered on accident by nursing staff 08/04/19. RD notified RN who was aware and did not serve 2 gm Na diet to pt when provided today. TF of Glucerna 1.5 at 70 ml/hr, Caden BID, Free Water Flush: 100 ml Q6h via GT is appropriate/adequate. is appropriate/adequate. Estimated Energy Expenditure (kcals/day) 2184 (MSJ x 1.3 x 1.4 for chronic dz and wound healing) Estimated Protein Required (g/day) 90-156 g/day (1.2-2g/kg based on Adj BW for chronic dz and wound healing) Estimated Fluid Required (l/day) 1.8-2.1L/day (based on CBW for maintenance) Problem/Etiology/Signs/Symptoms Increased nutrient needs related to wound healing as evidenced by multiple pressure injuries *ongoing* Expected Outcomes/Goals Monitor EN tolerance and intake w/ goal of pt meeting at least 75% of estimated nutritional needs, labs trending WNL, normal GI function, skin integrity/wt maintenance. Dietitian Recommendations * D/C 2 gm Na diet * Recommend Glucerna 1.5 at 70 ml/hr, Caden BID, Free Water Flush: 100 ml Q6h via GT *Provides: 2520 kcal/day, 144 gm protein/day, and 1675 ml free water/day *Meets: 115% of estimated caloric needs and 92% of upper end of estimated protein needs Follow Up High Risk: F/U in 2-3 days
[2019-08-06] MEDS: BALSAM PERU/CASTOR OIL 60 GM OINT...G. TP SCH (15:43)
--- NOTE | 2019-08-06 15:43 | NUR ---
Dietitian Recommendations * D/C 2 gm Na diet * Recommend Glucerna 1.5 at 70 ml/hr, Caden BID, Free Water Flush: 100 ml Q6h via GT *Provides: 2520 kcal/day, 144 gm protein/day, and 1675 ml free water/day *Meets: 115% of estimated caloric needs and 92% of upper end of estimated protein needs LP, RD Please refer to Nutrition F/U for details.
[2019-08-06] MEDS: HYDROCORTISONE 1%, 28.35 GM TOPICAL CREAM TP SCH ×2 (15:44→22:37)
[2019-08-06] MEDS ORDERED: EPOETIN ALFA 10,000 UNITS/ML VIAL SUBCUT ONE (15:45)
--- NOTE | 2019-08-06 16:30 | NUR ---
Performed wound care dressing changes and pericare for pt with BM. Tolerated well.
--- NOTE | 2019-08-06 18:50 | NUR ---
Closing Pt in no signs of distress or pain. Wound care done. Will endorse plan of care to manufacturing supervisor 2nd shift RN.
[2019-08-06 19:00] VITALS: BP_SYST 103
--- NOTE | 2019-08-06 19:15 | NUR ---
change of shift.pt.presents isolations status;contact;mdro/[employer];sputum,mrsa;wounds.pt.presents trach/vent;settings: tv;500,fio-2%=40%,a/c;12.p:5.pt.presents picc line;location:rt.bicept.iv fluids infusing.pt.presents g-tube;intact;patent; g-tube feed infusing.pt.presents supra- pubic cath.intact;patent;urine content present.call light/telephone placed w/in reach of the pt.
[2019-08-06 20:00] VITALS: BP_SYST 103
--- NOTE | 2019-08-06 20:00 | NUR ---
pt.assessed.v/s assessed;values w/in normal limits.b/p values slightly low.pt asymptomatic.vent settings reviewed.correspond to md's orders.i have attended to the oral/trach suctioning.i have attended to the oral/trach care.picc line intact;patent;iv fluids infusing.g-tube intact;patent g-tube feed infusing.supra-pubic cath intact;patent;urine content present.general status stable. respiratory status stable;o2-sat%=210-0%.call light/telephone placed w/in reach of the pt.
--- NOTE | 2019-08-06 21:00 | NUR ---
2100pmedications administered via the g-tube medication administered w/out resistance/g-tube intact;patent flushed.
[2019-08-06] MEDS: NACL 0.9% 1,000 ML IV SCH (21:30)
--- NOTE | 2019-08-06 22:00 | NUR ---
pt.assessed.pt.assessed for cleanliness.pt.repositioned.i have attended to the oral/trach care.i have attended to the oral/trach suctioning. picc line intact;patent;iv fluids infusing.g-tube intact;patent g-tube feed infusing.supra-pubic cath intact;patent;urine content preset.general status stable.respiratory status stable:o2-sat%=100%.call light/telephone placed w/in reach of the pt.
--- NOTE | 2019-08-07 | NUR ---
pt.assessed.v/s assessed;values w/in normal limits.pt.assessed for cleanliness.pt.repositioned.i have attended to the oral/trach care.i have attended to the oral/trach suctioning.picc line intact;patent iv fluids infusing.g-tube intact;patent;g-tube feed infusing.supra-pubic cath intact;patent;urine content present.general status stable.respiratory status stable;o2-sat%=100%.call light/telephone placed w/in reach of the pt.
[2019-08-07 00:04] VITALS: BP_SYST 127
--- NOTE | 2019-08-07 02:00 | NUR ---
pt.assessed.pt.assessed for cleanliness.pt.repositioned.i have attended to the oral/trach care.i have attended to the oral/trach suctioning. picc line intact;patent iv fluids infusing.g-tube intact;patent;g-tube feed infusing./supra-pubic cath intact patent;urine content present.general status stable.respiratory status stable:o2-sat%=100%.call light/telephone placed w/in reach of the pt.
[2019-08-07] MEDS: VALPROIC ACID ORAL SYRUP 250 MG/5 ML UDC GT SCH ×4 (02:58→20:41)
[2019-08-07] MEDS: IPRATROPIUM/ALBUTEROL SULFATE 3 ML AMPUL.NEB (DUONEB) INH SCH ×6 (03:22→23:20)
--- NOTE | 2019-08-07 04:00 | NUR ---
pt.assessed.pt.assessed for cleanliness.pt.repositioned.i have attended to the oral/trach care.i have attended to the oral /trach suctioning. picc line intact;patent;iv fluids infusing.i have changed the iv fluids bag.g-tube intact;patent.g-tube feed infusing.i have changed the g-tube dsg/supra pubo9c cath intact;patent.i have changed the supra-pubic cath dsg.general status stable.respiratory status stable;o2-sat%=100%.call light/telephone placed w/in reach of the pt.
[2019-08-07] MEDS: NACL 0.9% 1,000 ML IV SCH (04:10)
[2019-08-07] MEDS: PIPERACILLIN/TAZO 4.5GM/DEX-IS 100 ML IV SCH ×3 (05:53→22:10)
[2019-08-07] MEDS: LEVOTHYROXINE SODIUM 0.05 MG TABLET PO SCH (05:54)
--- NOTE | 2019-08-07 06:16 | NUR ---
pt.assessed.pt.assessed for cleanliness.pt.cleaned.i have attended to the oral/trach care,the oral/trach suctioning.pt.presented bm.pt cleaned.pt repositioned.picc line intact;patent;iv fluids infusing.g-tube intact;patent;g-tube feed infusing.supra-pubic cath intact;patent:urine content present.i have attended to the wound care.i have administered zosyn;abx;ivpb 0600a dose.i have administered synthroid:07a00a dose.general statu stable.respiratory status stable;o2-sat%=100%.call light/.telephone placed w/in reach of the pt.
[2019-08-07 07:25] LABS: BASOPHILS # (AUTO) 0.1 K/uL (0.0-0.2); EOSINOPHILS # (AUTO) 0.5 K/uL (0.0-0.4); EOSINOPHILS % (AUTO) 5.6 % (0.0-4.0); HEMATOCRIT 23.8 % (36-54); HEMOGLOBIN 7.8 g/dL (14.0-18.0); LYMPHOCYTES # (AUTO) 2.1 K/uL (1.0-5.5); LYMPHOCYTES % (AUTO) 26.1 % (20.5-51.5); MEAN CORPUSCULAR HEMOGLOBIN 37 pg (27-31); MEAN CORPUSCULAR HGB CONC 33 % (32-36); MEAN CORPUSCULAR VOLUME 112 fL (79.0-98.0); MONOCYTES % (AUTO) 12.4 % (1.7-9.3); NEUTROPHILS # (AUTO) 4.4 K/uL (1.8-7.7); NEUTROPHILS % (AUTO) 54.9 % (40.0-70.0); PLATELET COUNT (AUTO) 243 K/uL (130-430); RED BLOOD CELL COUNT(AUTO) 2.13 MIL/uL (4.2-6.2); RED CELL DISTRIBUTION WIDTH 20.2 % (9.0-15.0)
--- NOTE | 2019-08-07 07:55 | NUR ---
opening note patient is resting in bed, patient is nonverbal, educated environmental health specialist light system and plan of care, vent settings TV 500 FiO2 40 AC 12 PEEP 5, Glucerna 1.5 running at 70ml/hr, PICC line dressing intact with NS running at 30ml/hr and patient is tolerating well, no signs of distress at this time, no other needs addressed at this time, bed in lowest position, bed alarm on, side rails up with seizure precaution pads, call light within reach, fall/safety and contact precautions in place.
[2019-08-07 08:09] VITALS: BP_SYST 112
[2019-08-07] MEDS: DOCUSATE SODIUM 100 MG/10 ML UDC GT SCH (09:13)
[2019-08-07] MEDS: FERROUS SULFATE 300 MG/5 ML UDC GT SCH (09:13)
[2019-08-07] MEDS: MULTIVIT-MINERALS/FERROUS GLUC 15 ML UDC GT SCH (09:14)
[2019-08-07] MEDS: FOLIC ACID 1 MG TABLET GT SCH (09:14)
[2019-08-07] MEDS: PHENYTOIN 100 MG/4 ML UDC (DILANTIN) GT SCH ×3 (09:14→20:41)
[2019-08-07] MEDS: ERGOCALCIFEROL 8000 UNITS/ML ORAL SOLUTION, 60 ML BOTTLE GT SCH (09:14)
[2019-08-07] MEDS: FUROSEMIDE 20 MG TABLET GT SCH ×2 (09:14→22:21)
[2019-08-07] MEDS: LANSOPRAZOLE 30 MG CAPSULE.DR GT SCH (09:14)
[2019-08-07] MEDS: BALSAM PERU/CASTOR OIL 60 GM OINT...G. TP SCH (09:15)
[2019-08-07] MEDS: HYDROCORTISONE 1%, 28.35 GM TOPICAL CREAM TP SCH ×2 (09:16→20:44)
--- NOTE | 2019-08-07 10:00 | NUR ---
wound care wound care was done with the assistance of the JETTING MACHINE OPERATOR, patient was also cleaned, patient tolerated well, no other needs addressed at this time, fall/safety, contact, and seizure precautions in place.
--- NOTE | 2019-08-07 12:30 | NUR ---
rounds patient is resting in bed, eyes closed breathing easy and nonlabored, no signs of distress at this time, no needs addressed at this time, fall/safety, contact, and seizure precautions in place.
[2019-08-07 13:37] VITALS: BP_SYST 98
--- NOTE | 2019-08-07 14:57 | NUR ---
medications patient is resting in bed, educated on medication uses and side effects, patient is nonverbal, patient tolerated well, no signs of distress at this time, fall/safety, contact, and seizure precautions in place.
[2019-08-07 16:33] VITALS: BP_SYST 116
--- NOTE | 2019-08-07 19:10 | NUR ---
Opening Note Received report from alie RN, patient resting in bed, eyes closed, patient is nonverbal, tracheostomy ventilator support, vent settings TV 500, FiO2 40%, AC 12, PEEP 5, right upper arm PICC line infusing fluids per MD order, tube feeding Glucerna 1.5 at 70mL/hr, 0mL residual, HOB elevated to 30 degrees, suprapubic catheter in place draining yellow to gravity, seizure precautions in place, safety and fall precautions in place, aspiration precautions in place, call light with patient, will continue to monitor.
--- NOTE | 2019-08-07 19:14 | NUR ---
DVT prophylaxis: Spoke with Dr. White over phone regarding putting patient back on DVT prophylaxis. stated that DVT prophylaxis is not indicated as patient is anemic, does not have a DVT, and has multiple wounds to lower extremities.
[2019-08-07 20:00] VITALS: BP_SYST 97
--- NOTE | 2019-08-07 20:41 | NUR ---
Medications Patient is resting in bed, eyes closed, educated patient on 2100 scheduled medications uses and potential side effects, patient is nonverbal, administered medications via g-tube per MD order, patient tolerated well, safety, fall, and aspiration precautions in place, contact isolation precautions on place, call light with patient, will continue to monitor.
[2019-08-08] VITALS: BP_SYST 112
--- NOTE | 2019-08-08 00:05 | NUR ---
RN Rounds Patient resting in bed, eyes closed, no signs of acute distress at this time, tolerating tracheostomy ventilator support, vent settings TV 500, FiO2 40%, AC 12, PEEP 5, PICC line infusing fluids per MD order, HOB elevated to 30 degrees, suprapubic catheter in place draining yellow to gravity, safety, fall and aspiration precautions in place, seizure precautions in place, contact isolation precautions in place, call light with patient, will continue to monitor.
[2019-08-08] MEDS: VALPROIC ACID ORAL SYRUP 250 MG/5 ML UDC GT SCH ×4 (02:36→21:32)
--- NOTE | 2019-08-08 02:36 | NUR ---
RN Rounds Patient is resting in bed, eyes closed, tolerating tracheostomy vent support, PICC line infusing fluids per MD order, suprapubic catheter in place draining yellow to gravity, safety and fall precautions in place, aspiration precautions in place, seizure precautions in place, contact isolation precautions in place, call light with patient, will continue to monitor.
[2019-08-08] MEDS: IPRATROPIUM/ALBUTEROL SULFATE 3 ML AMPUL.NEB (DUONEB) INH SCH ×6 (03:00→23:35)
[2019-08-08] MEDS: NACL 0.9% 1,000 ML IV SCH (03:47)
--- NOTE | 2019-08-08 05:00 | NUR ---
Incontinence care Patient had a loose bowel movement. Incontinence care rendered by RN and Niya RASMUSSNE. Patient clean and dry, turned and repositioned, call light is with patient, will continue to monitor.
--- NOTE | 2019-08-08 05:05 | NUR ---
PICC line care: PICC line dressing change rendered at this time for AC PICC line, sterile technique observed. Patient tolerated well. Will continue monitoring.
--- NOTE | 2019-08-08 05:20 | NUR ---
Wound Care Completed wound care and dressing changes to patient's left forehead, upper back, sacral area per MD order. Dressing changes to G-tube site and supra pubic site also completed, patient tolerated well, will continue to monitor.
[2019-08-08] MEDS: LEVOTHYROXINE SODIUM 0.05 MG TABLET PO SCH (06:06)
--- NOTE | 2019-08-08 06:38 | NUR ---
Closing Note Patient resting in bed, awake, no signs of acute distress, tolerating tracheostomy ventilator support, vent settings are TV 500, FiO2 40%, AC 12, PEEP 5, right upper arm PICC line infusing fluids per MD order, tube feeding Glucerna 1.5 at 70mL/hr, 0mL residual, HOB elevated to 30 degrees, suprapubic catheter in place draining yellow to gravity, seizure precautions in place, safety and fall precautions in place, aspiration precautions in place, contact isolation precautions in place, call light with patient, will endorse care to dayshift RN.
--- NOTE | 2019-08-08 07:22 | NUR ---
Spoke with Dr. Anaya: Received call from MD, updated MD regarding patient's status. Per MD, he wants to perform surgery on Sunday, keep him NPO after midnight Sunday, and obtain medical clearance from Dr. White. Will endorse to dayshift RN.
[2019-08-08 08:35] VITALS: BP_SYST 114
--- NOTE | 2019-08-08 08:35 | NUR ---
INITIAL ROUNDS Received pt resting quietly in bed with no s/s resp distress, no s/s pain or discomfort. Vent settings verified. Pt suctioned via trach with moderate amount of thick white sputum noted. Pt on Contact isolation precautions for MDRO of the wound and WIND ENERGY ENGINEER of the sputum. IVF infusing well to AC PICC line at ordered rate with no s/s infiltration to site. Glucerna infusing well via g-tube at ordered rate with 3 ml residual noted. Suprapubic catheter draining to gravity with yellow urine. HOB elevated for aspiration precautions. Pt repositioned with pillow support and heels off-loaded for skin care. Noted pt with multiple dressings in place and pt's back and buttocks with reddened skin that sloughs off when pt turned and skin assessed. Pt on air mattress. Side rails up x3, bed alarm on for safety.
[2019-08-08 09:22] LABS: BASOPHILS # (AUTO) 0.1 K/uL (0.0-0.2); BASOPHILS % (AUTO) 0.8 % (0.0-2.0); EOSINOPHILS # (AUTO) 0.5 K/uL (0.0-0.4); EOSINOPHILS % (AUTO) 5.2 % (0.0-4.0); HEMATOCRIT 25.9 % (36-54); HEMOGLOBIN 8.4 g/dL (14.0-18.0); LYMPHOCYTES % (AUTO) 22.7 % (20.5-51.5); MEAN CORPUSCULAR HEMOGLOBIN 36 pg (27-31); MEAN CORPUSCULAR HGB CONC 33 % (32-36); MEAN CORPUSCULAR VOLUME 111 fL (79.0-98.0); MONOCYTES # (AUTO) 0.9 K/uL (0.0-1.0); MONOCYTES % (AUTO) 10.5 % (1.7-9.3); NEUTROPHILS # (AUTO) 5.4 K/uL (1.8-7.7); NEUTROPHILS % (AUTO) 60.8 % (40.0-70.0); PLATELET COUNT (AUTO) 281 K/uL (130-430); RED BLOOD CELL COUNT(AUTO) 2.33 MIL/uL (4.2-6.2); RED CELL DISTRIBUTION WIDTH 20.9 % (9.0-15.0); WHITE BLOOD COUNT (AUTO) 8.9 K/uL (4.8-10.8)
--- NOTE | 2019-08-08 09:30 | NUR ---
MD Dr. Anaya here and saw pt-MD stated he will do the surgery on Sunday due to having a full schedule today.
[2019-08-08] MEDS: FERROUS SULFATE 300 MG/5 ML UDC GT SCH (10:14)
[2019-08-08] MEDS: PHENYTOIN 100 MG/4 ML UDC (DILANTIN) GT SCH ×3 (10:14→21:32)
[2019-08-08] MEDS: FUROSEMIDE 20 MG TABLET GT SCH ×2 (10:15→21:44)
[2019-08-08] MEDS: LANSOPRAZOLE 30 MG CAPSULE.DR GT SCH (10:15)
[2019-08-08] MEDS: DOCUSATE SODIUM 100 MG/10 ML UDC GT SCH (10:15)
[2019-08-08] MEDS: FOLIC ACID 1 MG TABLET GT SCH (10:15)
[2019-08-08] MEDS: MULTIVIT-MINERALS/FERROUS GLUC 15 ML UDC GT SCH (10:16)
[2019-08-08] MEDS: ERGOCALCIFEROL 8000 UNITS/ML ORAL SOLUTION, 60 ML BOTTLE GT SCH (10:17)
[2019-08-08 10:52] VITALS: BP_SYST 114
[2019-08-08 11:18] VITALS: BP_SYST 106
--- NOTE | 2019-08-08 13:14 | NUR ---
Discharge Planning: DCP faxed pt referral [facility] (f [phone] p [phone]) spoke to Yadira no male rooms available at this time.
[2019-08-08 16:15] VITALS: BP_SYST 111
[2019-08-08] MEDS: PIPERACILLIN/TAZO 4.5GM/DEX-IS 100 ML IV SCH ×2 (16:17→21:34)
[2019-08-08] MEDS: BALSAM PERU/CASTOR OIL 60 GM OINT...G. TP SCH (16:19)
[2019-08-08] MEDS: HYDROCORTISONE 1%, 28.35 GM TOPICAL CREAM TP SCH ×2 (16:20→21:33)
--- NOTE | 2019-08-08 17:15 | NUR ---
WOUND CARE *Left heel wound dressing removed. Wound cleansed with normal saline, Venelex ointment placed onto wound bed, moisture barrier cream applied to periwound, covered with foam dressing and secured in place with Ching wrap. Wound measures 10 cm x 8 cm. Wound bed is 50% red tissue, 30% yellow tissue and 20% blackened tissue. Wound has a foul odor with moderate amount of drainage. Left LE wound posterior to wound #1 above. Area cleansed with normal saline, Venelex ointment placed onto wound bed, moisture barrier cream applied to slightly reddened periwound, foam dressing applied and secured in place with Ching wrap. No odor, small amount of drainage noted. Wound measures 1cm x 2 cm, 100% pink tissue. Right foot wound cleansed with normal saline, Venelex placed onto wound bed, moisture barrier cream applied to periwound, foam dressing applied and secured in place with Ching wrap. Wound bed is 100% red tissue with moderate amount of serosanguineous drainage with foul odor noted. Right posterior lower leg wound cleansed with normal saline, Venelex ointment placed onto wound bed, moisture barrier cream applied to periwound area, covered with a foam dressing and secured in place with Ching wrap. Wound bed is 80% red tissue, 15% yellow tissue and 5% black tissue, no odor, minimal drainage, periwound slightly pink. Wound measures 11.5 cm x 1 cm. Bilat heels off-loaded and floating. Pt tolerated well.
--- NOTE | 2019-08-08 19:08 | NUR ---
CLOSING NOTE Pt resting quietly in bed with no s/s resp distress, no s/s pain or discomfort. Pt suctioned via trach with moderate amount of thick white sputum noted.Contact isolation precautions maintained throughout shift. IVF infusing well to AC PICC line at ordered rate with no s/s infiltration to site. Glucerna infusing well via g-tube at ordered rate with no residual noted. Suprapubic catheter draining to gravity with yellow urine. Aspiration, skin and safety precautions remain in place.
--- NOTE | 2019-08-08 19:30 | NUR ---
Opening Note Received report from alie RN, patient resting in bed, eyes closed, patient is nonverbal, tracheostomy ventilator support, vent settings TV 500, FiO2 40%, AC 12, PEEP 5, right upper arm PICC line infusing fluids per MD order, tube feeding Glucerna 1.5 at 70mL/hr, 5mL residual, aspiration precautions in place, HOB elevated to 30 degrees, suprapubic catheter in place draining yellow to gravity, seizure precautions in place, safety and fall precautions in place, call light with patient, will continue plan of care.
[2019-08-08 20:00] VITALS: BP_SYST 105
--- NOTE | 2019-08-09 00:30 | NUR ---
Incontinence care Patient had a loose bowel movement. Incontinence care rendered by this RN and Niya RASMUSSEN. Patient clean and dry, turned and repositioned, call light is with patient, will continue to monitor.
[2019-08-09 00:45] VITALS: BP_SYST 128
[2019-08-09] MEDS: VALPROIC ACID ORAL SYRUP 250 MG/5 ML UDC GT SCH ×4 (02:10→21:42)
--- NOTE | 2019-08-09 02:10 | NUR ---
Medications Patient is resting in bed, eyes closed, educated patient on 0300 scheduled medication uses and potential side effects, patient is nonverbal, administered medication via g-tube per MD order, patient tolerated well, safety, fall, and aspiration precautions in place, contact isolation precautions on place, call light with patient, will continue to monitor.
[2019-08-09] MEDS: IPRATROPIUM/ALBUTEROL SULFATE 3 ML AMPUL.NEB (DUONEB) INH SCH ×6 (03:57→23:32)
--- NOTE | 2019-08-09 04:23 | NUR ---
Wound Care Completed wound care per wound care guidelines, completed dressing changes to patient's left forehead, upper back, sacral area. Dressing changes to G-tube site and supra pubic site also completed, patient tolerated well, call light with patient, will continue to monitor.
[2019-08-09] MEDS: PIPERACILLIN/TAZO 4.5GM/DEX-IS 100 ML IV SCH ×2 (06:16→13:17)
[2019-08-09] MEDS: NACL 0.9% 1,000 ML IV SCH (06:16)
[2019-08-09] MEDS: LEVOTHYROXINE SODIUM 0.05 MG TABLET PO SCH (06:17)
--- NOTE | 2019-08-09 06:32 | NUR ---
Closing Note Patient resting is bed, eyes closed, tolerating tracheostomy ventilator support, vent settings TV 500, FiO2 40%, AC 12, PEEP 5, right upper arm PICC line infusing fluids per MD order, tube feeding Glucerna 1.5 at 70mL/hr, 0mL residual, suprapubic catheter in place draining yellow to gravity, seizure precautions in place, no signs of acute distress, safety and fall precautions in place, bed locked and in lowest position, bed alarm on, three side rails, aspiration precautions in place, contact isolation precautions in place, call light with patient, will endorse care to dayshift RN.
[2019-08-09 07:27] LABS: BASOPHILS # (AUTO) 0.1 K/uL (0.0-0.2); BASOPHILS % (AUTO) 0.7 % (0.0-2.0); EOSINOPHILS # (AUTO) 0.4 K/uL (0.0-0.4); EOSINOPHILS % (AUTO) 5.7 % (0.0-4.0); HEMATOCRIT 25.5 % (36-54); HEMOGLOBIN 8.2 g/dL (14.0-18.0); LYMPHOCYTES # (AUTO) 2.2 K/uL (1.0-5.5); LYMPHOCYTES % (AUTO) 31.5 % (20.5-51.5); MEAN CORPUSCULAR HEMOGLOBIN 37 pg (27-31); MEAN CORPUSCULAR HGB CONC 32 % (32-36); MEAN CORPUSCULAR VOLUME 113 fL (79.0-98.0); MONOCYTES % (AUTO) 14.1 % (1.7-9.3); NEUTROPHILS # (AUTO) 3.4 K/uL (1.8-7.7); PLATELET COUNT (AUTO) 243 K/uL (130-430); RED BLOOD CELL COUNT(AUTO) 2.25 MIL/uL (4.2-6.2); WHITE BLOOD COUNT (AUTO) 7.1 K/uL (4.8-10.8)
--- NOTE | 2019-08-09 07:30 | NUR ---
OPENING NOTES: RECEIVED PATIENT FROM YEAST TENDER NURSE. PATIENT IS LAYING DOWN IN BED WITH HIS EYES OPEN. PATIENT IS NONVERBAL. PATIENT IS ON MECHANICAL VENTILATION WITH SETTINGS OF TV: 500, AC: 12, PEEP: 5, AND FIO2: 40%. PATIENT IS TOLERATING IT WELL. PICC LINE INTACT WITH CLEAN, DRY DRESSING AND RUNNING FLUIDS ORDERED. G-TUBE INTACT AND RUNNING FEEDING ORDERED. HENSLEY CATHETER INTACT AND DRAINING BY GRAVITY. PATIENT IN STABLE CONDITION. SAFETY, FALL, ASPIRATION, SEIZURE, AND CONTACT PRECAUTIONS ARE IN PLACE. BED LOCKED IN LOWEST POSITION WITH CALL LIGHT IN REACH. WILL CONTINUE TO MONITOR PATIENT FOR ANY CHANGES.
[2019-08-09 07:40] LABS: ALANINE AMINOTRANSFERASE 8 U/L (12-78); ALBUMIN 1.6 g/dL (3.4-4.8); ANION GAP 7 (5-15); ASPARTATE AMINOTRANSFERASE 15 U/L (10-37); CALCIUM 8.5 mg/dL (8.4-11.0); CHLORIDE 112 mmol/L (98-107); CREATININE 0.82 mg/dL (0.55-1.30); GLUCOSE 107 mg/dL (70-99); POTASSIUM 4.1 mmol/L (3.5-5.1); SODIUM SERUM 148 mmol/L (136-145); TOTAL BILIRUBIN 0.3 mg/dL (0.0-1.0); UREA NITROGEN, BLOOD 26 mg/dL (8-21)
[2019-08-09 08:14] VITALS: BP_SYST 119
[2019-08-09] MEDS: ERGOCALCIFEROL 8000 UNITS/ML ORAL SOLUTION, 60 ML BOTTLE GT SCH (09:11)
[2019-08-09] MEDS: BALSAM PERU/CASTOR OIL 60 GM OINT...G. TP SCH (09:11)
[2019-08-09] MEDS: HYDROCORTISONE 1%, 28.35 GM TOPICAL CREAM TP SCH ×2 (09:11→21:47)
[2019-08-09] MEDS: PHENYTOIN 100 MG/4 ML UDC (DILANTIN) GT SCH ×3 (09:12→21:42)
[2019-08-09] MEDS: LANSOPRAZOLE 30 MG CAPSULE.DR GT SCH (09:12)
[2019-08-09] MEDS: FOLIC ACID 1 MG TABLET GT SCH (09:13)
[2019-08-09] MEDS: DOCUSATE SODIUM 100 MG/10 ML UDC GT SCH (09:13)
[2019-08-09] MEDS: MULTIVIT-MINERALS/FERROUS GLUC 15 ML UDC GT SCH (09:13)
[2019-08-09] MEDS: FUROSEMIDE 20 MG TABLET GT SCH ×2 (09:13→21:55)
[2019-08-09] MEDS: FERROUS SULFATE 300 MG/5 ML UDC GT SCH (09:14)
--- NOTE | 2019-08-09 10:05 | NUR ---
RN ROUNDS: PATIENT IS LAYING DOWN IN BED RESTING HIS EYES. NO SIGNS OF DISTRESS OR SHORTNESS OF BREATH NOTED. PATIENT IN STABLE CONDITION. WILL CONTINUE TO MONITOR PATIENT FOR ANY CHANGES.
[2019-08-09 12:10] VITALS: BP_SYST 115
--- NOTE | 2019-08-09 12:10 | NUR ---
MD ROUNDS: DR. LOGAN MAKING HER ROUNDS. AWARE OF PATIENT'S CONDITION. NEW ORDERS GIVEN.
--- NOTE | 2019-08-09 12:25 | NUR ---
RN ROUNDS: PATIENT IS ASLEEP IN BED. NO SIGNS OF DISTRESS OR SHORTNESS OF BREATH NOTED. NEW IV FLUIDS HUNG. PATIENT IN STABLE CONDITION. WILL CONTINUE TO MONITOR PATIENT FOR ANY CHANGES.
[2019-08-09] MEDS: D5W 1,000 ML IV SCH (12:45)
--- NOTE | 2019-08-09 14:20 | NUR ---
RN ROUNDS: PATIENT IS LAYING DOWN IN BED WITH HIS EYES CLOSED. NO SIGNS OF DISTRESS OR SHORTNESS OF BREATH NOTED. PATIENT IN STABLE CONDITION. WILL CONTINUE TO MONITOR PATIENT FOR ANY CHANGES.
[2019-08-09] MEDS ORDERED: EPOETIN ALFA 20,000 UNITS/ML VIAL SUBCUT ONE (15:15)
--- NOTE | 2019-08-09 15:52 | NUR ---
Nutrition F/U RD reviewed pt's current EMR including diet hx, physician notes, nursing notes, pertinent labs/meds/procedures, care trends and care activity. Admitting Diagnosis: Osteomyelitis of the right foot Current Diet Order/Nutrition Support: Glucerna 1.5 at 70ml/hr with 100ml FWF Q6h and Caden BID Provides: 2520 kcal/day, 144 gm protein/day, and 1675 ml free water/day Meets: 115% of estimated caloric needs and 92% of upper end of estimated protein needs Subjective Information: Pt seen resting in bed w/ trach to vent, Glucerna 1.5 at 70ml running as ordered with 145ml enfused at time of RD visit. No signs of distress. Pt continues to tolerate TF with minimal residuals per nursing. Estimated Energy Expenditure (kcals/day) 2184 (MSJ x 1.3 x 1.4 for chronic dz and wound healing) Estimated Protein Required (g/day) 90-156 g/day (1.2-2g/kg based on Adj BW for chronic dz and wound healing) Estimated Fluid Required (l/day) 1.8-2.1L/day (based on CBW for maintenance) Problem/Etiology/Signs/Symptoms Increased nutrient needs related to wound healing as evidenced by multiple pressure injuries *ongoing* Expected Outcomes/Goals Monitor EN tolerance and intake w/ goal of pt meeting at least 75% of estimated nutritional needs, labs trending WNL, normal GI function, skin integrity/wt maintenance. Dietitian Recommendations * Continue Glucerna 1.5 at 70 ml/hr, Caden BID, Free Water Flush: 100 ml Q6h via GT Follow Up High Risk: F/U in 2-3 days
--- NOTE | 2019-08-09 15:55 | NUR ---
Dietitian Recommendations * Continue Glucerna 1.5 at 70 ml/hr, Caden BID, Free Water Flush: 100 ml Q6h via GT Please see Nutrition Assessment for further details. LT, RD
--- NOTE | 2019-08-09 16:04 | NUR ---
RN ROUNDS: PATIENT IS LAYING DOWN IN BED WITH HIS EYES CLOSED. PATIENT IS TOLERATING OXYGEN ON MECHANICAL VENTILATION. NO SIGNS OF DISTRESS OR SHORTNESS OF BREATH NOTED. PATIENT IN STABLE CONDITION. WILL CONTINUE TO MONITOR PATIENT FOR ANY CHANGES.
[2019-08-09 16:05] VITALS: BP_SYST 116
--- NOTE | 2019-08-09 18:41 | NUR ---
CLOSING NOTES: PATIENT IS LAYING DOWN IN BED WITH HIS EYES CLOSED. PATIENT IS NONVERBAL. PATIENT IS ON MECHANICAL VENTILATION WITH SETTINGS OF TV: 500, AC: 12, PEEP: 5, AND FIO2: 40%. PATIENT IS TOLERATING IT WELL. PICC LINE INTACT WITH CLEAN, DRY DRESSING AND RUNNING FLUIDS ORDERED. G-TUBE INTACT AND RUNNING FEEDING ORDERED. HENSLEY CATHETER INTACT AND DRAINING BY GRAVITY. PATIENT IN STABLE CONDITION. SAFETY, FALL, ASPIRATION, SEIZURE, AND CONTACT PRECAUTIONS REMAINED IN PLACE THROUGHOUT THE SHIFT. BED LOCKED IN LOWEST POSITION WITH CALL LIGHT IN REACH. WILL ENDORSE PATIENT CARE TO ONCOMING FUGITIVE INVESTIGATOR NURSE.
--- NOTE | 2019-08-09 19:10 | NUR ---
OPENING NOTES Receive report from morning shift BENJAMIN Valdes. Patient eyes were close, arousable by name. No signs of respiratory distress and discomfort noted. On tracheostomy, attached and secured, on mechanical ventilator, operating well, settings AC 12, FIO2 40, PEEP of 5, and Tidal volume of 500. HOB raised. G- tube, infusing well, IVF infusing well, patency noted. Vital signs taken and recorded. On suprapubic catheter, attached and secured, draining by gravity. On contact precautions. Call light within reach. Safety precautions in place. Will continue to monitor patient.
[2019-08-09 20:00] VITALS: BP_SYST 106
--- NOTE | 2019-08-09 21:42 | NUR ---
MED PASS Due medication given at this time via G-tube, residual 0ml, patient tolerated medication well. No signs of respiratory distress and discomfort noted. Breathing even and unlabored. Supra pubic catheter draining well by gravity. Mechanical ventilator setting still the same upon assessment. Safety precautions in place. Will continue to monitor patient.
--- NOTE | 2019-08-10 | NUR ---
RN ROUNDS/HOLD TUBE FEEDING PER MD Order Patient asleep at this time, no signs of respiratory distress and discomfort noted. HOB slightly raised. Breathing even and unlabored. Bilateral Legs and arms are elevated. Hold tube feeding at this for preparation for surgery tomorrow 08/11/19. Safety precautions in place. Will continue to monitor patient. Addendum: 08/11/19 at 0230 by Kacey Camacho RN WRONG DATE; NOTES MEANT FOR 08/11/2019 0000
[2019-08-10] MEDS: PIPERACILLIN/TAZO 4.5GM/DEX-IS 100 ML IV SCH ×4 (00:09→21:58)
[2019-08-10 00:46] VITALS: BP_SYST 106
--- NOTE | 2019-08-10 01:00 | NUR ---
RN ROUNDS Patient asleep at this time, no signs of respiratory distress and discomfort noted HOB raised. Breathing even and unlabored. Bilateral Legs and arms are elevated. Safety precautions in place. Will continue to monitor patient.
[2019-08-10] MEDS: VALPROIC ACID ORAL SYRUP 250 MG/5 ML UDC GT SCH ×4 (02:52→21:37)
--- NOTE | 2019-08-10 03:00 | NUR ---
TUBE FEEDING CHANGE Change tube feeding at this time, no residual noted up aspiration from G-tube. Patient tolerated well, no signs of respiratory distress and discomfort noted, breathing even and unlabored. HOB raised. Will continue to monitor
[2019-08-10] MEDS: IPRATROPIUM/ALBUTEROL SULFATE 3 ML AMPUL.NEB (DUONEB) INH SCH ×6 (03:03→23:09)
--- NOTE | 2019-08-10 04:30 | NUR ---
PERICARE/WOUND CARE Pericare done at this time, patient tolerated well. Wound care done at this time, patient tolerated well. Noticeable redness in patients back. Will endorse to morning shift RN to made MD aware. No signs of respiratory distress and discomfort noted. Breathing even and unlabored. Safety precautions in place. Will continue to monitor patient.
--- NOTE | 2019-08-10 07:00 | NUR ---
CLOSING NOTES Patient eyes were close, arousable by name. No signs of respiratory distress and discomfort noted. On tracheostomy, attached and secured, on mechanical ventilator, operating well, settings AC 12, FIO2 40, PEEP of 5, and Tidal volume of 500. HOB raised. G- tube, infusing well, IVF infusing well, patency noted. On suprapubic catheter, attached and secured, draining by gravity. On contact precautions. Call light within reach. Safety precautions in place. All needs met throughout the shift. Will continue to monitor patient until endorsed to oncoming shift nurse.
[2019-08-10] MEDS: LEVOTHYROXINE SODIUM 0.05 MG TABLET PO SCH (07:21)
--- NOTE | 2019-08-10 07:40 | NUR ---
OPENING NOTES: RECEIVED PATIENT FROM THERAPEUTIC MASSAGE TECHNICIAN NURSE. PATIENT IS LAYING DOWN IN BED WITH HIS EYES OPEN. PATIENT IS NONVERBAL. PATIENT IS ON MECHANICAL VENTILATION WITH SETTINGS OF TV: 500, AC: 12, PEEP: 5, AND FIO2: 40%. PATIENT IS TOLERATING IT WELL. PICC LINE INTACT WITH CLEAN, DRY DRESSING AND RUNNING FLUIDS ORDERED. G-TUBE INTACT AND RUNNING FEEDING ORDERED. HENSLEY CATHETER INTACT AND DRAINING BY GRAVITY. PATIENT IN STABLE CONDITION. SAFETY, FALL, ASPIRATION, SEIZURE, AND CONTACT PRECAUTIONS ARE IN PLACE. BED LOCKED IN LOWEST POSITION WITH CALL LIGHT IN REACH. WILL CONTINUE TO MONITOR PATIENT FOR ANY CHANGES.
[2019-08-10 08:04] VITALS: BP_SYST 115
[2019-08-10] MEDS: DOCUSATE SODIUM 100 MG/10 ML UDC GT SCH (09:03)
[2019-08-10] MEDS: ERGOCALCIFEROL 8000 UNITS/ML ORAL SOLUTION, 60 ML BOTTLE GT SCH (09:03)
[2019-08-10] MEDS: MULTIVIT-MINERALS/FERROUS GLUC 15 ML UDC GT SCH (09:03)
[2019-08-10] MEDS: FOLIC ACID 1 MG TABLET GT SCH (09:04)
[2019-08-10] MEDS: FERROUS SULFATE 300 MG/5 ML UDC GT SCH (09:04)
[2019-08-10] MEDS: FUROSEMIDE 20 MG TABLET GT SCH ×2 (09:04→21:41)
[2019-08-10] MEDS: LANSOPRAZOLE 30 MG CAPSULE.DR GT SCH (09:04)
[2019-08-10 09:05] LABS: ANION GAP 7 (5-15); CALCIUM 8.5 mg/dL (8.4-11.0); CHLORIDE 110 mmol/L (98-107); CREATININE 0.85 mg/dL (0.55-1.30); GLUCOSE 133 mg/dL (70-99); POTASSIUM 3.9 mmol/L (3.5-5.1); SODIUM SERUM 148 mmol/L (136-145); UREA NITROGEN, BLOOD 25 mg/dL (8-21)
[2019-08-10] MEDS: PHENYTOIN 100 MG/4 ML UDC (DILANTIN) GT SCH ×3 (09:05→21:36)
[2019-08-10] MEDS: BALSAM PERU/CASTOR OIL 60 GM OINT...G. TP SCH (09:06)
[2019-08-10] MEDS: HYDROCORTISONE 1%, 28.35 GM TOPICAL CREAM TP SCH ×2 (09:07→21:38)
[2019-08-10] MEDS: D5W 1,000 ML IV SCH (11:54)
[2019-08-10 12:08] VITALS: BP_SYST 104
--- NOTE | 2019-08-10 12:09 | NUR ---
RN ROUNDS: PATIENT IS LAYING DOWN IN BED WITH HIS EYES CLOSED. PATIENT IS TOLERATING OXYGEN ON MECHANICAL VENTILATION WITH NO SIGNS OF DISTRESS OR SHORTNESS OF BREATH NOTED. WOUND CARE WAS PERFORMED ON LOWER EXTREMITIES. PATIENT TOLERATED IT WELL. FEET ELEVATED AND PRESSURE OFF OF WOUNDS. PATIENT IN STABLE CONDITION. WILL CONTINUE TO MONITOR PATIENT FOR ANY CHANGES.
--- NOTE | 2019-08-10 14:10 | NUR ---
RN ROUNDS: PATIENT IS LAYING IN BED WITH HIS EYES CLOSED. PATIENT IS TOLERATING OXYGEN ON MECHANICAL VENTILATION. NO SIGNS OF DISTRESS OR SHORTNESS OF BREATH NOTED. PATIENT IN STABLE CONDITION. WILL CONTINUE TO MONITOR PATIENT FOR ANY CHANGES.
[2019-08-10 16:17] VITALS: BP_SYST 101
[2019-08-10] MEDS ORDERED: FUROSEMIDE 40 MG/4 ML VIAL IVP ONE (16:45)
[2019-08-10] MEDS: KETOCONAZOLE 200 MG TABLET GT SCH (17:59)
[2019-08-10] MEDS ORDERED: KETOCONAZOLE 200 MG TABLET GT ONE (18:00)
--- NOTE | 2019-08-10 18:57 | NUR ---
CLOSING NOTES: PATIENT IS LAYING DOWN IN BED WITH HIS EYES OPEN. PATIENT IS NONVERBAL. PATIENT IS ON MECHANICAL VENTILATION WITH SETTINGS OF TV: 500, AC: 12, PEEP: 5, AND FIO2: 40%. PATIENT IS TOLERATING IT WELL. PICC LINE INTACT WITH CLEAN, DRY DRESSING AND RUNNING FLUIDS ORDERED. G-TUBE INTACT AND RUNNING FEEDING ORDERED. HENSLEY CATHETER INTACT AND DRAINING BY GRAVITY. PATIENT IN STABLE CONDITION. SAFETY, FALL, ASPIRATION, SEIZURE, AND CONTACT REMAINED IN PLACE THROUGHOUT THE SHIFT. BED LOCKED IN LOWEST POSITION WITH CALL LIGHT IN REACH. WILL ENDORSE PATIENT CARE TO ONCOMING OUTSIDE CONTRACTOR SALES NURSE.
--- NOTE | 2019-08-10 19:09 | NUR ---
OPENING NOTES Receive report from morning shift BENJAMIN Valdes. Patient awake, non verbal. No signs of respiratory distress and discomfort noted. Breathing even and unlabored. On tracheostomy, attached and secured, on mechanical ventilator, operating well, settings AC 12, FIO2 40, PEEP of 5, and Tidal volume of 500. HOB raised. Heels floated with pillow under both lower extremities. G- tube, infusing well at 70ml/hr. IVF infusing well, patency noted. Vital signs taken and recorded. On suprapubic catheter, attached and secured, draining by gravity. On contact precautions. Call light within reach. Safety precautions in place. Bed alarm on. Will continue to monitor patient.
[2019-08-10 20:00] VITALS: BP_SYST 110
--- NOTE | 2019-08-10 20:00 | NUR ---
SPOKE WITH Spoke with Dr. White regarding orders. gave new orders. Will carry out.
--- NOTE | 2019-08-10 21:37 | NUR ---
MED PASS Due medication given at this time via G-tube, residual 0ml, patient tolerated medication well. No signs of respiratory distress and discomfort noted. Breathing even and unlabored. Supra pubic catheter draining well by gravity. Mechanical ventilator operating well. Safety precautions in place. Bed alarm on. Will continue to monitor patient.
[2019-08-10] MEDS: D5LR 1,000 ML IV SCH (21:57)
--- NOTE | 2019-08-11 | NUR ---
RN ROUNDS/HOLD TUBE FEEDING PER MD Order Patient asleep at this time, no signs of respiratory distress and discomfort noted. HOB slightly raised. Breathing even and unlabored. Bilateral Legs and arms are elevated. Hold tube feeding at this for preparation for surgery tomorrow 08/11/19. Safety precautions in place. Will continue to monitor patient.
[2019-08-11 01:02] VITALS: BP_SYST 110
--- NOTE | 2019-08-11 02:31 | NUR ---
RN ROUNDS Patient asleep at this time, no signs of respiratory distress and discomfort noted HOB raised. Breathing even and unlabored. Bilateral Legs and arms are elevated. IVF infusing well, patency noted. Suprapubic catheter, draining well by gravity. Safety precautions in place. Will continue to monitor patient.
[2019-08-11] MEDS: VALPROIC ACID ORAL SYRUP 250 MG/5 ML UDC GT SCH ×4 (02:38→20:43)
[2019-08-11] MEDS: IPRATROPIUM/ALBUTEROL SULFATE 3 ML AMPUL.NEB (DUONEB) INH SCH ×6 (04:02→23:15)
--- NOTE | 2019-08-11 04:35 | NUR ---
PERICARE/WOUND CARE Pericare done at this time, patient tolerated well. Wound care done at this time, patient tolerated well. No signs of respiratory distress and discomfort noted. Breathing even and unlabored. Safety precautions in place. Will continue to monitor patient.
[2019-08-11] MEDS: PIPERACILLIN/TAZO 4.5GM/DEX-IS 100 ML IV SCH ×3 (06:18→20:41)
[2019-08-11] MEDS: LEVOTHYROXINE SODIUM 0.05 MG TABLET PO SCH (06:19)
--- NOTE | 2019-08-11 07:00 | NUR ---
CLOSING NOTES Patient eyes were close, arousable by name. No signs of respiratory distress and discomfort noted. On tracheostomy, attached and secured, on mechanical ventilator, operating well, settings AC 12, FIO2 40, PEEP of 5, and Tidal volume of 500. HOB raised. On NPO/Hold tube feeding for surgery Left BKA today, BENJAMIN Olvera made aware of the surgery. Checklist and consent done. IVF infusing well, patency noted. On suprapubic catheter, attached and secured, draining by gravity. On contact precautions. Call light within reach. Safety precautions in place. All needs met throughout the shift. Will continue to monitor patient until endorsed to oncoming shift nurse for continuity of care.
[2019-08-11 07:40] LABS: BILIRUBIN,URINE NEGATIVE (NEGATIVE); BLOOD, URINE NEGATIVE (NEGATIVE); CLARITY/URINE CLEAR (CLEAR); COLOR,URINE YELLOW (YELLOW); GLUCOSE,URINE NEGATIVE (NEGATIVE); KETONES,URINE NEGATIVE (NEGATIVE); LEUKOCYTE ESTERASE ,URINE NEGATIVE (NEGATIVE); NITRITE, URINE NEGATIVE (NEGATIVE); PROTEIN URINE 1+ (NEGATIVE)
[2019-08-11 07:58] LABS: BACTERIA,URINE FEW /HPF (None Seen); RBC,URINE 0-3 /HPF (0-3)
[2019-08-11 08:00] VITALS: BP_SYST 100
--- NOTE | 2019-08-11 08:00 | NUR ---
initial notes rec patient awake opens eyes but non verbally responsive. pt on mechanical ventilator, and sat at 100 . no osb noted. ivf infuisng well on the r upper picc line. no infiltration noted.gt is clamped and no residual noted. ahuja in placed . npo maintained .t
[2019-08-11 08:21] LABS: INR 1.1 (0.80-1.20); PROTHROMBIN TIME 10.8 SECS (9.5-12.5)
[2019-08-11 08:24] LABS: ALANINE AMINOTRANSFERASE 9 U/L (12-78); ALBUMIN 1.3 g/dL (3.4-4.8); ANION GAP 5 (5-15); ASPARTATE AMINOTRANSFERASE 16 U/L (10-37); CALCIUM 8.3 mg/dL (8.4-11.0); CHLORIDE 110 mmol/L (98-107); CREATININE 0.91 mg/dL (0.55-1.30); GLUCOSE 105 mg/dL (70-99); PHENYTOIN (DILANTIN) 4.1 ug/mL (10.0-20.0); POTASSIUM 3.7 mmol/L (3.5-5.1); SODIUM SERUM 145 mmol/L (136-145); TOTAL BILIRUBIN 0.5 mg/dL (0.0-1.0); UREA NITROGEN, BLOOD 24 mg/dL (8-21); VALPROIC ACID 33 ug/mL (50-100)
[2019-08-11 08:29] LABS: BASOPHILS % (AUTO) 0.8 % (0.0-2.0); EOSINOPHILS # (AUTO) 0.4 K/uL (0.0-0.4); EOSINOPHILS % (AUTO) 7.5 % (0.0-4.0); HEMATOCRIT 23.5 % (36-54); LYMPHOCYTES # (AUTO) 1.6 K/uL (1.0-5.5); LYMPHOCYTES % (AUTO) 26.4 % (20.5-51.5); MEAN CORPUSCULAR HEMOGLOBIN 36 pg (27-31); MEAN CORPUSCULAR HGB CONC 32 % (32-36); MEAN CORPUSCULAR VOLUME 110 fL (79.0-98.0); MONOCYTES # (AUTO) 0.7 K/uL (0.0-1.0); MONOCYTES % (AUTO) 11.7 % (1.7-9.3); NEUTROPHILS # (AUTO) 3.2 K/uL (1.8-7.7); NEUTROPHILS % (AUTO) 53.6 % (40.0-70.0); PLATELET COUNT (AUTO) 273 K/uL (130-430); RED BLOOD CELL COUNT(AUTO) 2.14 MIL/uL (4.2-6.2); RED CELL DISTRIBUTION WIDTH 20.2 % (9.0-15.0); WHITE BLOOD COUNT (AUTO) 5.9 K/uL (4.8-10.8)
[2019-08-11 08:43] LABS: HEMOGLOBIN 7.6 g/dL (14.0-18.0)
[2019-08-11] MEDS: FUROSEMIDE 20 MG TABLET GT SCH ×2 (09:00→20:42)
[2019-08-11] MEDS: PHENYTOIN 100 MG/4 ML UDC (DILANTIN) GT SCH ×3 (09:00→20:41)
[2019-08-11] MEDS: ERGOCALCIFEROL 8000 UNITS/ML ORAL SOLUTION, 60 ML BOTTLE GT SCH (09:00)
[2019-08-11] MEDS: LANSOPRAZOLE 30 MG CAPSULE.DR GT SCH ×2 (09:00→10:10)
[2019-08-11] MEDS: DOCUSATE SODIUM 100 MG/10 ML UDC GT SCH (09:00)
[2019-08-11] MEDS: MULTIVIT-MINERALS/FERROUS GLUC 15 ML UDC GT SCH (09:00)
[2019-08-11] MEDS: KETOCONAZOLE 200 MG TABLET GT SCH (09:00)
[2019-08-11] MEDS: FOLIC ACID 1 MG TABLET GT SCH (09:00)
[2019-08-11] MEDS: HYDROCORTISONE 1%, 28.35 GM TOPICAL CREAM TP SCH ×2 (10:07→20:44)
[2019-08-11] MEDS: BALSAM PERU/CASTOR OIL 60 GM OINT...G. TP SCH (10:07)
[2019-08-11] MEDS: FERROUS SULFATE 300 MG/5 ML UDC GT SCH (10:13)
--- NOTE | 2019-08-11 10:20 | NUR ---
rounds pt's chg bath given prior to sx. had a bowel movement blackish in color and pasty. cleans and repostioned. meds where on hold. no sob noted.
[2019-08-11 11:47] VITALS: BP_SYST 93
--- NOTE | 2019-08-11 14:00 | NUR ---
rounds pt stable and awaiting for sx at 1700 . bed to the lowest position and side rails up and locked.
--- NOTE | 2019-08-11 16:00 | NUR ---
rounds still awaiting for sx and or nurse stated about 1900 tonight. npo maintained .no sob noted.
--- NOTE | 2019-08-11 17:20 | NUR ---
rounds first unit of blood started on the r upper arm picc line. no sob noted. statyed with patient and observed for any blood transfusion reaction such chest pain, fever shine pain or rashes. no untoward reaction noted.checked at [facility] with juan josé charged nurse
[2019-08-11 18:20] VITALS: BP_SYST 95
--- NOTE | 2019-08-11 18:45 | NUR ---
closing notes endorsed to night nurse re blood transfusion still in progress. n osb noted. no untoward reaction noted. bed to the lowest position and side rails up and locked.
--- NOTE | 2019-08-11 19:55 | NUR ---
OPENING NOTES Received report from BENJAMIN Olvera. Patient is resting in bed, eyes closed, breathing evenly and nonlabored. Patient is on a mechanical vent: AC: 12, TV: 500, Fio2: 40%, Peep: 5. Patient has a AC PICC line double lumen. Patient is currently receiving 1unit of blood started at approximately 1600 per BENJAMIN Olvera. Patient has a Shipman catheter secured and draining by gravity. Educated patient on plan of care, safety/fall/aspiration/seizure precautions, patient unable to state understanding due to being nonverbal and cognitive limitations. Bed is locked, armed and at lowest position. Will continue to monitor.
[2019-08-11 20:05] VITALS: BP_SYST 97
[2019-08-11] MEDS: D5LR 1,000 ML IV SCH (20:44)
--- NOTE | 2019-08-11 20:48 | NUR ---
ROUNDS Patient is resting in bed, eyes open, breathing evenly and nonlabored. Performed hygiene care on patient, wound care on left forehead done. Educated patient on medications, patient unable to state understanding due to cognitive limitations. Administered medications, patient tolerated them well. Restarted GT feeding, will stop it at midnight as MD ordered. Fall/safety/aspiration/seizure precautions.
[2019-08-12] VITALS (8 sets, daily range): BP systolic 84–114
--- NOTE | 2019-08-12 | NUR ---
ROUNDS Patient is resting in bed, eyes open, breathing evenly and nonlabored. Stopped GT feeding. No s/s of distress at this time, no other needs at this time. Fall/safety/aspiration/seizure precautions.
--- NOTE | 2019-08-12 02:15 | NUR ---
RN ROUNDS Patient asleep, breathing is even and unlabored, gt feeding on hold, patient npo, repositioned and turned with pillow support, bilateral heels offloaded with pillow support, safety measures in place, will monitor.
[2019-08-12] MEDS: VALPROIC ACID ORAL SYRUP 250 MG/5 ML UDC GT SCH ×2 (03:00→09:00)
--- NOTE | 2019-08-12 03:45 | NUR ---
BLOOD PRESSURE DROPPED IN THE 70 SYSTOLIC,STARTED PATIENT ON LEVOPHED AT 2 MCG/MIN,THE TITRATED UP FOR B/P SUPPORT.
[2019-08-12] MEDS: IPRATROPIUM/ALBUTEROL SULFATE 3 ML AMPUL.NEB (DUONEB) INH SCH ×5 (03:55→19:00)
--- NOTE | 2019-08-12 04:05 | NUR ---
ROUNDS Patient is resting in bed, eyes closed, breathing evenly and nonlabored. No s/s of distress at this time, no other needs at this time. Fall/safety/aspiration/seizure precautions. Will continue to monitor.
[2019-08-12] MEDS: LEVOTHYROXINE SODIUM 0.05 MG TABLET PO SCH (05:22)
[2019-08-12] MEDS: PIPERACILLIN/TAZO 4.5GM/DEX-IS 100 ML IV SCH ×3 (05:22→22:03)
--- NOTE | 2019-08-12 06:00 | NUR ---
CLOSING NOTES/WOUND CARE Patient is resting in bed, eyes open, breathing evenly and nonlabored. Educated patient on due medication, patient unable to state understanding due to cognitive limitations. Administered medication, patient tolerated it well. Hygiene care done, wound care done on right lower extremity. Patient tolerated it well. No other needs at this time. Will endorse care to morning shift RN. Fall/safety/respiratory/aspiration/seizure/isolation precautions. Addendum: 08/12/19 at 0644 by Rolo Wiseman RN wound care on buttock also done.
[2019-08-12 06:31] LABS: BASOPHILS # (AUTO) 0.1 K/uL (0.0-0.2); BASOPHILS % (AUTO) 0.8 % (0.0-2.0); EOSINOPHILS # (AUTO) 0.3 K/uL (0.0-0.4); EOSINOPHILS % (AUTO) 4.8 % (0.0-4.0); HEMATOCRIT 30.3 % (36-54); HEMOGLOBIN 9.9 g/dL (14.0-18.0); LYMPHOCYTES # (AUTO) 1.6 K/uL (1.0-5.5); LYMPHOCYTES % (AUTO) 25.1 % (20.5-51.5); MEAN CORPUSCULAR HEMOGLOBIN 34 pg (27-31); MEAN CORPUSCULAR HGB CONC 33 % (32-36); MEAN CORPUSCULAR VOLUME 105 fL (79.0-98.0); MONOCYTES # (AUTO) 0.8 K/uL (0.0-1.0); MONOCYTES % (AUTO) 12.8 % (1.7-9.3); NEUTROPHILS # (AUTO) 3.6 K/uL (1.8-7.7); NEUTROPHILS % (AUTO) 56.5 % (40.0-70.0); PLATELET COUNT (AUTO) 308 K/uL (130-430); RED BLOOD CELL COUNT(AUTO) 2.89 MIL/uL (4.2-6.2); RED CELL DISTRIBUTION WIDTH 24.8 % (9.0-15.0); WHITE BLOOD COUNT (AUTO) 6.4 K/uL (4.8-10.8)
--- NOTE | 2019-08-12 07:30 | NUR ---
INITIAL NOTE PT RESTING IN BED. PT ON MECHANICAL VENT, TOLERATING WELL. HENSLEY DRAINING TO GRAVITY. IVF INFUSING WELL. CALL LIGHT WITHIN REACH, BED IN LOW AND LOCKED POSITION WITH BED ALARM ON. ISOLATION PRECAUTIONS IN PLACE.
--- NOTE | 2019-08-12 08:30 | NUR ---
DR. MCNEIL SPOKE WITH MD VIA PHONE. PT TO REMAIN NPO. SURGERY WILL BE AROUND 5PM PER MD. VERIFIED WITH READ BACK.
[2019-08-12] MEDS: BALSAM PERU/CASTOR OIL 60 GM OINT...G. TP SCH (08:59)
[2019-08-12] MEDS: HYDROCORTISONE 1%, 28.35 GM TOPICAL CREAM TP SCH (08:59)
[2019-08-12] MEDS: FOLIC ACID 1 MG TABLET GT SCH (09:00)
[2019-08-12] MEDS: DOCUSATE SODIUM 100 MG/10 ML UDC GT SCH (09:00)
[2019-08-12] MEDS: FUROSEMIDE 20 MG TABLET GT SCH ×2 (09:00→21:00)
[2019-08-12] MEDS: KETOCONAZOLE 200 MG TABLET GT SCH (09:00)
[2019-08-12] MEDS: ERGOCALCIFEROL 8000 UNITS/ML ORAL SOLUTION, 60 ML BOTTLE GT SCH (09:00)
[2019-08-12] MEDS: MULTIVIT-MINERALS/FERROUS GLUC 15 ML UDC GT SCH (09:00)
[2019-08-12] MEDS: PHENYTOIN 100 MG/4 ML UDC (DILANTIN) GT SCH (09:00)
[2019-08-12] MEDS: LANSOPRAZOLE 30 MG CAPSULE.DR GT SCH (09:00)
[2019-08-12] MEDS: FERROUS SULFATE 300 MG/5 ML UDC GT SCH (09:00)
--- NOTE | 2019-08-12 09:30 | NUR ---
RN ROUNDS PT RESTING IN BED. CHANGED SUPRAPUBIC DRESSING AND G-TUBE. NO ACUTE DISTRESS DURING OR AFTER. PT TOLERATED WELL.
--- NOTE | 2019-08-12 11:30 | NUR ---
RN ROUNDS PT RESTING IN BED, NO ACUTE DISTRESS NOTED, PT ON MECHANICAL VENT. REPOSITIONED FOR COMFORT.
--- NOTE | 2019-08-12 13:30 | NUR ---
RN ROUNDS PT RESTING, NO ACUTE DISTRESS NOTED. WILL CONTINUE TO MONITOR.
[2019-08-12] MEDS: D5LR 1,000 ML IV SCH ×2 (13:54→22:05)
--- NOTE | 2019-08-12 14:35 | NUR ---
DR. JABIER MOMIN EXAMINING PT AT BEDSIDE. INFORMED MD THAT PT RIGHT ARM IS SWOLLEN. MD WANTS TO KEEP ARM ELEVATED WITH PILLOW SUPPORT. INFORMED THAT SURGERY WITH DR. MCNEIL IS SCHEDULED TODAY AT 5PM.
--- NOTE | 2019-08-12 17:30 | NUR ---
LEFT TO OR PT ACCOMPANIED BY OR NURSE AND RT. CHART WITH PATIENT.
--- NOTE | 2019-08-12 17:30 | NUR ---
RT NOTES Transported pt to O.R bagging w/ 100% O2 via ambubag to trach tube. Trach tube remains secure, anesthesiologist took over bagging.
--- NOTE | 2019-08-12 18:45 | NUR ---
CLOSING NOTE PT REMAINS IN OR. GAVE REPORT TO ONCOMING CRULLER MAKER MACHINE. ALL NEEDS MET THROUGHOUT SHIFT.
[2019-08-12] MEDS ORDERED: ROCURONIUM BROMIDE 10 MG/ML (ZEMURON) ONE (19:30)
[2019-08-12] MEDS ORDERED: fentaNYL CITRATE/PF 100 MCG/2 ML AMP ONE (19:30)
[2019-08-12] MEDS ORDERED: SEVOFLURANE 15 MIN GAS INH ONE (19:30)
[2019-08-12] MEDS ORDERED: MIDAZOLAM HCL 5 MG/ML VIAL (VERSED) IV ONE (19:30)
[2019-08-12] MEDS ORDERED: NS IRRIG SOLN 1000 ML IR ONE (19:30)
[2019-08-12] MEDS ORDERED: LR 1,000 ML IV.SOLN IV ONE (19:30)
--- NOTE | 2019-08-12 20:20 | NUR ---
RECEIVED PATIENT FROM RECOVERY ROOM WITH FLIGHT DIRECTOR AND RR RN VIA BED WITH TRACH IN PLACE CONNECTED TO VENTILATORR.PATIENT IS S/P AMPUTATION OF LEFT BELOW KNEE.PATIENT HAS STEFANIE DRESSING ON SURGICAL SITE,PATIENT IS TACHYPNEIC ONMONITOR ,IS TACHYCARFIC AND HYPOTENSIVE,PACKED RED CELL IS INFUSING THRU RIGHT UPOPER ARM PICC LINE ON BLOOD WARMER.PATIENT IS EDEMATOUS NOTED GENERALIZED RASHES IN ENTIRE BODY,TRACH IN PLACE SHILEY #8PATIENT IS COOL AND DRY AND ALL EXTREMITIES ARE COLD TO TOUCH VERY DIFFICULT TO OBTAIN PULSE OXIMETRY.KEPT PATIENT WAR. ABG DRAWNED WITH DIFFICULTY AND RESULT PAGED TO DR LINARES BUT DR CALZADA IS DESKTOP SUPPORT TECHNICIAN.DR CALZADA CALLED BACK E\WITH ORDER. MEANTIME PATIENT IS BUBBLING FOAMY WHITE SECRETIONS FROM THE MOUTHSUCTIONE PATIENT
--- NOTE | 2019-08-12 21:03 | NUR ---
REPORT-ICU Patient transferred to ICU after surgery, patient had no belongings, bedside report given to BENJAMIN Ruiz. All patient antibiotics brought to ICU.
--- NOTE | 2019-08-12 21:16 | NUR ---
PAGED DR. LOGAN/DR. CALZADA RELEASE SPECIALIST [phone] SPOKE WITH SALBADOR
--- NOTE | 2019-08-12 22:00 | NUR ---
DR CALZDAA INFORMED AF ABG RESULT WITH ORDER.
--- NOTE | 2019-08-12 22:00 | NUR ---
PAGED DR. CALZADA [phone] SPOKE WITH HENOK
[2019-08-12] MEDS ORDERED: NACL 0.9% 1,000 ML IV ONE (22:30)
[2019-08-12] MEDS ORDERED: ALTEPLASE 2 MG VIAL MC ONE ×2 (22:45→23:13)
--- NOTE | 2019-08-12 22:49 | NUR ---
PAGED DR. CALZADA [phone] SPOKE WITH SALBADOR
--- NOTE | 2019-08-12 23:00 | NUR ---
DR CALZADA HERE AND INTUBATED PATIENT USING STOMA OF [facility] SITE,INTUBATION WAS DIFFICULT FOR DR CALZADA.ETT SIZE IS NO.6 AT LEVEL 14 ,POST INTUBATION CHEST X RAY DONE
[2019-08-12] MEDS ORDERED: ETOMIDATE 20 MG/ 10 ML VIAL (AMIDATE) IVP ONE (23:45)
[2019-08-13] VITALS (21 sets, daily range): BP systolic 72–163
[2019-08-13] MEDS: HYDROCORTISONE 1%, 28.35 GM TOPICAL CREAM TP SCH ×2 (00:12→10:18)
[2019-08-13] MEDS ORDERED: NOREPINEPHRINE 4 MG/4 ML VIAL IV ONE ×7 (03:46→18:08)
[2019-08-13] MEDS: NOREPINEPHRINE BITARTRATE 4 MG in NS 246 ML IV PRN ×4 (03:55→18:02)
[2019-08-13] MEDS: PIPERACILLIN/TAZO 4.5GM/DEX-IS 100 ML IV SCH ×2 (05:28→13:49)
--- NOTE | 2019-08-13 06:00 | NUR ---
PATIENT HAD LARGE BOWEL MOVEMENT DARK GREENISH IN COLOR PARTIAL LINENS CHANGED.PATIENT NOW ON 6 MCG/MIN OF LEVOPHED.
[2019-08-13 06:38] LABS: HEMATOCRIT 25.3 % (36-54); HEMOGLOBIN 8.2 g/dL (14.0-18.0); MEAN CORPUSCULAR HEMOGLOBIN 33 pg (27-31); MEAN CORPUSCULAR HGB CONC 33 % (32-36); MEAN CORPUSCULAR VOLUME 101 fL (79.0-98.0); PLATELET COUNT (AUTO) 487 K/uL (130-430); RED BLOOD CELL COUNT(AUTO) 2.51 MIL/uL (4.2-6.2); RED CELL DISTRIBUTION WIDTH 24.5 % (9.0-15.0)
[2019-08-13] MEDS: LEVOTHYROXINE SODIUM 0.05 MG TABLET PO SCH (07:00)
--- NOTE | 2019-08-13 07:15 | NUR ---
Opening Note Received bedside report from endorsing RN for continuation of care. Received patient resting in bed, intubated, unable to follow commands. No signs or symptoms of acute distress noted. Bed locked in lowest position and bed alarm on. Fall and safety precautions in place.
[2019-08-13] MEDS: IPRATROPIUM/ALBUTEROL SULFATE 3 ML AMPUL.NEB (DUONEB) INH SCH ×4 (07:19→15:00)
[2019-08-13 07:34] LABS: ANION GAP 16 (5-15); CALCIUM 8.2 mg/dL (8.4-11.0); CHLORIDE 111 mmol/L (98-107); CREATININE 1.43 mg/dL (0.55-1.30); GLUCOSE 108 mg/dL (70-99); SODIUM SERUM 147 mmol/L (136-145); UREA NITROGEN, BLOOD 23 mg/dL (8-21)
[2019-08-13 07:55] LABS: WHITE BLOOD COUNT (AUTO) 16.3 K/uL (4.8-10.8)
--- NOTE | 2019-08-13 08:30 | NUR ---
Dr. Herrera at bedside examining patient. New orders received.
[2019-08-13] MEDS: BALSAM PERU/CASTOR OIL 60 GM OINT...G. TP SCH (09:00)
[2019-08-13] MEDS: ERGOCALCIFEROL 8000 UNITS/ML ORAL SOLUTION, 60 ML BOTTLE GT SCH (09:00)
--- NOTE | 2019-08-13 09:20 | NUR ---
Dr. Anaya in to see patient. No new orders.
[2019-08-13] MEDS ORDERED: DOPamine PREMIX 250 ML IV ONE (09:49)
[2019-08-13] MEDS: FUROSEMIDE 20 MG TABLET GT SCH (10:16)
[2019-08-13] MEDS: KETOCONAZOLE 200 MG TABLET GT SCH (10:16)
[2019-08-13] MEDS: DOPamine PREMIX 250 ML IV PRN ×2 (10:16→13:24)
[2019-08-13] MEDS: FOLIC ACID 1 MG TABLET GT SCH (10:16)
[2019-08-13] MEDS: MULTIVIT-MINERALS/FERROUS GLUC 15 ML UDC GT SCH (10:16)
[2019-08-13] MEDS: LANSOPRAZOLE 30 MG CAPSULE.DR GT SCH (10:17)
[2019-08-13] MEDS: DOCUSATE SODIUM 100 MG/10 ML UDC GT SCH (10:17)
[2019-08-13] MEDS: FERROUS SULFATE 300 MG/5 ML UDC GT SCH (10:17)
--- NOTE | 2019-08-13 10:26 | NUR ---
Dr. Rehman at bedside examining patient. New orders received.
[2019-08-13] MEDS ORDERED: HYDROCORTISONE SOD SUCC 100 MG/2 ML VIAL IVP ONE (10:30)
--- NOTE | 2019-08-13 10:50 | NUR ---
Dr. Mari in to see patient. No new orders. Addendum: 08/13/19 at 1156 by Rahel Chao RN New orders received.
[2019-08-13] MEDS ORDERED: VANCOMYCIN HCL 1,500 MG in NS 250 ML IV SCH (11:00)
--- NOTE | 2019-08-13 11:11 | NUR ---
Wound Re-Evaluation Attempted: Wound re-evaluation attempted, but unable to turn patient for assessment due to hemodynamic instability (Levophed at 30 mcg/min, Dopamine at 25 mcg/kg/min), severe hypotension (76/41) and tachycardia (140 bpm). A temporary tube is in place for the tracheostomy, but unstable (cannot turn patient for risk of dislodgement). A new tracheostomy tube is planned to be placed.
--- NOTE | 2019-08-13 11:23 | NUR ---
Spoke with Dr. Rehman regarding patient's blood pressure. New orders received.
[2019-08-13] MEDS ORDERED: NS 500 ML IV ONE (11:30)
[2019-08-13 11:56] LABS: ATYPICAL LYMPHOCYTES % 3 % (0-0); BAND % (MANUAL) 30 % (0-6); BASOPHILS % (MANUAL) 0 % (0-2); EOSINOPHILS % (MANUAL) 0 % (0-7); LYMPHOCYTES % (MANUAL) 24 % (20-46); METAMYELOCYTES % 1 % (0-0); MONOCYTES % (MANUAL) 10 % (0-11)
[2019-08-13 11:58] LABS: WBC MORPHOLOGY TOXIC VACUOLATION
--- NOTE | 2019-08-13 12:00 | NUR ---
Patient is hemodynamically unstable. Unable to do wound care or reposition patient due to hemodynamic instability and risk of temporary tracheostomy tube dislodgement. Levophed @ 30 mcg/kg/min and Dopamine @ 20 mcg/kg/min. Patient's BP is 76/41, HR 140. Patient has temporary tube in place for tracheostomy.
[2019-08-13] MEDS: PHENYTOIN 100 MG/4 ML UDC (DILANTIN) GT SCH ×2 (13:25→13:51)
[2019-08-13] MEDS ORDERED: PHENYTOIN 100 MG/4 ML UDC (DILANTIN) ONE (13:31)
[2019-08-13] MEDS: VALPROIC ACID ORAL SYRUP 250 MG/5 ML UDC GT SCH ×2 (13:53→14:36)
[2019-08-13] MEDS ORDERED: HYDROCORTISONE SOD SUCC 100 MG/2 ML VIAL IVP SCH (14:00)
--- NOTE | 2019-08-13 14:21 | NUR ---
Nutrition F/U RD reviewed pt's current EMR including diet hx, physician notes, nursing notes, pertinent labs/meds/procedures, care trends and care activity. Admitting Diagnosis: Osteomyelitis of the right foot Pertinent Medical information: 08/12/19 S/P Left BKA Current Diet Order/Nutrition Support: Glucerna 1.5 at 70ml/hr with Caden BID, FWF 100ml Q6H via GT Provides: 2680 kcal/day, 149 gm protein/day, and 1675 ml free water/day Meets: 120% of estimated caloric needs and % of upper end of estimated protein needs Subjective Information: Pt seen resting in bed w/ trach to vent, POD#1, RN at bedside providing care. EN not infusing at time of RD visit and RN reported that EN has been on hold since Sx d/t hypotension and hemodynamically unstable state. RN to restart EN support later in the day. Last BM 08/13/19 also noted multiple skin ulcers per Fill Technician note. NEW Estimated Energy Expenditure (kcals/day) (Ve: 14.7; Temperature 98.6'F/37'C) 2231 ([facility] 2009 for chronic dz and wound healing) Estimated Protein Required (g/day) 90-156 g/day (1.2-2g/kg based on IBW for chronic dz and wound healing) Estimated Fluid Required (l/day) 1.9-2.3L/day (25-30ml/kg based on IBW for maintenance) Problem/Etiology/Signs/Symptoms Increased nutrient needs related to wound healing as evidenced by multiple pressure injuries *ongoing* Expected Outcomes/Goals Monitor EN tolerance and intake w/ goal of pt meeting at least 75% of estimated nutritional needs, labs trending WNL, normal GI function, skin integrity/wt maintenance. Dietitian Recommendations * Recommend: Glucerna 1.5 at 60ml/hr (goal rate), Caden BID, FWF 100ml Q6H via GT Provides: 06465 kcal, 79 gm protein and 1493ml free water daily. Meets: 104% of est calorie needs and 79% of upper end of est protein needs. Follow Up High Risk: F/U in 2-3 days
--- NOTE | 2019-08-13 15:10 | NUR ---
Dietitian Recommendations * Recommend: Glucerna 1.5 at 60ml/hr (goal rate), Caden BID, FWF 100ml Q6H via GT Provides: 72897 kcal, 79 gm protein and 1493ml free water daily. Meets: 104% of est calorie needs and 79% of upper end of est protein needs. Please see nutrition f/u note for details. LILIA, RD
--- NOTE | 2019-08-13 16:41 | NUR ---
CONSULT PAGED CONSULTING MD: DR. KIRK CONSULTING SPECIALITY: CARDIO. SPOKE TO: BHARAT DIALED: [phone] ORDERED BY: DR. EUGENE
--- NOTE | 2019-08-13 16:42 | NUR ---
Dr. hWite at bedside examining patient. New orders received.
--- NOTE | 2019-08-13 16:50 | NUR ---
CONSULT PAGED CONSULTING MD: DR. OTERO CONSULTING SPECIALITY: NEURO. SPOKE TO: SALBADOR DIALED: [phone] ORDERED BY: DR. EUGENE
[2019-08-13] MEDS ORDERED: PHENYLEPHRINE HCL 10 MG/ML VIAL (NEOSYNEPHRINE) ONE (16:57)
--- NOTE | 2019-08-13 17:49 | NUR ---
Dr. Romero at bedside examining patient. New orders received.
[2019-08-13] MEDS ORDERED: PHENYLEPHRINE HCL 30 MG in NS 247 ML IV PRN (18:00)
--- NOTE | 2019-08-13 18:19 | NUR ---
Dr. Arizmendi in to see patient. No new orders.
--- NOTE | 2019-08-13 18:38 | NUR ---
Patient's HR noted to be 40, unable to palpate carotid or femoral pulse. See Code Blue flowsheet.
[2019-08-13] MEDS ORDERED: ATROPINE SULFATE 1 MG/10 ML SYRINGE IVP ONE (18:59)
[2019-08-13] MEDS ORDERED: EPINEPHrine JECT 0.1 MG/ML SYR IVP ONE (18:59)
[2019-08-13 19:10] LABS: ANION GAP 29 (5-15); CALCIUM 8.1 mg/dL (8.4-11.0); CHLORIDE 110 mmol/L (98-107); CREATININE 1.95 mg/dL (0.55-1.30); GLUCOSE 74 mg/dL (70-99); SODIUM SERUM 146 mmol/L (136-145); UREA NITROGEN, BLOOD 24 mg/dL (8-21)
--- NOTE | 2019-08-13 19:10 | NUR ---
CONTACTED DL DORMAN, CONSERVATOR BUT NO ANSWER.ALSO ATTEMPTED TO CALL THE OTHER NUMBER ALSO BUT NO ANSWER.
--- NOTE | 2019-08-13 19:14 | NUR ---
Consults notified of patient's expiration. Spoke with exchanges.
[2019-08-13 19:25] LABS: POTASSIUM 6.5 mmol/L (3.5-5.1)
--- NOTE | 2019-08-13 21:00 | NUR ---
There's a question of a possible coroners case because pt within 24 hrs of surgery.will hold pt here till tomorrow , until dr Anaya get the clearance.
--- NOTE | 2019-08-14 07:30 | NUR ---
Contacted Dr Anaya and will call coroners office
--- NOTE | 2019-08-14 07:40 | NUR ---
Dr Anaya called back and he claims that he talked to officer [place] and was told that pt is not coroners case.
== END 2019-08-13 19:00 | disposition expired | DRG 853 ==
LOC: SED 15:40 → STU 17:21 → SIC 08-12 20:00
PROVIDERS: ADMIT Internal Medicine; ATTEND Internal Medicine
PROC: 5A1955Z Respiratory Ventilation, Greater than 96 Consecutive Hours (ICD-10-PCS; principal; 2019-07-25)
PROC: 02HV33Z Insertion of Infusion Device into Superior Vena Cava, Percutaneous Approach (ICD-10-PCS; 2019-07-26)
PROC: 30233N1 Transfusion of Nonautologous Red Blood Cells into Peripheral Vein, Percutaneous Approach (ICD-10-PCS; 2019-08-11)
PROC: 0Y6J0Z3 Detachment at Left Lower Leg, Low, Open Approach (ICD-10-PCS; 2019-08-12)
PROC: 0B21XFZ Change Tracheostomy Device in Trachea, External Approach (ICD-10-PCS; 2019-08-12)
DX: A41.9 Sepsis, unspecified organism (principal); J15.6 Pneumonia due to other Gram-negative bacteria; R65.21 Severe sepsis with septic shock; G82.50 Quadriplegia, unspecified; J96.20 Acute and chronic respiratory failure, unspecified whether with hypoxia or hypercapnia; I63.9 Cerebral infarction, unspecified; N39.0 Urinary tract infection, site not specified; G93.49 Other encephalopathy; E11.52 Type 2 diabetes mellitus with diabetic peripheral angiopathy with gangrene; E46 Unspecified protein-calorie malnutrition; E87.2 Acidosis; Z16.24 Resistance to multiple antibiotics; J44.0 Chronic obstructive pulmonary disease with (acute) lower respiratory infection; E87.1 Hypo-osmolality and hyponatremia; Z99.11 Dependence on respirator [ventilator] status; G93.1 Anoxic brain damage, not elsewhere classified; M86.8X6 Other osteomyelitis, lower leg; L97.428 Non-pressure chronic ulcer of left heel and midfoot with other specified severity; L97.418 Non-pressure chronic ulcer of right heel and midfoot with other specified severity; J95.851 Ventilator associated pneumonia; N17.9 Acute kidney failure, unspecified; L89.629 Pressure ulcer of left heel, unspecified stage; I12.9 Hypertensive chronic kidney disease with stage 1 through stage 4 chronic kidney disease, or unspecified chronic kidney disease; N18.9 Chronic kidney disease, unspecified; D63.1 Anemia in chronic kidney disease; E11.22 Type 2 diabetes mellitus with diabetic chronic kidney disease; E03.9 Hypothyroidism, unspecified; E11.69 Type 2 diabetes mellitus with other specified complication; I46.9 Cardiac arrest, cause unspecified; E66.9 Obesity, unspecified; E78.5 Hyperlipidemia, unspecified; E87.5 Hyperkalemia; J38.6 Stenosis of larynx; F02.80 Dementia in other diseases classified elsewhere, unspecified severity, without behavioral disturbance, psychotic disturbance, mood disturbance, and anxiety; G30.9 Alzheimer's disease, unspecified; Y95 Nosocomial condition; G40.909 Epilepsy, unspecified, not intractable, without status epilepticus; K21.9 Gastro-esophageal reflux disease without esophagitis; R13.10 Dysphagia, unspecified; L40.9 Psoriasis, unspecified; Z93.1 Gastrostomy status; Z93.0 Tracheostomy status; Z86.73 Personal history of transient ischemic attack (TIA), and cerebral infarction without residual deficits; Z68.38 Body mass index [BMI] 38.0-38.9, adult; Z88.1 Allergy status to other antibiotic agents; Z88.2 Allergy status to sulfonamides; Z79.899 Other long term (current) drug therapy
CPT/HCPCS: 36415; 36600; 71045; 73650-TC; 73706; 78300-TC; 80048; 80053; 80061; 80164-TC; 80185-TC; 81000-TC; 82140-TC; 82272; 82306; 82607; 82728; 82746; 82803-TC; 82962; 83036; 83540-TC; 83550-TC; 83605; 83735-TC; 83880; 84100-TC; 84439; 84443-TC; 84484; 85007; 85025; 85027; 85044-TC; 85610-TC; 85730-TC; 86886; 86900; 86901; 86920; 87040-TC; 87070-TC; 87081; 87086; 87186-TC; 87205-TC; 88307; 92950; 93005; 93923; 93970; 94002; 94003; 94640; 94760; 96365; 96366; 99285; A6209; A9503; G0378; J0171; J0461; J0885; J1265; J1650; J1720; J1940; J2020; J2060; J2250; J2370; J2543; J2916; J2997; J3010; J3370; J3490; J7030; J7050; J7060; J7120; J7620; P9021; Q9967